=== PATIENT | male | born 1975 | race Caucasian/White ===

== ENCOUNTER 2019-12-28 14:53 | Outpatient (CLI) | payer OTHER, SELFPAY ==
--- NOTE | 2019-12-28 14:59 | MR_ITS ---
WS: [id number] MRI HEAD WITH CONTRAST WITH ATTENTION TO THE INTERNAL AUDITORY CANALS TECHNIQUE: Sagittal T1, T2 axial, T2 axial flair, axial susceptibility weighted imaging, axial diffus ion weighted images, and coronal T2 images were obtained. Pre and post T1 axial and post T1 coronal i mages. ADC and FSPGR images. Post gadolinium images with attention to the internal auditory canals. A xial fiesta imaging. CLINICAL INFORMATION: SARAH SENSORINEURAL HEARING LOSS;TINNITUS RT EAR COMPARISON: None. FINDINGS: No evidence of restricted diffusion to suggest acute ischemia. Ventricular system and basal cisterns are patent. Incidental cavum septum callosum and vergae. No suspicious intracranial signal abnormalities. Mild parenchymal volume loss. Normal posterior fossa. Normal vascular flow voids at the skull base. No extra-axial fluid collection s. No evidence of mass or mass effect. Paranasal sinuses are well aerated. Mild mucosal thickening in the mastoid air cells. Proximal 7th an d 8th cranial nerves appear normal. Normal trigeminal nerve root entry zones. No evidence of enhancin g IAC or CP angle mass. No abnormal gadolinium enhancement. Normal dural venous sinuses. Prominent cervical lymph nodes in the upper cervical chains likely reactive. Normal optic chiasm and pituitary infundibulum. Normal cavernous sinuses and Meckel's cave. No hemosiderin on the susceptibly weighted images. MR/MR iac's wo/w con* [id number] IMPRESSION: 1. No evidence of restricted diffusion to suggest acute ischemia. 2. No evidence of enhancing IAC or CP angle mass. Normal trigeminal nerve root entry zones. 3. Mild mucosal thickening in the mastoid air cells. 4. Paranasal sinuses are well aerated. 5. Mild parenchymal volume loss. 6. No abnormal intracranial enhancement. 7. Prominent cervical lymph nodes in the upper cervical chains partially visua lized nonspecific but likely reactive.
== END 2019-12-28 14:54 | disposition home or self-care (01) ==
LOC: RADSHAW 14:57
PROVIDERS: Family Provider Nurse Practitioner; PCP Nurse Practitioner; Visit Provider Specialist
DX: H90.3 Sensorineural hearing loss, bilateral (principal); H93.11 Tinnitus, right ear
CPT/HCPCS: 70553; A9579

== ENCOUNTER → 2021-04-16 08:07 | Outpatient (BNVA) | payer OTHER, SELFPAY | PROVIDERS: Family Provider Nurse Practitioner; PCP Nurse Practitioner; Referring Provider Family Medicine; Visit Provider Specialist | DX: G56.02 Carpal tunnel syndrome, left upper limb (principal); M79.641 Pain in right hand | CPT/HCPCS: 73130 ==

== ENCOUNTER → 2021-04-25 09:06 | Outpatient (BNVA) | payer OTHER, SELFPAY | PROVIDERS: Family Provider Nurse Practitioner; PCP Nurse Practitioner; Visit Provider Specialist | DX: Z20.822 Contact with and (suspected) exposure to COVID-19 (principal); G56.02 Carpal tunnel syndrome, left upper limb | CPT/HCPCS: 87635 ==

== ENCOUNTER 2021-05-01 05:52 | Day surgery (SDC) | payer OTHER, SELFPAY ==
[2021-04-30 12:30] VITALS: BMI 30.1
[2021-05-01 06:06] VITALS: BP 160/102; PULSE 76; RESP 18; TEMP 36.1; O2SAT 98
[2021-05-01] MEDS: sodium chloride 0.9% 1,000 ML 30 ML IV (06:40)
[2021-05-01] MEDS: acetaminophen 1,000 MG/100 ML PIGGYBACK 400 MG IV (06:41)
[2021-05-01] MEDS: CELEcoxib 200 mg Capsule 400 MG PO (06:41)
--- NOTE | 2021-05-01 06:56 | W.PM.OPSUD ---
Surgery/Procedure H&P Update DATE OF PROCEDURE: May 01, 2021 DATE H&P PERFORMED: 04/16/21 H&P UPDATE INFORMATION: I have reviewed H&P completed within last 30 days, I have examined patient prior to procedure and No changes to prior documentation PREOP DIAGNOSIS: Left carpal tunnel syndrome PLANNED PROCEDURE: Operation Date: 05/01/21 07:00 Proposed Procedures p Carpal Tunnel Release [id number] G56.00(Left) - Christie Kelly MD Related Problem List Diagnoses (1) Left carpal tunnel syndrome:
--- NOTE | 2021-05-01 06:57 | ANES.PREANE2 ---
Pre-Anesthetic Assessment Pre-Anesthetic Assessment: Height/Weight: Height 1.78 m Weight 95.254 kg Temp Pulse Resp BP Pulse Ox 97.0 F L 76 18 160/102 98 05/01/21 06:06 05/01/21 06:06 05/01/21 06:06 05/01/21 06:06 05/01/21 06:06 Preop Diagnosis: Left carpal tunnel syndrome Proposed Procedure: Operation Date: 05/01/21 07:00 Proposed Procedures p Carpal Tunnel Release [id number] G56.00(Left) - Christie Kelly MD Was Beta Aicha taken within 24 hours: N/A Was Clonidine taken within 24 hours: N/A Last intake: Intake Last Liquid Date 04/30/21 Last Liquid Time 20:00 Last Solid Date 04/30/21 Last Solid Time 20:00 Social: Social History: No alcohol and No tobacco Exam: Pre-Anes Outpt Exam: alert, oriented x 3, clear to auscultation bilaterally and regular rate & rhythm Airway: Submandibular: WNL Cervical ROM: WNL MP: 1 History/ROS: No significant history except as noted Pulmonary: Pulmonary: None reported CV/HEM: CV/HEM: Arrythmia Comments: s/p successful ablation for WPW : : None reported Hepatic: Hepatic: None reported GI: GI: None reported Metabolic: Metabolic: None reported Musc/skel: Musc/skel: None reported Neuropsych: Neuropsych: None reported Anesthetic Plan: ASA status: 2 Anesthesia: General Risk of > 500 ml blood loss (7ml/kg in children): No Meds/Allergies Current Medications: Current Medications Generic Name Dose Route Start Last Admin Trade Name Trumanq PRN Reason Stop Dose Admin Sodium Chloride 1,000 mls @ 30 ml s/hr 05/01/21 06:00 05/01/21 06:40 Sodium Chloride 0.9% IV 05/02/21 05:59 30 mls/hr .Q24H ALEJANDRO Administration PFSH Anesthesia PFSH: Social History Smoking and tobacco status: never smoked Data Anesthesia Cardiac Studies: No Data to Display
[2021-05-01 08:13] VITALS: BP 176/103; PULSE 75; RESP 17; TEMP 36.2; O2SAT 98
[2021-05-01 08:15] VITALS: BP 174/104; PULSE 74; RESP 15; O2SAT 99
[2021-05-01 08:20] VITALS: BP 134/100; PULSE 77; RESP 20; TEMP 36.2; O2SAT 99
[2021-05-01 08:30] VITALS: BP 132/97; PULSE 73; RESP 18; TEMP 36.6; O2SAT 98
[2021-05-01 08:49] VITALS: BP 144/104; PULSE 72; RESP 18; TEMP 36.6; O2SAT 98
--- NOTE | 2021-05-01 09:06 | PM.OP ---
Operative Report Date of procedure: May 01, 2021 Pre-op Diagnosis: Left carpal tunnel syndrome Post-op diagnosis: same Post-op Findings: Significant compression across the carpal canal with small thenar cyst Procedure Done: Left carpal tunnel release Implants: None Pathology: none sent Surgeon: Christie Kelly Anesthesia: MAC (With Agatha block, ASA 2) Estimated blood loss (mL): 2 Tourniquet time (min): 40 Tourniquet time: At 275 mmHg IV fluids (mL): 500 Urine output (mL): 0 Urine output: No Garcia Complications: None Findings: Significant compression across the carpal canal with hourglass changes in the median nerve and discoloration. Additionally, cystic fluid along the thenar aspect of the median nerve Condition: stable Disposition: PACU (Then to same-day surgery for discharge to home) Brief History: This 46-year-old gentleman previously underwent right carpal tunnel release. He recovered nicely from this. Most recently, he presented with similar symptoms in his left hand. He wished to proceed with left carpal tunnel surgery. Risks and complications were discussed with him. The patient understood and wished to proceed with operative intervention. Questions were answered and consents were signed preoperatively. Procedure: The patient was brought to the operating theater. The patient had a Ostrander block with MAC, ASA 2. The tourniquet was elevated to 275 mmHg for a total tourniquet time of 40 minutes. The patient was also given Ancef 2 g as well as 1 g of IV Tylenol preoperatively. The arm was then prepped and draped with DuraPrep in usual fashion with the arm draped free. A surgical pause was performed. At the time, the surgical pause, we confirmed the site and side of surgery. We also confirmed the patient's identity, appropriate and timely administration of preoperative antibiotics and preoperative surgical markings. An incision was then made along the thenar crease. The incision crossed the wrist joint in a curvilinear fashion. Dissection continued through skin and soft tissues using a scalpel. The palmaris longus was identified along with the transverse carpal ligament. Each of these was released carefully to avoid injury to the median nerve. We were able to dissect gently into the carpal canal which was noted to be quite tight with significant compression across the median nerve. The nerve was visualized and was an hourglass shape. The canal was subsequently palpated to assure there was no bony encroachment upon the canal. There was a quite thickened fibrous tissue within the canal, and this was opened longitudinally as well. At the time this was opened, there was thickened fluid consistent with cystic changes. The canal was then palpated distally and proximally to assure that my small finger was passed easily without impingement. Finding this to be so, attention was directed to closure. The wound was irrigated with ropivacaine plain. It was then closed with 3-0 nylon in an interrupted mattress fashion. Sterile dressing was then placed consisting of Dermabond, OpSite, fluffed fluffs, sterile soft roll, a volar splint, and an Triston wrap. The tourniquet was released after 40 minutes. There were no complications. There were no specimens. The procedure was well tolerated. Plan is the patient will be discharged home. Associated Problem List Diagnoses (1) Left carpal tunnel syndrome:
--- NOTE | 2021-05-01 10:04 | ANE.PACU2 ---
Inpatient post-anesthesia follow up: Airway intact: Yes Vital signs: Temperature 97.8 F Pulse Rate 72 Respiratory Rate 18 Blood Pressure 144/104 Pulse Oximetry 98 Oxygen Delivery Me thod Room Air Oxygen Flow Rate Fraction of Inspir ed Oxygen Hydration adequate: Yes Nausea and vomiting: Yes Pain level: 2 Mental status: Baseline
== END 2021-05-01 08:55 | disposition home or self-care (01) ==
PROVIDERS: PCP Nurse Practitioner; Visit Provider Specialist
PROC: (CPT 64721; principal; 2021-05-01 07:00)
DX: G56.02 Carpal tunnel syndrome, left upper limb (principal)
CPT/HCPCS: 64721; 96365; J0690; J2704; J3010; J3490; J7030

== ENCOUNTER 2022-06-03 06:08 | Outpatient (CLI) | payer OTHER, SELFPAY ==
--- NOTE | 2022-06-03 06:15 | US_ITS ---
WS: [id number] RIGHT UPPER QUADRANT ULTRASOUND HISTORY: INCREASED LIVER ENZYMES COMPARISON: None available. Liver: 15.4 cm in length. Normal size liver. Moderate coarse echotexture throughout the liver and att enuation. No mass or bile duct dilatation. Portal Vein: Normal hepatopetal flow with monophasic waveform. Gallbladder: Normally distended gallbladder with no stones or wall thickening. CBD: 0.4 cm Pancreas: Normal size and echogenicity. Right kidney: 11.0 cm in length. Normal size and echogenicity. No hydronephrosis or mass. Aorta and IVC: Unremarkable abdominal aorta and IVC. No ascites. US/US abdomen limited [id number] IMPRESSION: 1. Moderate hepatic steatosis. 2. Normal gallbladder.
== END 2022-06-03 06:09 | disposition home or self-care (01) ==
LOC: RAD 06:09
PROVIDERS: PCP Nurse Practitioner; Visit Provider Nurse Practitioner
DX: R74.8 Abnormal levels of other serum enzymes (principal); K76.0 Fatty (change of) liver, not elsewhere classified
CPT/HCPCS: 76705

== ENCOUNTER 2022-07-01 12:05 | Emergency (ER) | payer OTHER, SELFPAY ==
[2022-07-01 12:15] VITALS: BP 134/90; PULSE 98; RESP 16; TEMP 36.7; O2SAT 97
--- NOTE | 2022-07-01 12:48 | W.ED.EYEPROB ---
HPI - Eye Problem General: Chief complaint: Eye Problems Stated complaint: possible spider bite to right eye Time Seen by Provider: 07/01/22 12:20 Source: patient Mode of arrival: ambulatory Limitations: no limitations History of Present Illness: Patient is a 47-year-old male who presents to ED today with a complaint of swelling above his right eye/eyebrow that he has had over the past 2 to 3 days. Patient feels like he may have gotten bit by something. Patient is not having any eye pain. No painful eye movements or discharge. No fevers. He has no other injuries or complaints at this time. chief complaint: other (swelling to R eye brow) Onset (ago): day(s) Duration: constant Location: right eye Eye Symptoms: redness and pain Place: home Severity: mild Associated symptoms: Reports no associated symptoms; Denies fever(s) Treatments Prior to Arrival: none Related Data: Patient tetanus UTD: Yes Review of Systems Const: Denies: fever(s), chills, body aches, fatigue or malaise Eyes: Denies: change in vision, blurry vision, blind spots, photophobia, eye discomfort, eye discharge, eye redness, yellow eyes, floaters or seeing flashes PFSH ED PFSH: Social History Smoking and tobacco status: former smoker Physical Exam Const: COMMON NORMALS: no acute distress, average body habitus, patient oriented x3, no limitations, healthy appearing, alert and well nourished HENMT: COMMON NORMALS: normocephalic, atraumatic and Normal external nose present HEAD & SCALP: normal to inspection, normocephalic and atraumatic FACE & SINUS: normal facial exam FACE & SINUS IMAGES: 1. mild swelling/edema to R eyebrow; no fluctuance; no obvious bite lamar; no periorbital/orbital cellulitis NOSE: Normal external nose present Eye: COMMON NORMALS: Equal, round and reactive pupils present, EOMs intact bilaterally and conjunctivae normal GENERAL EYE: appearance normal, both eyes and all related structures and normal light reflex VISUAL ACUITY: Yes acuity normal ALIGNMENT: Yes alignment normal EYELID: eyelids normal CONJUNCTIVA: Yes conjunctivae normal SCLERA: sclerae normal CORNEA: Yes corneas normal PUPIL: Yes Equal, round and reactive pupils present DIRECT OPHTHALMOSCOPY: Yes normal light reflex Neck/C-Spine: COMMON NORMALS: no lymphadenopathy Neuro: COMMON NORMALS: patient oriented x3 SENSORIUM/ORIENTATION: Yes alert Course Vital Signs: Vital signs: Vital Signs Temperature 98.0 F 07/01/22 12:15 Pulse Rate 98 07/01/22 12:15 Respiratory Rate 16 07/01/22 12:15 Blood Pressure 134/90 07/01/22 12:15 Pulse Oximetry 97 07/01/22 12:15 MDM - Eye Problem Medical Decision Making Will go ahead and place on antibiotics for localized cellulitis near his right eyebrow. Return ED precautions given Discharge Plan Discharge Patient Disposition: Home Clinical Impression: Cellulitis of eyebrow Condition: Stable Prescriptions: New amoxicillin-pot clavulanate 875-125 mg tablet 1 tab PO BID Qty: 14 0RF No Action acetaminophen [Tylenol] 325 mg Capsule 1,300 mg PO BID hydrocodone-acetaminophen 5-325 mg tablet 1 tab PO Q4H PRN (Reason: pain) Qty: 20 0RF Rx Instructions: Please modify your schedule Tylenol intake to account for 325 mg of Tylenol per tablet Discharge Orders: Discharge ED (Routine); Ordered 07/01/22 Ordered By: Nika Ross Referrals: Sarita Caldwell FNP [Primary Care Provider] - Activity Restrictions/Additional Instructions: As we discussed start your antibiotics immediately. Please follow-up with primary care later this week if symptoms do not seem to be improving. You need to return to the emergency department for worsening swelling, pain, severe headache, painful eye movements, drainage, fevers, or any other concerns you may have. Coding Level of Care Code ED Mechanical Project Manager for Tessie Chin
== END 2022-07-01 13:28 | disposition home or self-care (01) ==
PROVIDERS: Emergency Provider Physician Assistant; PCP Nurse Practitioner
DX: L03.211 Cellulitis of face (principal); Z87.891 Personal history of nicotine dependence
CPT/HCPCS: 99283

== ENCOUNTER 2022-10-10 18:07 | Emergency (ER) | payer OTHER, SELFPAY ==
[2022-10-10 18:19] VITALS: BP 140/95; PULSE 95; RESP 16; TEMP 36.7; O2SAT 98
--- NOTE | 2022-10-10 18:24 | ED_ITS ---
HPI - Extremity Problem General: Chief complaint: Extremity Problem,Nontraumatic Stated complaint: Left Leg Knot Time Seen by Provider: 10/10/22 18:24 History of Present Illness: 47-year-old gentleman presenting with concern over knot on the back of his left thigh. Atraumatic onset a few weeks ago. Intermittent mild to moderate pain especially when palpated some distal radiation. No other specific changes in health, exacerbating, or alleviating factors identified. Onset (ago): week(s) Pain Consistency: constant Location: left and lower extremity Quality: aching Relieving factors: nothing Exacerbating factors: nothing Associated symptoms: Reports no associated symptoms Review of Systems General: Reports: 10 or more systems reviewed and unremarkable except in HPI and below PFSH ED PFSH: Social History Smoking and tobacco status: former smoker Physical Exam Const: COMMON NORMALS: alert GENERAL APPEARANCE: cooperative and well developed HENMT: COMMON NORMALS: normocephalic and atraumatic HEAD & SCALP: normocephalic and atraumatic Eye: COMMON NORMALS: conjunctivae normal CONJUNCTIVA: Yes conjunctivae normal SCLERA: sclerae normal Neck/C-Spine: COMMON NORMALS: supple GENERAL: Yes trachea midline Resp: COMMON NORMALS: normal respiratory effort EFFORT & INSPECTION: Yes able to speak in complete sentences Cardio: COMMON NORMALS: regular rate and regular rhythm RATE: regular rate RHYTHM: regular rhythm Extremity: NARRATIVE EXTREMITY EXAM: Left lower extremity posterior thigh tenderness and mild swelling compared to contralateral side. No evidence of cellulitic changes or defined palpable mass. GENERAL: Yes normal exam except as noted and No edema Neuro: COMMON NORMALS: moves all extremities SENSORIUM/ORIENTATION: Yes alert and No Orientation impaired Course Vital Signs: Vital signs: Vital Signs Temperature 98.0 F 10/10/22 18:19 Pulse Rate 95 10/10/22 18:19 Respiratory Rate 16 10/10/22 18:19 Blood Pressure 140/95 10/10/22 18:19 Pulse Oximetry 98 10/10/22 18:19 Oxygen Delivery Me thod Room Air 10/10/22 18:19 MDM - Extremity (Nontraumatic) Medical Decision Making 47-year-old gentleman presenting for evaluation of atraumatic left leg pain and swelling. Exam as above. Patient is nontoxic. No chest pain or shortness of breath. Ultrasound for evaluation of possible DVT. Ultrasound is negative. The results of ED evaluation were discussed with the patient including prescriptions and/or symptomatic cares (if applicable) including appropriate and responsible use, followup plan, and return precautions. The patient verbalized understanding and felt safe for discharge. Medical Records I reviewed the patient's medical records. Lab Data I reviewed the patient's lab results. Radiology Impressions Venous Duplex 10/10/22 18:28 IMPRESSION: No evidence of deep vein thrombosis. Discharge Plan Discharge Patient Disposition: Home Clinical Impression: Left thigh pain Condition: Stable Prescriptions: No Action acetaminophen [Tylenol] 325 mg Capsule 1,300 mg PO BID hydrocodone-acetaminophen 5-325 mg tablet 1 tab PO Q4H PRN (Reason: pain) Qty: 20 0RF Rx Instructions: Please modify your schedule Tylenol intake to account for 325 mg of Tylenol per tablet amoxicillin-pot clavulanate 875-125 mg tablet 1 tab PO BID Qty: 14 0RF Discharge Orders: Discharge ED (Routine); Ordered 10/10/22 Ordered By: Dmitri Prater Referrals: Sarita Caldwell FNP [Primary Care Provider] - Discharge Diet: Usual diet Discharge Activity: Increase activity as tolerated Patient Instructions: Lumbar Radiculopathy (ED), Arthralgia (ED), Opioid Safety Activity Restrictions/Additional Instructions: Thank you for visiting the emergency department. You were seen evaluated for leg pain and swelling. The exact cause of your symptoms is unclear. No evidence of blood clot was identified. No soft tissue fluid collection was seen. Please follow-up with your primary care provider. You may use [id number] medications such as acetaminophen and ibuprofen for pain however please do not exceed the daily recommended dosage as listed on the packaging and please keep in mind that many namebrand medications contain the same active ingredients. Please avoid these medications if previously instructed to do so by another physician due to other underlying medical condition. Return to the emergency department for fevers, uncontrolled pain, new redness or swelling, weakness, loss of control of bowel or bladder, numbness in the groin region, or anything else that you are concerned about and feel needs emergency department evaluation. Coding Level of Care Code ED Branch Associate Teller for Tessie Chin
--- NOTE | 2022-10-10 18:28 | USR_ITS ---
PROCEDURE INFORMATION: Exam: US Duplex Left Lower Extremity Veins, Limited Exam date and time: 10/10/2022 7:34 PM Age: 47 years old Clinical indication: Pain; Leg, upper; Patient HX: Left posterior thigh knotting x 3 days. No history of dvt per patient. ; Additional info: Posterior thigh swelling/pain, eval dvt TECHNIQUE: Imaging protocol: Real-time duplex ultrasound of the left extremity with 2-D mon scale, color Doppler flow and spectral waveform analysis including responses to compression and other maneuvers (when performed) with image documentation. Limited exam focused on the left lower extremity veins. COMPARISON: No relevant prior studies available. FINDINGS: Left deep veins: Unremarkable. The common femoral, femoral, proximal profunda femoral and popliteal veins are patent without thrombus. Normal Doppler waveforms. Normal compressibility and/or augmentation response. Left superficial veins: Unremarkable. Saphenofemoral junction is patent without thrombus. Soft tissues: Unremarkable. US/CV venous duplex [facility] [id number] IMPRESSION: No evidence of deep vein thrombosis.
== END 2022-10-10 20:21 | disposition home or self-care (01) ==
PROVIDERS: Emergency Provider Emergency Medicine; PCP Nurse Practitioner
DX: M79.652 Pain in left thigh (principal); Z87.891 Personal history of nicotine dependence
CPT/HCPCS: 93971; 99284

== ENCOUNTER 2024-05-08 10:51 | Emergency (ER) | payer OTHER, SELFPAY ==
--- NOTE | 2024-05-08 10:52 | XRR_ITS ---
PROCEDURE INFORMATION: Exam: XR Chest Exam date and time: 05/08/2024 11:23 AM Age: 49 years old Clinical indication: Cough; Prior surgery; Surgery date: 6+ months; Surgery type: Heart ablasion TECHNIQUE: Imaging protocol: Radiologic exam of the chest. Views: 1 view. COMPARISON: No relevant prior studies available. FINDINGS: Tubes, catheters and devices: None. Lungs: Left-sided perihilar and basilar pulmonary linear interstitial and alveolar opacities identified within lungs. Left perihilar alveolar opacity with questionable nodularity measuring up to 15 mm. The lungs appear otherwise clear. Lung volumes are decreased. Decreased lung volume appears more pronounced on the left side. Pleural spaces: No pleural effusion. No pneumothorax. Heart/Mediastinum: Mediastinum and carlos appear unremarkable. Diaphragm: Elevation of the left hemidiaphragm is demonstrated. Bones/joints: Mild generalized bony degenerative changes. XR/XR chest 1V portable [id number] IMPRESSION: 1. Pulmonary atelectasis or acute infiltrates within left-sided perihilar and basilar chest. 2. Questionable lung nodularity in the left mid lung measuring [address] chest imaging. 3. Left lung volume loss.
[2024-05-08 10:57] VITALS: BP 144/87; PULSE 105; RESP 16; TEMP 36.9; O2SAT 98; BMI 30.8
[2024-05-08 11:52] LABS: Covid PCR NEGATIVE (Negative); Influenza A NEGATIVE (Negative); Influenza B NEGATIVE (Negative); Respiratory Syncytial Virus Ce NEGATIVE (Negative)
--- NOTE | 2024-05-08 11:55 | PC.PHAR ---
patient is [facility]
--- NOTE | 2024-05-08 12:00 | ED_ITS ---
HPI - URI/Sore Throat 2 General: Chief Complaint: Upper Respiratory Infection Stated Complaint: cough Time Seen by Provider: 05/08/24 11:46 History of Present Illness: 49-year-old male presents emergency room complaining of shortness of breath nonproductive cough for the last couple of weeks. Denies any hemoptysis no swelling in his feet no orthopnea. Low-grade fever. He is tachycardic on arrival he is not requiring any oxygen supplementation Associated symptoms: Deny abdominal pain, chills, chest pain or fever(s) Related Data Home Medications Medication Instructions Recorded Confirmed citalopram 20 mg tablet 20 mg PO DAILY 05/08/24 05/08/24 lisinopril 10 1 tab PO DAILY 05/08/24 05/08/24 mg-hydrochlorothiazide 12.5 mg tablet Previous Rx's Medication Instructions Recorded albuterol sulfate 90 mcg/actuation 2 inh inhalation Q4H PRN shortness 05/08/24 aerosol inhaler of breath or wheezing #18 grams levofloxacin 750 mg tablet 750 mg PO DAILY 7 days #7 tabs 05/08/24 Allergies Allergy/AdvReac Type Severity Reaction Status Date / Time wool Allergy ALGY-Difficulty Verified 05/08/24 10:59 Breathing Review of Systems 2 Const: Denies: fever(s) or chills Card: Denies: chest pain Resp: Reports: dyspnea, non-productive cough and chest congestion GI: Denies: abdominal pain : Denies: dysuria, urinary frequency or urinary urgency Musc: Denies: neck pain or back pain Skin/Breast: Denies: rash PFSH ED 2 PFSH: Social History Smoking and tobacco/nicotine status: former use of tobacco/nicotine Physical Exam 2 Const: COMMON NORMALS: no acute distress GENERAL APPEARANCE: cooperative and comfortable ORIENTATION/CONSCIOUSNESS: Yes awake, Yes oriented to person, Yes oriented to place and Yes oriented to time HENMT: COMMON NORMALS: normocephalic, atraumatic and hearing grossly normal bilaterally HEAD & SCALP: normocephalic and atraumatic Resp: COMMON NORMALS: normal respiratory effort, No retractions and No use of accessory muscles AUSCULTATION: rales and wheezes Cardio: COMMON NORMALS: regular rate, regular rhythm and No murmurs present (Cardio) RATE: regular rate RHYTHM: regular rhythm GI: COMMON NORMALS: Soft to palpation and No hepatosplenomegaly present A USCULTATION: Yes normoactive bowel sounds PALPATION: Yes Soft to palpation, No Tenderness to palpation present (GI), No Guarding due to palpation present (GI) and Yes No hepatosplenomegaly present Extremity: COMMON NORMALS: normal to inspection, capillary refill normal, no clubbing, cyanosis or edema, no calf tenderness and no pedal edema Neuro: SENSORIUM/ORIENTATION: Yes oriented to person, Yes oriented to place and Yes oriented to time Skin: COMMON NORMALS: no rashes or lesions noted GENERAL SKIN EXAM: no rashes or lesions noted Course 2 Vital Signs: Vital signs: Vital Signs Temperature 98.4 F 05/08/24 10:57 Pulse Rate 76 05/08/24 14:20 Respiratory Rate 18 05/08/24 12:39 Blood Pressure 141/73 05/08/24 14:20 Pulse Oximetry 98 05/08/24 14:20 Oxygen Delivery Me thod Room Air 05/08/24 12:39 MDM - URI/Sore Throat Medical Decision Making Chest x-ray shows abnormality in left lower lobe CT shows reactive lymph nodes. Will start on Levaquin for pneumonia encourage patient to follow-up about medical okay okay. Use albuterol as needed. Patient encouraged to follow-up with a chest x-ray with primary care in 2 weeks Lab Data 05/08/24 13:13 05/08/24 13:13 Radiology Impressions Chest X-Ray 05/08/24 10:52 IMPRESSION: 1. Pulmonary atelectasis or acute infiltrates within left-sided perihilar and basilar chest. 2. Questionable lung nodularity in the left mid lung measuring [address] chest imaging. 3. Left lung volume loss. Chest CTA 05/08/24 12:01 IMPRESSION: 1. Significantly limited evaluation of the pulmonary arteries, as described above. No gross evidence for large central pulmonary embolus. 2. Left perihilar upper lobe and lingular nodular interstitial and alveolar consolidation pneumonia. Differential diagnostic considerations include atypical/fungal, viral (COVID) and bacterial pneumonia. Recommend close imaging followup until complete resolution. 3. Enlarged mediastinal and hilar lymphadenopathy. Likely reactive lymphadenopathy. Malignancy not excluded. Recommend CT follow-up within 6 months. 4. Severe hepatic steatosis. Nonspecific heterogeneous and irregular appearance of the liver. Recommend correlation with liver function tests. 5. Splenomegaly. Laboratory Results WBC 8.68 10^3/uL (3.29-11.43) 05/08/24 13:13 RBC 4.83 10^6/uL (3.85-5.65) 05/08/24 13:13 Hgb 14.40 g/dL (11.27-16.99) 05/08/24 13:13 Hct 41.8 % (37-53) 05/08/24 13:13 MCV 86.5 fl (82-101) 05/08/24 13:13 MCH 29.8 pg (27-33) 05/08/24 13:13 MCHC 34.4 g/dL (30-55) 05/08/24 13:13 RDW 12.2 % (12.1-15.1) 05/08/24 13:13 Plt Count 262 10^3/cmm (157-399) 05/08/24 13:13 MPV 8.5 fL (7.4-10.4) 05/08/24 13:13 Neut % (Auto) 70.0 % 05/08/24 13:13 Lymph % (Auto) 16.0 % 05/08/24 13:13 [place] % (Auto) 9.9 % 05/08/24 13:13 Eos % (Auto) 2.8 % 05/08/24 13:13 Baso % (Auto) 0.8 % 05/08/24 13:13 Neut # (Auto) 6.08 10^3/uL (1.8-7.7) 05/08/24 13:13 Lymph # (Auto) 1.4 10^3/uL (0.8-4.8) 05/08/24 13:13 [place] # (Auto) 0.9 10^3/uL (0.2-0.9) 05/08/24 13:13 Eos # (Auto) 0.2 10^3/uL (0.0-0.8) 05/08/24 13:13 Baso # (Auto) 0.1 10^3/uL (0.0-0.1) 05/08/24 13:13 Nucleated RBC % (auto) 0 % 05/08/24 13:13 Nucleated RBCs # 0.0 /100WBC 05/08/24 13:13 Sodium 133 mmol/L (136-145) L 05/08/24 13:13 Potassium 3.5 mmol/L (3.5-5.1) 05/08/24 13:13 Chloride 94 mmol/L (98-107) L 05/08/24 13:13 Carbon Dioxide 26 mmol/L (22-29) 05/08/24 13:13 Anion Gap 16.5 (5-19) 05/08/24 13:13 BUN 10 mg/dL (6-20) 05/08/24 13:13 Creatinine 0.9 mg/dL (0.7-1.2) 05/08/24 13:13 GFR Calculation 90.4 mL/min (90-130) 05/08/24 13:13 Glucose 99 mg/dL (65-115) 05/08/24 13:13 Calculated Osmolality 275 mOsm/kg (285-295) L 05/08/24 13:13 Calcium 9.1 mg/dL (8.5-10.5) 05/08/24 13:13 Total Bilirubin 0.6 mg/dL (0.15-1.2) 05/08/24 13:13 AST 31 U/L (0-40) 05/08/24 13:13 ALT 63 U/L (0-41) H 05/08/24 13:13 Alkaline Phosphatase 91 U/L (40-130) 05/08/24 13:13 Total Protein 7.2 g/dL (6.6-8.7) 05/08/24 13:13 Albumin 4.1 g/dL (3.5-5.2) 05/08/24 13:13 Globulin 3.1 g/dL (1.3-4.6) 05/08/24 13:13 Coronavirus (PCR) Negative (Negative) 05/08/24 11:02 Influenza A (PCR) Negative (Negative) 05/08/24 11:02 Influenza Type B (PCR) Negative (Negative) 05/08/24 11:02 RSV (PCR) Negative (Negative) 05/08/24 11:02 All radiology interpretation(s) finalized by discharge Discharge Plan Discharge Patient Disposition: Home Clinical Impression: Pneumonia Condition: Stable Prescriptions: New albuterol sulfate 90 mcg/actuation HFA aerosol inhaler 2 inh INHALATION Q4H PRN (Reason: shortness of breath or wheezing) Qty: 18 0RF levofloxacin 750 mg tablet 750 mg PO DAILY 7 Days Qty: 7 0RF No Action citalopram 20 mg Tablet 20 mg PO DAILY lisinopril-hydrochlorothiazide 10-12.5 mg tablet 1 tab PO DAILY Discharge Orders: Discharge ED (Routine); Ordered 05/08/24 Ordered By: Francisco Wells Referrals: Sarita Caldwell FNP [Primary Care Provider] - Discharge Diet: Usual diet Discharge Activity: Increase activity as tolerated Patient Instructions: Opioid Safety, Pain Management Activity Restrictions/Additional Instructions: Thank you for choosing [facility] for your healthcare needs today. It is very important that you follow up as instructed or that you return to the Emergency Department should you have concerns or if your condition changes or worsens in any way. You are seen today with complaint of cough and shortness of breath. On chest x- ray. You had a pneumonia there is some increased lymph nodes. You should have a follow-up chest x-ray in 10 to 14 days. You are prescribed antibiotics 1 pill daily for 7 days. Coding Level of Care Code ED Family Day Carer for Tessie Chin
--- NOTE | 2024-05-08 12:01 | CTR_ITS ---
PROCEDURE INFORMATION: Exam: CTA Chest With Contrast Exam date and time: 05/08/2024 12:17 PM Age: 49 years old Clinical indication: Pain; Shortness of breath; Chest pressure; Additional info: Chest discomfort tachycardia shortness of breath abn cxr TECHNIQUE: Imaging protocol: Computed tomographic angiography of the chest with contrast. Exam focused on the arteries. 3D rendering (Not supervised by radiologist): MIP and/or 3D reconstructed images were created by the technologist. Radiation optimization: All CT scans at this facility use at least one of these dose optimization techniques: automated exposure control; mA and/or kV adjustment per patient size (includes targeted exams where dose is matched to clinical indication); or iterative reconstruction. Contrast material: OMNIPAQUE 350; Contrast volume: 65 ml; Contrast route: INTRAVENOUS (IV); COMPARISON: CR (CHEST, ) 05/08/2024 11:23 AM RADIATION DOSE METRICS: Total DLP (mGy-cm): 399.8 FINDINGS: Pulmonary arteries: Limited evaluation of the pulmonary arteries. Suboptimal opacification of the pulmonary arteries at the time of imaging. No gross evidence for large central pulmonary embolus. Great vessels off aortic arch: Unremarkable. Aorta: Mild atherosclerotic calcification demonstrated within the aorta. Veins: No pulmonary venous congestion is demonstrated within the lungs. Lungs: Clustered nodular interstitial and alveolar opacities in the left parahilar upper lobe and lingula. Alveolar consolidation densities are most severe within the lingula. Left perihilar and lingular bronchial wall thickening. Mild posterior dependent atelectasis within the lower lungs. The lungs appear otherwise clear. Pleural spaces: Unremarkable. No pneumothorax. No pleural effusion. Heart: The heart does not appear enlarged. No significant pericardial effusion. Lymph nodes: Enlarged central left mediastinum and left hilar lymphadenopathy. Lymph nodes measure up to 2.6 cm. Liver: Liver demonstrates diffuse severe hypodensity. Liver appears heterogeneous with irregular border. Possible hepatic parenchymal disease. Incomplete visualization of the liver on this study. Spleen: The spleen is enlarged. Spleen measurement: 15.5 cm length. Incomplete visualization of the spleen on this study. Bones/joints: No acute bony abnormality identified. Soft tissues: Unremarkable. CT/CT angio chest PE protcl [id number] IMPRESSION: 1. Significantly limited evaluation of the pulmonary arteries, as described above. No gross evidence for large central pulmonary embolus. 2. Left perihilar upper lobe and lingular nodular interstitial and alveolar consolidation pneumonia. Differential diagnostic considerations include atypical/fungal, viral (COVID) and bacterial pneumonia. Recommend close imaging followup until complete resolution. 3. Enlarged mediastinal and hilar lymphadenopathy. Likely reactive lymphadenopathy. Malignancy not excluded. Recommend CT follow-up within 6 months. 4. Severe hepatic steatosis. Nonspecific heterogeneous and irregular appearance of the liver. Recommend correlation with liver function tests. 5. Splenomegaly.
[2024-05-08] MEDS: iohexol 350 mg/mL 500 mL Btl (per mL) IV (12:18)
[2024-05-08 12:39] VITALS: RESP 18; O2SAT 96
[2024-05-08 13:22] LABS: Basophils # 0.1 10^3/uL (0.0-0.1); Basophils % 0.8 %; Eosinophils # 0.2 10^3/uL (0.0-0.8); Eosinophils % 2.8 %; Hematocrit 41.8 % (37-53); Lymphocytes # 1.4 10^3/uL (0.8-4.8); Mean Corpuscular HGB Conc 34.4 g/dL (30-55); Mean Corpuscular Hemoglobin 29.8 pg (27-33); Mean Corpuscular Volume 86.5 fl (82-101); Mean Platelet Volume 8.5 fL (7.4-10.4); Monocytes # 0.9 10^3/uL (0.2-0.9); Monocytes % 9.9 %; Neutrophils # 6.08 10^3/uL (1.8-7.7); Nucleated Red Blood Cells % 0 %; Platelet Count 262 10^3/cmm (157-399); Red Blood Count 4.83 10^6/uL (3.85-5.65); Red Cell Distribution Width 12.2 % (12.1-15.1); White Blood Count 8.68 10^3/uL (3.29-11.43)
[2024-05-08 13:49] LABS: Alanine Aminotransferase 63 U/L (0-41); Albumin Level 4.1 g/dL (3.5-5.2); Alkaline Phosphatase 91 U/L (40-130); Anion Gap 16.5 (5-19); Aspartate Amino Transferase 31 U/L (0-40); Blood Urea Nitrogen 10 mg/dL (6-20); Calcium 9.1 mg/dL (8.5-10.5); Carbon Dioxide 26 mmol/L (22-29); Chloride 94 mmol/L (98-107); Globulin 3.1 g/dL (1.3-4.6); Glomerular Filtration Rate 90.4 mL/min (90-130); Glucose 99 mg/dL (65-115); Osmolality Calculated 275 mOsm/kg (285-295); Potassium 3.5 mmol/L (3.5-5.1); Sodium 133 mmol/L (136-145); Total Bilirubin 0.6 mg/dL (0.15-1.2); Total Protein 7.2 g/dL (6.6-8.7)
[2024-05-08 14:20] VITALS: BP 141/73; PULSE 76; O2SAT 98
== END 2024-05-08 14:21 | disposition home or self-care (01) ==
PROVIDERS: Emergency Medicine; Emergency Provider Family Medicine; PCP Nurse Practitioner
DX: J18.9 Pneumonia, unspecified organism (principal); Z11.52 Encounter for screening for COVID-19; Z87.891 Personal history of nicotine dependence
CPT/HCPCS: 36415; 71045; 71275; 80053; 85025; 87637; 99285

== ENCOUNTER 2024-11-08 15:53 | Emergency (ER) | payer OTHER, SELFPAY ==
--- OUTSIDE RECORDS SUMMARY | 2023-12-15 09:01 | XMS_ITS | Encounter Summary ---
Author Name [facility] [place] Address [address] [place] [id number] Care Team Providers Care Garnisher Name Role Phone MAXIMINO SCOTT Primary Care Provider Unavail able Insurance Providers: All historical and current Section Date Range: From patient's date of to the date document was created. This section includes the names of all active insurance providers for the patient. Insurance Provider Type of Coverage Plan Name Start of Policy Coverage End of Policy Coverage Group Number Member ID Insurance Provider's Telephone Number Policy Sanford's Name Patient's Relationship to Policy Sanford [facility] VISION VISION SPECT ERA VISIO N PLAN Jun 12, 2010 [id number] 65 ANN MARIEMARTIYUNIEL CERVANTES PATIENT Selected Encounter This section includes the information on record at [place] for the Encounter. Date/Time Encounter Type Encounter Description Reason Provider Source Dec 15, 2023 02:01 PM MARYLU TEST PURE TONE AUDIOLOGY ICD-10-CM H93.13 Tinnitus, bilateral GRAVES,ALEXAND RA A E Encounter Template Text not used by [place] Assessments - Encounter Diagnoses This section includes the primary and secondary diagnoses documented for the Encounter. Date/Time Primary/Secondary Diagnosis Diagnosis Name Provider Source Dec 15, 2023 02:04 PM PRIMARY Tinnitus, bilateral GRAVES,ALEXAND RA A [place] [facility] Dec 15, 2023 02:04 PM SECONDARY Sensorineural hearing loss, bilateral GRAVES,ALEXAND RA A [place] [facility] Plan of Treatment: Future Appointments (+ 6 months) and Future Tests (+/- 45 days) The Plan of Treatment section includes future care activities for the patient from all [place] treatmentfacilities. This section includes future appointments and future orders which are active, pending or scheduled. Future Appointments This section includes appointments that were scheduled to occur 6 months from the date of the Encounter, up to a maximum of 20 appointments. The data comes from all [place] treatment facilities. Appointment Date/Time Appointment Type Appointme nt Facility Name Dec 23, 2023 03:00 PM [facility]ORY [facility] Jan 16, 2024 02:00 PM [facility] [facility] Jan 16, 2024 02:01 PM AMBULATORY - [place] [facility] Jan 21, 2024 02:30 PM [facility] [place] [facility] Feb 03, 2024 03:00 PM [facility] [place] [facility] [place] [facility] Feb 24, 2024 03:20 PM [facility] [place] [facility] [place] [facility] Mar 23, 2024 03:20 PM [facility] [place] [facility] Apr 20, 2024 03:20 PM [facility] [place] [facility] May 18, 2024 03:20 PM [facility] [place] [facility] [place] [facility] Jun 15, 2024 03:20 PM [facility] [place] [facility] Encounter Notes: All associated encounter notes This section contains the clinical notes associated to the Encounter. Date/Time Encounter Note(s) Provider Source Dec 15, 2023 08:07 AM AUDIOLOGY NOTE: LOCAL TITLE: HEARING CLINIC STANDARD TITLE: AUDIOLOGY NOTE DATE OF NOTE: DEC 15, 2023@08:07 ENTRY DATE: DEC 15, 2023@08:07:33 AUTHOR: RUFUS NEGRETE COSIGNER: URGENCY: STATUS: COMPLETED Diagnosis: Sensorineural Hearing Loss, Bilateral and Tinnitus, Bilateral Treatment: Hearing Evaluation Time spent with : 60 minutes [place] seen for an audiogram via Audio Telehealth and verbally consented to the Telehealth modality. Multi-factor personally identifiable information of the was obtained verbally (full name and date of ). [place] accompanied by: none Patient site: [facility] AUDIOLOGY HEARING EVALUATION: Patient seen today for an updated hearing evaluation. Patient adriana with damaged left hearing aid. - Ear surgery: right PE tube a few years ago - Aural Pain/Pressure/Drainage: no - Tinnitus: bilateral/constant - Noise Exposure: yes Patient requested service connection letter for tinnitus. Patient instructed to discuss concerns with manager creative services. HEARING DEVICES: 07/17/20 PHONAK AUDEO P90-R HILDA R [id number] 07/17/20 PHONAK AUDEO P90-R HILDA L [id number] - M SOLAR SALES SPECIALIST 4.0 - SIZE 1 - SMALL VENTED DOME 4.0 - CERUSHIELD DISK - NO RETENTION TAILS Phone Connectivity: yes AUDIOMETRIC EXAM: Otoscopy was performed by collaboration of telehealth clinical microbiological lab technician and provider via telehealth technology/video otoscope which revealed: Right: unremarkable Left: unremarkable Tympanograms: Right: normal ear canal volume and excess middle ear pressure Left: consistent with normal middle ear function Acoustic Reflex Thresholds: not performed due to time constraints Pure-Tone Air and Bone-Conduction Audiometric Testing revealed: Right: mild to moderately-severe sensorineural hearing loss Left: within normal limits through 2000 Hz, moderately-severe rising to mild sensorineural hearing loss Speech Pan [place] Threshold testing yielded: Right: 40 dBHL Left: 25 dBHL Word Recognition testing yielded: Right: 92% @ 75 dBHL Left: 96% @ 65 dBHL Word scoring may be impacted by quality of audio through telehealth medium. Test Reliability: Good. Negative pure-tone Marylu at 1000 Hz. Visual inspection of left hearing aid confirmed damaged left manufacturing supervisor. Cleaned hearing aids including replacement of right dome/filter and left manufacturing supervisor. A listening check revealed proper function. Assisted patient with pairing hearing aids to [employer] jose. PROVIDER COMMENTS/RECOMMENDATIONS: Hearing test results were reviewed with patient. Patient is a hearing aid candidate. Patient was counseled regarding realistic expectations for hearing aids, more specifically that hearing aids can make sounds louder but may not make speech more clear or understandable. Hearing conservation techniques were discussed and recommended. Hearing aid options were discussed, and the following devices ordered: [employer] L90-R HILDA - M SOLAR SALES SPECIALIST 5.0 - SIZE 1 - VENTED DOME 4.0 - SMALL - CERUSTOP - NO RETENTION TAILS Phone Connectivity: streaming and jose use PLAN: 1) Return to clinic in four weeks for 60 minute hearing aid fitting. 2) Recommend hearing evaluation annually or prn. expressed understanding and is in agreement with the plan. * Patient would like to mail 2020 hearing aid for battery replacement at fitting. /adair/ Shelli Kincaid [facility] Signed: 12/15/2023 14:24 RUFUS NEGRETE [facility]
--- OUTSIDE RECORDS SUMMARY | 2023-12-18 08:14 | XMS_ITS | Encounter Summary ---
Author Name [facility] [place] Address [address] [place] [address] Care Team Providers Care Respiratory Care Program Director Name Role Phone MAXIMINO SCOTT Primary Care [...] Member ID Insurance Provider's Telephone Number Policy Sanfodr's Name Patient's Relationship to Policy Sanford [facility] VISION VISION SPECT ERA VISIO N PLAN Jun 12, 2010 [id number] YUNIEL SUNSHINE PATIENT Selected Encounter This section includes the information on record at [place] for the Encounter. Date/Time Encounter Type Encounter Description Reason Pro vider Source Dec 18, 2023 01:14 PM Outpatient Encounter ADMIN PAT ACTIVTIES (MASNONCT) IHE Encounter Template Text not used by [place] Plan of Treatment: Future Appointments (+ 6 months) and Future Tests (+/- 45 days) The Plan of Treatment section includes future care activities for the patient from all [place] treatmentfacilities. This section includes future appointments and future orders which are active, pending or scheduled. Future Appointments This section includes appointments that were scheduled to occur 6 months from the date of the Encounter, up to a maximum of 20 appointments. The data comes from all [place] treatment facilities. Appointment Date/Time Appointment Type Appointme nt Facility Name Dec 23, 2023 03:00 PM AMBULATORY [facility] [place] [facility] [place] [facility] Jan 16, 2024 02:00 PM [facility]BULATORY - [facility] Jan 16, 2024 02:01 PM AM[place]UL[place]ORY [place] [facility] Jan 21, 2024 02:30 PM [facility] [place]IC[place] [facility] Feb 03, 2024 03:00 PM [facility]UL[facility]ORY [facility] Feb 24, 2024 03:20 PM [facility]UL[facility]ORY [facility] Mar 23, 2024 03:20 PM [facility] Apr 20, 2024 03:20 PM [facility] May 18, 2024 03:20 PM [facility]ORY [facility] Jun 15, 2024 03:20 PM [facility] [place] [facility] Social History: Smoking Status (Most current) and Tobacco Use (All prior to encounter date) This section includes the most current, and the historical, smoking and tobacco- related health factors from the [place] facility where the Encounter took place. Current Smoking Status This section includes the most current smoking, or tobacco-related health factor, from the [place] facility where the Encounter took place. Date/Time Current Smoking Status Comment Facil ity Mar 25, 2022 03:30 PM VA-TOBACCO NEVER USED [place] [facility] Tobacco Use History This section includes a history of the smoking, or tobacco-related health factors, that were collected on or before the date of the Encounter. The data comes from the [place] facility where the Encounter took place. Date/Time Smoking Status/Tobacco Use Comment F acility Apr 11, 2021 09:30 AM VA-TOBACCO NEVER USED [place] [facility] May 09, 2020 10:30 AM VA-TOBACCO FORMER USER [facility] May 09, 2020 10:30 AM VA-TOBACCO NEVER USED [place] [facility] May 09, 2020 10:30 AM VA-TOBACCO QUIT 1 TO < 5 YRS [facility] [place] May 17, 2019 09:23 AM VA-TOBACCO NEVER USED [place] [facility] May 09, 2008 01:55 PM LIFETIME NON-USER OF TOBACCO [facility] Jul 30, 2007 10:17 AM LIFETIME NON-USER OF TOBACCO [facility] Oct 21, 2005 03:05 PM LIFETIME NON-TOBACCO USER [place] [facility] Aug 23, 2004 03:41 PM LIFETIME NON-TOBACCO USER [place] [facility] Jun 11, 2004 10:38 AM CURRENT NON-TOBACCO USER-HX OF [facility] [place] [facility] Jul 07, 2002 02:29 PM LIFETIME NON-TOBACCO USER [place] [facility] Feb 04, 2001 11:43 AM LIFETIME NON-TOBACCO USER [facility] Encounter Notes: All associated encounter notes This section contains the clinical notes associated to the Encounter. Date/Time Encounter Note(s) Provider Source Dec 18, 2023 01:14 PM GENERAL MEDICINE N OTE: LOCAL TITLE: General Note PB STANDARD TITLE: GENERAL MEDICINE NOTE DATE OF NOTE: DEC 18, 2023@13:14 ENTRY DATE: DEC 18, 2023@13:14:44 AUTHOR: GERMÁN DICKSON EXP COSIGNER: URGENCY: STATUS: COMPLETED Received hearing aid devices, certified in [place]. [place] has pending appt for fitting /es/ GERMÁN DICKSON Telehealth Clinical Customer Response Representative Signed: 12/18/2023 13:15 GERMÁN DICKSON [facility]
--- OUTSIDE RECORDS SUMMARY | 2023-12-23 10:00 | XMS_ITS | Encounter Summary ---
Author Name [facility] [place] Address [address] [place] [id number] Care Team Providers Care Cash Room Clerk Name Role Phone MAXIMINO SCOTT Primary Care [...] Sanford's Name Patient's Relationship to Policy Sanford [facility] VISION VISION SPECT ERA VISIO N PLAN Jun 12, 2010 [id number] 65 YUNIEL SUNSHINE PATIENT Selected Encounter This section includes the information on record at [place] for the Encounter. Date/Time Encounter Type Encounter Description Reason Provider Source Dec 23, 2023 03:00 PM CHIROPRACT MANJ 3-4 [facility] ICD-10-CM M99.02 Segmental and somatic dysfunction of thoracic region [facility] Encounter Template Text not used by [place] Assessments - Encounter Diagnoses This section includes the primary and secondary diagnoses documented for the Encounter. Date/Time Primary/Secondary Diagnosis Diagnosis Name Provider Source Dec 23, 2023 03:03 PM PRIMARY Segmental and somatic dysfunction of thoracic region [facility] Dec 23, 2023 03:03 PM SECONDARY Other intervertebral disc degeneration, lumbosacral region [facility] Dec 23, 2023 03:03 PM SECONDARY Pain in thoracic spine [facility] [place] [facility] Dec 23, 2023 03:03 PM SECONDARY Segmental and somatic dysfunction of lumbar region [facility] [place] [facility] Dec 23, 2023 03:03 PM SECONDARY Segmental and somatic dysfunction of pelvic region [facility] Dec 23, 2023 03:03 PM SECONDARY Spondylolisthesis, lumbar region [facility] Plan of Treatment: Future Appointments (+ 6 months) and Future Tests (+/- 45 days) The Plan of Treatment section includes future care activities for the patient from all [place] [facility]. This section includes future appointments and future orders which are active, pending or scheduled. Future Appointments This section includes appointments that were scheduled to occur 6 months from the date of the Encounter, up to a maximum of 20 appointments. The data comes from all [place] treatment facilities. Appointment Date/Time Appointment Type Appointme nt Facility Name Jan 16, 2024 02:00 PM AMBULATORY - MEDICINE [facility] Jan 16, 2024 02:01 PM AMBULATORY - MEDICINE [place] [facility] Jan 21, 2024 02:30 PM AMBULATORY - MEDICINE [facility] Feb 03, 2024 03:00 PM AMBULATORY - MEDICINE [facility] Feb 24, 2024 03:20 PM AMBULATORY - MEDICINE [facility] Mar 23, 2024 03:20 PM AMBULATORY - MEDICINE [facility] Apr 20, 2024 03:20 PM AMBULATORY - MEDICINE [facility] May 18, 2024 03:20 PM AMBULATORY - MEDICINE [facility] Jun 15, 2024 03:20 PM AMBULATORY - MEDICINE [facility] Vital Signs: All taken on the encounter date This section contains inpatient and outpatient Vital Signs collected on the date of the Encounter. Date/Time Temperature Pulse Blood Pressure Respiratory Rate SP02 Pain Height Weight Body Mass Index Source Dec 23, 2023 03:00 PM 98.2 81 113/73 [facility] Social History: Smoking Status (Most current) and Tobacco Use (All prior to encounter date) This section includes the most current, and the historical, smoking and tobacco- related health factors from the [place] facility where the Encounter took place. Current Smoking Status This section includes the most current smoking, or tobacco-related health factor, from the [place] facility where the Encounter took place. Date/Time Current Smoking Status Comment Facil ity Mar 25, 2022 03:30 PM VA-TOBACCO NEVER USED [place] [facility] Tobacco Use History This section includes a history of the smoking, or tobacco-related health factors, that were collected on or before the date of the Encounter. The data comes from the [place] facility where the Encounter took place. Date/Time Smoking Status/Tobacco Use Comment F acility Apr 11, 2021 09:30 AM VA-TOBACCO NEVER USED [place] [facility] May 09, 2020 10:30 AM VA-TOBACCO FORMER USER [place] [facility] May 09, 2020 10:30 AM VA-TOBACCO NEVER USED [place] [facility] May 09, 2020 10:30 AM VA-TOBACCO QUIT 1 TO < 5 YRS [place] May 17, 2019 09:23 AM VA-TOBACCO NEVER USED [place] [facility] May 09, 2008 01:55 PM LIFETIME NON-USER OF TOBACCO [place] [facility] Jul 30, 2007 10:17 AM LIFETIME NON-USER OF TOBACCO [facility] [place] Oct 21, 2005 03:05 PM LIFETIME NON-TOBACCO USER [place] [facility] Aug 23, 2004 03:41 PM LIFETIME NON-TOBACCO USER [place] [facility] Jun 11, 2004 10:38 AM CURRENT NON-TOBACCO USER-HX OF [facility] [place] [facility] Jul 07, 2002 02:29 PM LIFETIME NON-TOBACCO USER [place] [facility] Feb 04, 2001 11:43 AM LIFETIME NON-TOBACCO USER [facility] [place] [facility] Radiology Reports: +/- 30 days of the encounter Radiology Reports For cases when an order for radiology services may have been completed prior to the date of the Encounter, the report list includes the Radiology Reports that were completed up to 30 days before dateof the Encounter. For cases when an order for radiology services may have been completed after the date of the Encounter, the report list also includes the Radiology Reports that were completed up to30 days after date of the Encounter. The data comes from all [place] treatment facilities. Date/Time Radiology Report Provider Source Jan 21, 2024 03:59 PM NASAL BONES MIN 3 VIEWS: CHRISTINE SUNSHINE [phone] -[phone] M Exm Date: JAN 21, 2024@15:59 Req Phys: MAXIMINO SCOTT Loc: PB-MACRINA PACT VINNIE CALDERON (Req'g Img Loc: PB-XRAY [place] Service: [place] [address] (Case [id number] COMPLETE) NASAL BONES MIN 3 VIEWS (RAD Detailed) CPT:94551 Reason for Study: Nose pain Clinical History: Trauma to nose Report Status: Verified Date Reported: JAN 21, 2024 Date Verified: JAN 21, 2024 Scrap Iron Cutter E-Sig: Report: Nasal bones 3 views. Nasal bone and maxillary spine appears intact. There is no evidence of a fracture. Impression: No evidence of a fracture Primary Interpreting Staff: CLAIR GARIBAY, RADIOLOGIST (Scrap Iron Cutter, no e-sig) /CLAIR Grimm [facility] Encounter Notes: All associated encounter notes This section contains the clinical notes associated to the Encounter. Date/Time Encounter Note(s) Provider Source Dec 23, 2023 02:48 PM CHIROPRACTIC CONSU LT: [facility] TITLE: CHIROPRACTIC INITIAL ASSESSMENT CONSULT STANDARD TITLE: CHIROPRACTIC CONSULT DATE OF NOTE: DEC 23, 2023@14:48 ENTRY DATE: DEC 23, 2023@14:49:25 AUTHOR: [facility] COSIGNER: URGENCY: STATUS: COMPLETED INITIAL CHIROPRACTOR ASSESSMENT The is a 48 year old MALE being seen in the Chiropractic clinic for the first time. The Dorr reports today with a chief complaint of back pain. Patient's language preference for health information is [place]. SUBJECTIVE: Onset of Event: The is returning to the chiropractic clinic due to the redevelopment of lower back pain. He states the lower back pain is similar to the episode for which he sought treatment last year. He reports doing well after being released from active treatment for 6-8 months. For the past 2-3 months the has noticed gradual worsening achy tightness at the L/S junction, which varies in intensity. Today, the rates his pain level as a 2-3/10, while yesterday his pain level as 4-5/10 due to the changing weather patterns. PAST MEDICAL HISTORY: see problem list SOCIO-ECONOMIC HISTORY: Tobacco: No Prior Tobacco Use Status Available Alcohol: ____ ALLERGIES/ADVERSE REACTIONS: Patient has answered NKA VITAL SIGNS Pulse: 81 (12/23/2023 15:00) Blood Pressure: 113/73 (12/23/2023 15:00) Respiratory Rate: 16 (10/21/2023 15:23) Temperature: 98.2 F [36.8 C] (12/23/2023 15:00) Weight: 227.5 lb [103.19 kg] (10/21/2023 15:23) Height: 70 in [177.8 cm] (10/21/2023 15:23) Pain: 3 (04/17/2023 10:03) OBJECTIVE: MOVEMENT/POSTURE: The Dorr ambulates without issue. SEGMENTAL DYSFUNCTION: Joint dysfunction was noted at T12, L5, and Left SI joint. PALPATION: Bone landmarks tender to palpation: T12, L5, and the Left PSIS. LUMBAR ACTIVE RANGE OF MOTION: Mild restriction in all planes of motion. REVIEW OF DIAGNOSTIC IMAGING: SPINE LUMBOSACRAL 2 OR 3 VIEWS Reason for Study: Low back pain. Needed for upcoming chiro appt Date Reported: OCT 14, 2022 Report: Lumbar spine 3 views. There appears to be 6 functional lumbar vertebra with transitional S1. There is spina bifida occulta L6 and S1. There is a grade 1 spondylolisthesis L6 on S1 with possible spondylolysis of the L6 articulating facets. There are degenerative changes. No evidence acute fracture or dislocation. Slight scoliosis. Impression: 1. 6 functional lumbar vertebra 2. Grade 1 spondylolisthesis L6 on S1 with possible spondylolysis of the L6 articulating facets 2. Degenerative arthritis 3. 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 Intersegment joint dysfunction of the lumbar spine and pelvis. PLAN: We will treat The Dorr once every four weeks for six treatments. Prognosis: Fair Today's treatment of the consisted of chiropractic spinal adjustment of the thoracic spine (prone) using diversified and adjustment of the lumbar spine (prone) and the pelvis (prone) using Peng technique. The treatment was well tolerated by the . GOALS: The goals of treatment include: 1) The reduction of symptomatology. 2) Instructing the in home exercises to improve core strength and flexibility. /adair/ [facility] Signed: 12/23/2023 15:48 [facility]
--- OUTSIDE RECORDS SUMMARY | 2024-01-16 09:01 | XMS_ITS | Encounter Summary ---
Author Name [facility] [place] Organization [place] Address [address] [place] [address] Care Team Providers Care Acetylene Gas Compressor Name Role Phone MAXIMINO SCOTT Primary Care [...] Sanford's Name Patient's Relationship to Policy Sanford [facility] VISION SPECT ERA VISIO N PLAN Jun 12, 2010 [id number] JONGYUNIEL CERVANTES PATIENT Selected Encounter This section includes the information on record at [place] for the Encounter. Date/Time Encounter Type Encounter Description Reason Provider Source Jan 16, 2024 02:01 PM CONFORMITY EVALUATION AUDIOLOGY ICD-10-CM Z46.1 Encounter for fitting and adjustment of hearing aid SONY NEGRETE RA [facility] Encounter Template Text not used by [place] Assessments - Encounter Diagnoses This section includes the primary and secondary diagnoses documented for the Encounter. Date/Time Primary/Secondary Diagnosis Diagnosis Name Provider Source Jan 16, 2024 02:15 PM PRIMARY Encounter for fitting and adjustment of hearing aid DARLENE NEGRETE A A POPLAR BLUFF [facility] Jan 16, 2024 02:15 PM SECONDARY Tinnitus, unspecified ear SONY NEGRETER A A POPLAR BLUFF [facility] Jan 16, 2024 02:15 PM SECONDARY Unspecified hearing loss, unspecified ear GRAVES,DARLENE A A POPLAR [place]UFF [place] [facility] Plan of Treatment: Future Appointments (+ 6 months) and Future Tests (+/- 45 days) The Plan of Treatment section includes future care activities for the patient [facility] [place] [facility] This section includes future appointments and future orders which are active, pending or scheduled. Future Appointments This section includes appointments that were scheduled to occur 6 months from the date of the Encounter, up to a maximum of 20 appointments. The data comes from all [facility]. Appointment Date/Time Appointment Type Appointme nt Facility Name Jan 21, 2024 02:30 PM AMBULATORY - MEDICINE [facility] Feb 03, 2024 03:00 PM AMBULATORY - MEDICINE [facility] Feb 24, 2024 03:20 PM AMBULATORY - MEDICINE [facility] Mar 23, 2024 03:20 PM AMBULATORY - MEDICINE [facility] Apr 20, 2024 03:20 PM AMBULATORY - MEDICINE [facility] May 18, 2024 03:20 PM AMBULATORY - MEDICINE [facility] Jun 15, 2024 03:20 PM AMBULATORY - MEDICINE [facility] Radiology Reports: +/- 30 days of [...] the Encounter. The data comes from all [facility]. Date/Time Radiology Report Provider Source Jan 21, 2024 03:59 PM NASAL BONES MIN 3 VIEWS: CHRISTINE SUNSHINE [id number] -[id number] M Exm Date: JAN 21, 2024@15:59 Req Phys: MAXIMINO SCOTT Loc: PB-MACRINA PACT VINNIE CALDERON (Req'g Img Loc: PB-XRAY [place] Service: [place] [address] (Case [id number] COMPLETE) NASAL BONES MIN 3 VIEWS (RAD Detailed) CPT:85619 Reason for Study: Nose pain Clinical History: Trauma to nose Report Status: Verified Date Reported: JAN 21, 2024 Date Verified: JAN 21, 2024 Card Cutter E-Sig: Report: Nasal bones 3 views. Nasal bone and maxillary spine appears intact. There is no evidence of a fracture. Impression: No evidence of a fracture Primary Interpreting Staff: CLAIR GARIBAY, RADIOLOGIST (Card Cutter, no e-sig) /CLAIR Grimm [facility] Encounter Notes: All associated encounter notes This section contains the clinical notes associated to the Encounter. Date/Time Encounter Note(s) Provider Source Jan 16, 2024 07:46 AM AUDIOLOGY NOTE: LOCAL TITLE: HEARING CLINIC PB STANDARD TITLE: AUDIOLOGY NOTE DATE OF NOTE: JAN 16, 2024@07:46 ENTRY DATE: JAN 16, 2024@07:46:52 AUTHOR: RUFUS NEGRETE COSIGNER: URGENCY: STATUS: COMPLETED Diagnosis: Sensorineural Hearing Loss, Bilateral and Tinnitus, Bilateral Treatment: Hearing Aid Fitting Time spent with Zearing: 60 minutes Zearing seen for a hearing aid fitting via Audio Telehealth and verbally consented to the Telehealth modality. Multi-factor personally identifiable information of the was obtained verbally (full name and date of ). accompanied by: none Patient site: [facility] SUBJECTIVE: Patient is here for the issue of new hearing aids. Zearing is experienced with amplification. Patient would like to mail 2020 hearing aid for battery replacement. He is requesting new materials assistant for 2020 devices. HEARING DEVICES: Zearing was fit with the following hearing devices and accessories today: 01/16/24 PHONAK AUDEO L90-R HILDA L [id number] 01/14/27 06/13/24 01/16/24 PHONAK AUDEO L90-R HILDA R [id number] 01/14/27 06/13/24 - M MICROMATIC HONE OPERATOR 5.0 - SIZE 1 - VENTED DOME 4.0 - SMALL - CERUSTOP - NO RETENTION TAILS Phone Connectivity: streaming and jose use BACK UP HEARING DEVICES 07/17/20 PHONAK AUDEO P90-R HILDA R [id number] 07/17/20 PHONAK AUDEO P90-R HILDA L [id number] - M MICROMATIC HONE OPERATOR 4.0 - SIZE 1 - SMALL VENTED DOME 4.0 - CERUSHIELD DISK - NO RETENTION TAILS OBJECTIVE/ASSESSMENT: Otoscopy was performed by collaboration of telehealth clinical build technician and provider via telehealth technology/video otoscope which revealed: Right: clear canal, retracted ear drum/surgical ear Left: unremarkable Probe-Microphone Measures: Conformity evaluation was performed using real ear measures with NAL-NL2 ([employer]) targets. Maximum output was within the predicted upper limit of comfort. Hearing aids set to 90% target gain per patient subjective listening preference. Feedback manager private completed. Familiarized patient with sound indicators (low battery signal, volume control, etc.). Device(s) issued in Remote Deployment Technician System. Physical Fit/Comfort: Good per patient. Sound Quality: Good per patient. Settings: - Programs: Automatic - Push button: enabled - Volume control: short press - Program change: medium press - On/Off device: long press Phone Connectivity: - streaming and jose use DIRECT PATIENT EDUCATION-30 minutes Zearing educated on: - Use of batteries/materials assistant - Hearing aid care and maintenance - Adjustment period/ importance of daily consistent use (8- 12hrs/day) - Realistic expectations - Effective communication strategies - Pet/child warning - Patient instructed not to wear devices in excessive noise - Installation and use of additional accessories - Ordering supplies through [facility] - Repair process - Trial period demonstrated how to: - Insert/remove hearing aid(s) - Adjust volume control/program switch - Change batteries/charge hearing aid(s) Zearing was provided: - Hearing aid manual - [place] form 2477b was counseled/educated on services provided today and is in agreement with the plan. Patient was given clinic phone number and encouraged to contact the clinic as needs arise. PLAN: 1. Mail 2020 right/left hearing aids for repair. Devices will be returned to patient direct through [facility]. Replacement COMBI materials assistant ordered to patient home address. 2. Patient is an experienced hearing aid user and did not wish to schedule a follow-up appointment at this time. IOI-WHALEY provided to patient for completion in one month. /adair/ Shelli Kincaid [facility] Signed: 01/16/2024 14:29 RUFUS NEGRETE [facility]
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
--- OUTSIDE RECORDS SUMMARY | 2024-02-03 10:00 | XMS_ITS | Encounter Summary ---
Author Name [facility] [place] Organization [place] Address [address] [place] [id number] Care Team Providers Care Polygraph Examiner Name Role Phone MAXIMINO SCOTT Primary Care [...] Sanford's Name Patient's Relationship to Policy Sanford [facility] VISION VISION SPECT ERA VISIO N PLAN Jun 12, 2010 [id number] 65 YUNIEL SUNSHINE PATIENT Selected Encounter This section includes the information on record at PA for the Encounter. Date/Time Encounter Type Encounter Description Reason Provider Source Feb 03, 2024 03:00 PM CHIROPRACT MANJ 3-4 [employer] STITCH[employer] ODD ICD-10-CM M99.02 Segmental and somatic dysfunction of thoracic region [facility] Encounter Template Text not used by [place] Assessments - Encounter Diagnoses This section includes the primary and secondary diagnoses documented for the Encounter. Date/Time Primary/Secondary Diagnosis Diagnosis Name Provider Source Feb 03, 2024 03:10 PM PRIMARY Segmental and somatic dysfunction of thoracic region [facility] Feb 03, 2024 03:10 PM SECONDARY Other intervertebral disc degeneration, lumbosacral region [facility] Feb 03, 2024 03:10 PM SECONDARY Pain in thoracic spine [facility] Feb 03, 2024 03:10 PM SECONDARY Segmental and somatic dysfunction of lumbar region [facility] Feb 03, 2024 03:10 PM SECONDARY Segmental and somatic dysfunction of pelvic region [facility] [place] [facility] Plan of Treatment: Future Appointments (+ 6 months) and Future Tests (+/- 45 days) The Plan of Treatment section includes future care activities for the patient from all [facility]. This section includes future appointments and future orders which are active, pending or scheduled. Future Appointments This section includes appointments that were scheduled to occur 6 months from the date of the Encounter, up to a maximum of 20 appointments. The data comes from all [place] treatment facilities. Appointment Date/Time Appointment Type Appointme nt Facility Name Feb 24, 2024 03:20 PM AMBULATORY - MEDICINE [facility] Mar 23, 2024 03:20 PM AMBULATORY - MEDICINE [facility] Apr 20, 2024 03:20 PM AMBULATORY - MEDICINE [facility] May 18, 2024 03:20 PM AMBULATORY - MEDICINE [facility] Jun 15, 2024 03:20 PM AMBULATORY - MEDICINE [facility] Jul 20, 2024 03:20 PM AMBULATORY - MEDICINE [facility] Vital Signs: All taken on the encounter date This section contains inpatient and outpatient Vital Signs collected on the date of the Encounter. Date/Time Temperature Pulse Blood Pressure Respiratory Rate SP02 Pain Height Weight Body Mass Index Source Feb 03, 2024 03:00 PM 98.3 87 132/92 [facility] Social History: Smoking Status (Most current) and Tobacco Use (All prior to encounter date) This section includes the most current, and the historical, smoking and tobacco- related health factors from the [place] facility where the Encounter took place. Current Smoking Status This section includes the most current smoking, or tobacco-related health factor, from the [place] facility where the Encounter took place. Date/Time Current Smoking Status Yulissa rose Mar 25, 2022 03:30 PM VA-TOBACCO NEVER USED [facility] Tobacco Use History This section includes a history of the smoking, or tobacco-related health factors, that were collected on or before the date of the Encounter. The data comes from the [place] facility where the Encounter took place. Date/Time Smoking Status/Tobacco Use Comment F acility Apr 11, 2021 09:30 AM VA-TOBACCO NEVER USED [place] [facility] May 09, 2020 10:30 AM VA-TOBACCO FORMER USER [facility] [facility] May 09, 2020 10:30 AM VA-TOBACCO NEVER USED [place] [facility] May 09, 2020 10:30 AM VA-TOBACCO QUIT 1 TO < [address] [facility] May 17, 2019 09:23 AM VA-TOBACCO NEVER USED [place] [facility] May 09, 2008 01:55 PM LIFETIME NON-USER OF TOBACCO [facility] [facility] Jul 30, 2007 10:17 AM LIFETIME NON-USER OF TOBACCO [facility] Oct 21, 2005 03:05 PM LIFETIME NON-TOBACCO USER [facility] [facility] Aug 23, 2004 03:41 PM LIFETIME NON-TOBACCO USER [facility] [facility] Jun 11, 2004 10:38 AM CURRENT NON-TOBACCO USER-HX OF U SE [facility] [facility] Jul 07, 2002 02:29 PM LIFETIME NON-TOBACCO USER [place] [facility] Feb 04, 2001 11:43 AM LIFETIME NON-TOBACCO USER [facility] [facility] Radiology Reports: +/- 30 days [...] the Encounter. The data comes from all [place] treatment facilities. Date/Time Radiology Report Provider Source Jan 21, 2024 03:59 PM NASAL BONES MIN 3 VIEWS: CHRISTINE SUNSHINE [id number] -1975 M Exm Date: JAN 21, 2024@15:59 Req Phys: MAXIMINO SCOTT Loc: PB-MACRINA PACT VINNIE CALDERON (Req'g Img Loc: PB-XRAY [place] Service: [place] [address] (Case [id number] COMPLETE) NASAL BONES MIN 3 VIEWS (RAD Detailed) CPT:03276 Reason for Study: Nose pain Clinical History: Trauma to nose Report Status: Verified Date Reported: JAN 21, 2024 Date Verified: JAN 21, 2024 Bunker Worker E-Sig: Report: Nasal bones 3 views. Nasal bone and maxillary spine appears intact. There is no evidence of a fracture. Impression: No evidence of a fracture Primary Interpreting Staff: CLAIR GARIBAY, RADIOLOGIST (Bunker Worker, no e-sig) /CLAIR Grimm [facility] Encounter Notes: All associated encounter notes This section contains the clinical notes associated to the Encounter. Date/Time Encounter Note(s) Provider Source Feb 03, 2024 03:00 PM CHIROPRACTIC NOTE: LOCAL TITLE: CHIROPRACTIC FOLLOW UP NOTE PB STANDARD TITLE: CHIROPRACTIC NOTE DATE OF NOTE: FEB 03, 2024@15:00 ENTRY DATE: FEB 03, 2024@15:00:29 AUTHOR: [facility] COSIGNER: URGENCY: STATUS: COMPLETED CHIROPRACTIC FOLLOW-UP VISIT Patient's language preference for health information: Armenian Other Communication Methods Needed: SUBJECTIVE: The is a 48 year old MALE being seen in the Chiropractic clinic for follow-up visit. The states his initial adjustment helped somewhat, but the lower back pain gradually redeveloped and continues today. He describes his lower back stiff with sitting and sharp stabbing pain with movement such as rolling over in bed. Today, the rates his pain level as a 2-3/10, while turning over in bed the pain becomes a 6-7/10. PAST MEDICAL HISTORY: see problem list SOCIO-ECONOMIC HISTORY: Tobacco: No Prior Tobacco Use Status Available Alcohol: ____ ALLERGIES/ADVERSE REACTIONS: Patient has answered NKA OBJECTIVE: MOVEMENT/POSTURE: The [place] ambulates without issue. 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 Intersegment joint dysfunction of the lumbar spine and pelvis. PLAN: This is the first follow up treatment for the of a planned six treatments. We will treat The once every four weeks for six treatments. [...] and flexibility. /adair/ [facility] Signed: 02/03/2024 15:10 [facility]
--- OUTSIDE RECORDS SUMMARY | 2024-02-06 11:01 | XMS_ITS | Encounter Summary ---
Author Name Department of [place]a [place] Organization [place] Address [address] [place] [address] Care Team Providers Care Rn Clinician Name Role Phone MAXIMINO SCOTT Primary Care [...] Sanford's Name Patient's Relationship to Policy Sanford [facility] VISION VISION SPECT ERA VISIO N PLAN Jun 12, 2010 [id number] 63 YUNIEL SUNSHINE PATIENT Selected Encounter This section includes the information on record at [place] for the Encounter. Date/Time Encounter Type Encounter Description Reason Pro vider Source Feb 06, 2024 04:01 PM Outpatient Encounter ADMIN PAT ACTIVTIES (MASNONCT) IHE Encounter Template Text not used by [place] Plan of Treatment: Future Appointments (+ 6 months) and Future Tests (+/- 45 days) The Plan of Treatment section includes future care activities for the patient from all [place] treatmentfacilities. This section includes future appointments and future orders which are active, pending or scheduled. Future Appointments This section includes appointments that were scheduled to occur 6 months from the date of the Encounter, up to a maximum of 20 appointments. The data comes from all [place] treatment facilities. Appointment Date/Time Appointment Type Appointme nt Facility Name Feb 24, 2024 03:20 PM AMBULATORY - MEDICINE [facility] Mar 23, 2024 03:20 PM AMBULATORY - MEDICINE [facility] Apr 20, 2024 03:20 PM AMBULATORY - MEDICINE [facility] May 18, 2024 03:20 PM AMBULATORY - MEDICINE [facility] Jun 15, 2024 03:20 PM AMBULATORY - MEDICINE [facility] Jul 20, 2024 03:20 PM AMBULATORY - MEDICINE [facility] Aug 05, 2024 02:30 PM AMBULATORY - MEDICINE [facility] Social History: Smoking Status (Most current) and Tobacco Use (All prior to encounter date) This section includes the most current, and the historical, smoking and tobacco- related health factors from the [place] facility where the Encounter took place. Current Smoking Status This section includes the most current smoking, or tobacco-related health factor, from the [place] facility where the Encounter took place. Date/Time Current Smoking Status Comment Facil ity Mar 25, 2022 03:30 PM VA-TOBACCO NEVER USED [place] [facility] Tobacco Use History This section includes a history of the smoking, or tobacco-related health factors, that were collected on or before the date of the Encounter. The data comes from the [place] facility where the Encounter took place. Date/Time Smoking Status/Tobacco Use Comment F acility Apr 11, 2021 09:30 AM VA-TOBACCO NEVER USED [facility] May 09, 2020 10:30 AM VA-TOBACCO FORMER USER [facility] May 09, 2020 10:30 AM VA-TOBACCO NEVER USED [facility] May 09, 2020 10:30 AM VA-TOBACCO QUIT 1 TO < 5 YRS [facility] May 17, 2019 09:23 AM VA-TOBACCO NEVER USED [facility] May 09, 2008 01:55 PM LIFETIME NON-USER OF TOBACCO [facility] Jul 30, 2007 10:17 AM LIFETIME NON-USER OF TOBACCO [facility] Oct 21, 2005 03:05 PM LIFETIME NON-TOBACCO USER [facility] Aug 23, 2004 03:41 PM LIFETIME NON-TOBACCO USER [facility] Jun 11, 2004 10:38 AM CURRENT NON-TOBACCO USER-HX OF U SE [facility] Jul 07, 2002 02:29 PM LIFETIME NON-TOBACCO USER [facility] Feb 04, 2001 11:43 AM LIFETIME NON-TOBACCO USER [facility] Radiology Reports: +/- 30 days of the [...] the Encounter. The data comes from all [place] treatment facilities. Date/Time Radiology Report Provider Source Jan 21, 2024 03:59 PM NASAL BONES MIN 3 VIEWS: CHRISTINE SUNSHINE [id number] -1975 M Exm Date: JAN 21, 2024@15:59 Req Phys: MAXIMINO SCOTT Loc: PB-MACRINA PACT [facility] (Req'g Img Loc: PB-XRAY [place] Service: [place] [address] (Case [id number] COMPLETE) NASAL BONES MIN 3 VIEWS (RAD Detailed) CPT:93264 Reason for Study: Nose pain Clinical History: Trauma to nose Report Status: Verified Date Reported: JAN 21, 2024 Date Verified: JAN 21, 2024 Returned Case Inspector E-Sig: Report: Nasal bones 3 views. Nasal bone and maxillary spine appears intact. There is no evidence of a fracture. Impression: No evidence of a fracture Primary Interpreting Staff: CLAIR GARIBAY, RADIOLOGIST (Returned Case Inspector, no e-sig) /[facility] CLAIR GARIBAY [facility] Encounter Notes: All associated encounter notes This section contains the clinical notes associated to the Encounter. Date/Time Encounter Note(s) Provider Source Feb 06, 2024 04:01 PM GENERAL MEDICINE N OTE: LOCAL TITLE: General Note PB STANDARD TITLE: GENERAL MEDICINE NOTE DATE OF NOTE: FEB 06, 2024@16:01 ENTRY DATE: FEB 06, 2024@16:01:06 AUTHOR: GERMÁN DICKSON EXP COSIGNER: URGENCY: STATUS: COMPLETED Brock[place] left message with PACT team RN regarding hearing aid manager hvac. Tech called and Brocket was inquiring about manager hvac that had been ordered. States he didn't receive it, when I pulled up the tracking information and told him it was delivered to his mailbox he then spoke with spouse and they found the manager hvac and accessories /es/ GERMÁN DICKSON Telehealth Clinical Manager Rental Signed: 02/06/2024 16:02 GERMÁN DICKSON [facility]
--- OUTSIDE RECORDS SUMMARY | 2024-02-24 10:20 | XMS_ITS | Encounter Summary ---
Author Name Department of [place] Organization [place] Address [address] [place] [address] Care Team Providers Care Stove Bottom Worker Name Role Phone MAXIMINO SCOTT Primary Care [...] Sanford's Name Patient's Relationship to Policy Sanford [facility] VISION VISION SPECT ERA VISIO N PLAN Jun 12, 2010 [id number] 63 YUNIEL SUNSHINE PATIENT Selected Encounter This section includes the information on record at [place] for the Encounter. Date/Time Encounter Type Encounter Description Reason Provider Source Feb 24, 2024 03:20 PM CHIROPRACT MANJ 3-4 [employer] ICD-10-CM M99.02 Segmental and somatic dysfunction of thoracic region [facility] Encounter Template Text not used by [place] Assessments - Encounter Diagnoses This section includes the primary and secondary diagnoses documented for the Encounter. Date/Time Primary/Secondary Diagnosis Diagnosis Name Provider Source Feb 24, 2024 03:46 PM PRIMARY Segmental and somatic dysfunction of thoracic region [facility] Feb 24, 2024 03:46 PM SECONDARY Pain in thoracic spine [facility] Feb 24, 2024 03:46 PM SECONDARY Segmental and somatic dysfunction of lumbar region [facility] [place] [facility] Feb 24, 2024 03:46 PM SECONDARY Segmental and somatic dysfunction of pelvic region [facility] [place] [facility] Feb 24, 2024 03:46 PM SECONDARY Spondyls w/o myelopathy or radiculopathy, lumbosacr region [facility] Plan of Treatment: Future Appointments (+ 6 months) and Future Tests (+/- 45 days) The Plan of Treatment section includes future care activities for the patient from all [place] treatmentfacilities. This section includes future appointments and future orders which are active, pending or scheduled. Future Appointments This section includes appointments that were scheduled to occur 6 months from the date of the Encounter, up to a maximum of 20 appointments. The data comes from all [place] treatment facilities. Appointment Date/Time Appointment Type Appointme nt Facility Name Mar 23, 2024 03:20 PM AMBULATORY - MEDICINE [facility] Apr 20, 2024 03:20 PM AMBULATORY - MEDICINE [facility] May 18, 2024 03:20 PM AMBULATORY - MEDICINE [facility] Jun 15, 2024 03:20 PM AMBULATORY - MEDICINE [facility] Jul 20, 2024 03:20 PM AMBULATORY - MEDICINE [facility] Aug 05, 2024 02:30 PM AMBULATORY - MEDICINE [facility] Aug 17, 2024 03:20 PM AMBULATORY - MEDICINE [facility] Aug 19, 2024 03:30 PM [facility] Vital Signs: All taken on the encounter date This section contains inpatient and outpatient Vital Signs collected on the date of the Encounter. Date/Time Temperature Pulse Blood Pressure Respiratory Rate SP02 Pain Height Weight Body Mass Index Source Feb 24, 2024 03:20 PM 97.9 90 124/88 [facility] Social History: Smoking Status (Most current) and [...] LIFETIME NON-TOBACCO USER [place] [facility] Encounter Notes: All associated encounter notes This section contains the clinical notes associated to the Encounter. Date/Time Encounter Note(s) Provider Source Feb 24, 2024 03:32 PM CHIROPRACTIC NOTE: LOCAL TITLE: CHIROPRACTIC FOLLOW UP NOTE PB STANDARD TITLE: CHIROPRACTIC NOTE DATE OF NOTE: FEB 24, 2024@15:32 ENTRY DATE: FEB 24, 2024@15:32:43 AUTHOR: [facility] SEALS COSIGNER: URGENCY: STATUS: COMPLETED CHIROPRACTIC FOLLOW-UP VISIT Patient's language preference for health information: Yi Other Communication Methods Needed: SUBJECTIVE: The [place] is a 49 year old MALE being seen in the Chiropractic clinic for follow-up visit. The [place] describes his back as feeling okay, with occasional twinges of pain since his initial treatment. He states he struggles to sleep due to the lower back pain. Today, the rates his pain level as a 2/10, while turning over in bed the pain becomes a 8/10. PAST MEDICAL HISTORY: see problem list SOCIO-ECONOMIC HISTORY: Tobacco: No Prior Tobacco Use Status Available Alcohol: ____ ALLERGIES/ADVERSE REACTIONS: Patient has answered NKA OBJECTIVE: MOVEMENT/POSTURE: The [place] ambulates without issue. 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 Intersegment joint dysfunction of the lumbar spine and pelvis. PLAN: This is the second follow up treatment for the of a [...] and flexibility. /adair/ [facility] Signed: 02/24/2024 15:44 [facility]
--- OUTSIDE RECORDS SUMMARY | 2024-03-23 10:20 | XMS_ITS ---
Author Name [place] Organization [place] Address [address] [place] [id number] Care Team Providers Care Home Connect Lpn Name Role Phone MAXIMINO SCOTT Primary Care [...] Sanford's Name Patient's Relationship to Policy Sanford [facility] VISION VISION SPECT ERA VISIO N PLAN Jun 12, 2010 [id number] YUNIEL SUNSHINE PATIENT Selected Encounter This section includes the information on record at [place] for the Encounter. 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 Date/Time Primary/Secondary Diagnosis Diagnosis Name Provider Source Mar 23, 2024 03:50 PM PRIMARY Segmental and somatic dysfunction of thoracic region [facility] Mar 23, 2024 03:50 PM SECONDARY Pain in thoracic spine [facility] Mar 23, 2024 03:50 PM SECONDARY Segmental and somatic dysfunction of lumbar region [facility] Mar 23, 2024 03:50 PM SECONDARY Segmental and somatic dysfunction of pelvic region [facility] Mar 23, 2024 03:50 PM SECONDARY Spondylolisthesis, lumbar region [facility] Mar 23, 2024 03:50 PM SECONDARY Spondyls w/o myelopathy or radiculopathy, lumbosacr region [facility] Plan of Treatment: Future Appointments (+ 6 months) and Future Tests (+/- 45 days) The Plan of Treatment section includes future care activities for the patient from all [place] [facility]. This section includes future appointments and future orders which are active, pending or scheduled. Future Appointments This section includes appointments that were scheduled to occur 6 months from the date of the Encounter, up to a maximum of 20 appointments. The data comes from all [place] treatment facilities. Appointment Date/Time Appointment Type Appointme nt Facility Name Apr 20, 2024 03:20 PM AMBULATORY - MEDICINE [facility] May 18, 2024 03:20 PM AMBULATORY - MEDICINE [facility] Jun 15, 2024 03:20 PM AMBULATORY - MEDICINE [facility] Jul 20, 2024 03:20 PM AMBULATORY - MEDICINE [facility] Aug 05, 2024 02:30 PM AMBULATORY - MEDICINE [facility] Aug 17, 2024 03:20 PM AMBULATORY - MEDICINE [facility] Aug 19, 2024 03:30 PM AMBULATORY - MEDICINE [facility] September 14, 2024 03:20 PM AMBULATORY - MEDICINE [facility] Vital Signs: All taken on the encounter date This section contains inpatient and outpatient Vital Signs collected on the date of the Encounter. Date/Time Temperature Pulse Blood Pressure Respiratory Rate SP02 Pain Height Weight Body Mass Index Source Mar 23, 2024 03:20 PM 98 74 124/85 [facility] Social History: Smoking Status (Most current) and Tobacco Use (All prior to encounter date) This section includes the most current, and the historical, smoking and tobacco- related health factors from the [place] facility where the Encounter took place. Current Smoking Status This section includes the most current smoking, or tobacco-related health factor, from the [place] facility where the Encounter took place. Date/Time Current Smoking Status Comment Sandra rose Mar 25, 2022 03:30 PM VA-TOBACCO NEVER USED [place] [facility] Tobacco Use History This section includes a history of the smoking, or tobacco-related health factors, that were collected on or before the date of the Encounter. The data comes from the [place] facility where the Encounter took place. Date/Time [...] the Encounter. Date/Time Encounter Note(s) Provider Source Mar 23, 2024 03:35 PM CHIROPRACTIC NOTE: LOCAL TITLE: CHIROPRACTIC FOLLOW UP NOTE PB STANDARD TITLE: CHIROPRACTIC NOTE DATE OF NOTE: MAR 23, 2024@15:35 ENTRY DATE: MAR 23, 2024@15:35:45 AUTHOR: TADEO SEALS COSIGNER: URGENCY: STATUS: COMPLETED CHIROPRACTIC FOLLOW-UP VISIT Patient's language preference for health information: German Other Communication Methods Needed: SUBJECTIVE: The is a 49 year old MALE being seen in the Chiropractic clinic for follow-up visit. The [place] states his back pain has flared over the past month since his last treatment. Due to the back pain, the struggles to sleep. He states if he take muscle relaxers to help him sleep, he will oversleep and be late for work. Encouraged the to discuss with his PCP alternatives for muscles relaxers. Today, the rates his pain level as a 2-3/10, while turning over in bed the pain becomes a 5/10. PAST MEDICAL HISTORY: see problem list SOCIO-ECONOMIC HISTORY: Tobacco: No Prior Tobacco Use Status Available Alcohol: ____ ALLERGIES/ADVERSE REACTIONS: Patient has answered NKA OBJECTIVE: MOVEMENT/POSTURE: The ambulates without issue. 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 Intersegment joint dysfunction of the lumbar spine and pelvis. PLAN: This is the third follow up treatment for the of a planned six treatments. We will treat The [place] once every four weeks for six treatments. Discuss with the 's PCP his muscle relaxer concerns. Prognosis: Fair Today's treatment of the consisted of chiropractic spinal adjustment of the thoracic spine (prone) using diversified and adjustment of the lumbar spine (prone) and the pelvis (prone) using Peng technique. The treatment was well tolerated by the . GOALS: The goals of treatment include: 1) The reduction of symptomatology. 2) Instructing the in home exercises to improve core strength and flexibility. /daair/ [facility]ST[facility] Signed: 03/23/2024 15:49 Receipt Acknowledged By: 03/23/2024 18:38 /adair/ CHANDNI Almonte-SEBASTIEN Sibley D[facility]AS [facility] [place] [facility]
--- OUTSIDE RECORDS SUMMARY | 2024-04-20 10:20 | XMS_ITS | Encounter Summary ---
Author Name [facility] [place] [facility] [place] [facility] [place] Address [address] [place] [address] Care Team Providers Care White Metal Caster Name Role Phone MAXIMINO SCOTT Primary Care [...] Sanford's Name Patient's Relationship to Policy Sanford [facility] VISION VISION SPECT ERA VISIO N PLAN Jun 12, 2010 [id number] YUNIEL SUNSHINE PATIENT Selected Encounter This section includes the information on record at [place] for the Encounter. 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 Date/Time Primary/Secondary Diagnosis Diagnosis Name Provider Source Apr 20, 2024 03:24 PM PRIMARY Segmental and somatic dysfunction of thoracic region [facility] Apr 20, 2024 03:24 PM SECONDARY Pain in thoracic spine [facility] Apr 20, 2024 03:24 PM SECONDARY Segmental and somatic dysfunction of lumbar region [facility] Apr 20, 2024 03:24 PM SECONDARY Segmental and somatic dysfunction of pelvic region [facility] Apr 20, 2024 03:24 PM SECONDARY Spondyls w/o myelopathy or radiculopathy, lumbosacr region [facility] Plan of Treatment: Future Appointments (+ 6 months) and Future Tests (+/- 45 days) The Plan of Treatment section includes future care activities for the patient from all [place] treatmentfacilities. This section includes future appointments and future orders which are active, pending or scheduled. Future Appointments This section includes appointments that were scheduled to occur 6 months from the date of the Encounter, up to a maximum of 20 appointments. The data comes from all [place] treatment facilities. Appointment Date/Time Appointment Type Appointme nt Facility Name May 18, 2024 03:20 PM [facility] Jun 15, 2024 03:20 PM [facility] - [facility] Jul 20, 2024 03:20 PM [facility] Aug 05, 2024 02:30 PM [facility] Aug 17, 2024 03:20 PM [facility] Aug 19, 2024 03:30 PM [facility] September 14, 2024 03:20 PM [facility] - [facility] Oct 12, 2024 03:20 PM [facility] - [facility] Vital Signs: All taken on the encounter date This section contains inpatient and outpatient Vital Signs collected on the date of the Encounter. Date/Time Temperature Pulse Blood Pressure Respiratory Rate SP02 Pain Height Weight Body Mass Index Source Apr 20, 2024 03:20 PM 98.2 82 145/97 [facility] Social History: Smoking Status (Most current) and Tobacco Use (All prior to encounter date) This section includes the most current, and the historical, smoking and tobacco- related health factors from the [place] facility where the Encounter took place. Current Smoking Status This section includes the most current smoking, or tobacco-related health factor, from the [place] facility where the Encounter took place. Date/Time Current Smoking Status Comment Sandra ity Mar 25, 2022 03:30 PM VA-TOBACCO NEVER USED [place] [place] [place] [facility] Tobacco Use History This section includes a history of the smoking, or tobacco-related health factors, that were collected on or before the date of the Encounter. The data comes from the [place] facility where the Encounter took place. Date/Time [...] the Encounter. Date/Time Encounter Note(s) Provider Source Apr 20, 2024 03:14 PM CHIROPRACTIC NOTE: LOCAL TITLE: CHIROPRACTIC FOLLOW UP NOTE PB STANDARD TITLE: CHIROPRACTIC NOTE DATE OF NOTE: APR 20, 2024@15:14 ENTRY DATE: APR 20, 2024@15:14:54 AUTHOR: [facility] COSIGNER: URGENCY: STATUS: COMPLETED CHIROPRACTIC FOLLOW-UP VISIT Patient's language preference for health information: Slovak Other Communication Methods Needed: SUBJECTIVE: The Canton is a 49 year old MALE being seen in the Chiropractic clinic for follow-up visit. The [place]on describes his back as doing well, but felt mild pain following his last adjustment for a few days. Today, the rates his pain level as a 1-2/10. PAST MEDICAL HISTORY: see problem list SOCIO-ECONOMIC HISTORY: Tobacco: No Prior Tobacco Use Status Available Alcohol: ____ ALLERGIES/ADVERSE REACTIONS: Patient has answered NKA OBJECTIVE: MOVEMENT/POSTURE: The Canton ambulates without issue. 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 Intersegment joint dysfunction of the lumbar spine and pelvis. PLAN: This is the fourth follow up treatment for the of a planned six treatments. We will treat The Canton once every four weeks for six treatments. [...] and flexibility. /adair/ [facility] Signed: 04/20/2024 15:23 [facility]
--- OUTSIDE RECORDS SUMMARY | 2024-05-18 10:20 | XMS_ITS | Encounter Summary ---
Author Name [facility] [place] Address [address] [place] [id number] Care Team Providers Care Disability Liaison Officer Name Role Phone MAXIMINO SCOTT Primary Care [...] Relationship to Policy Sanford [facility] VISION VISION SPECT ERA VISIO N PLAN Jun 12, 2010 [id number] YUNIEL SUNSHINE PATIENT Selected Encounter This section includes the information on record at [place] for the Encounter. 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 Date/Time Primary/Secondary Diagnosis Diagnosis Name Provider Source May 18, 2024 03:13 PM PRIMARY Segmental and somatic dysfunction of thoracic region [facility] May 18, 2024 03:13 PM SECONDARY Oth intvrt disc degen, lumbosacr rgn w discog bck pain only [facility] May 18, 2024 03:13 PM SECONDARY Pain in thoracic spine [facility] May 18, 2024 03:13 PM SECONDARY Segmental and somatic dysfunction of lumbar region [facility] May 18, 2024 03:13 PM SECONDARY Segmental and somatic dysfunction of pelvic region [facility] Plan of Treatment: Future Appointments (+ 6 months) and Future Tests (+/- 45 days) The Plan of Treatment section includes future care activities for the patient from all [place] treatmentfacilities. This section includes future appointments and future orders which are active, pending or scheduled. Future Appointments This section includes appointments that were scheduled to occur 6 months from the date of the Encounter, up to a maximum of 20 appointments. The data comes from all [place] treatment facilities. Appointment Date/Time Appointment Type Appointme nt Facility Name Jun 15, 2024 03:20 PM [facility] [facility] Jul 20, 2024 03:20 PM [facility] MED[facility]INE [facility] Aug 05, 2024 02:30 PM [facility] Aug 17, 2024 03:20 PM [facility] Aug 19, 2024 03:30 PM [facility] September 14, 2024 03:20 PM [facility] Oct 12, 2024 03:20 PM [facility] Oct 20, 2024 03:30 PM [facility] Nov 03, 2024 03:30 PM [facility]ICINE [facility] Social History: Smoking Status (Most current) and Tobacco Use (All prior to encounter date) This section includes the most current, and the historical, smoking and tobacco- related health factors from the [place] facility where the Encounter took place. Current Smoking Status This section includes the most current smoking, or tobacco-related health factor, from the [place] facility where the Encounter took place. Date/Time Current Smoking Status Comment Sandra rose Mar 25, 2022 03:30 PM VA-TOBACCO NEVER USED [facility] Tobacco Use History This section includes a history of the smoking, or tobacco-related health factors, that were collected on or before the date of the Encounter. The data comes from the [place] facility where the Encounter took place. Date/Time [...] the Encounter. Date/Time Encounter Note(s) Provider Source May 18, 2024 03:04 PM CHIROPRACTIC NOTE: LOCAL TITLE: CHIROPRACTIC FOLLOW UP NOTE PB STANDARD TITLE: CHIROPRACTIC NOTE DATE OF NOTE: MAY 18, 2024@15:04 ENTRY DATE: MAY 18, 2024@15:04:14 AUTHOR: T[facility] SEALS COSIGNER: URGENCY: STATUS: COMPLETED CHIROPRACTIC FOLLOW-UP VISIT Patient's language preference for health information: Ivorian Other Communication Methods Needed: SUBJECTIVE: The Bellona is a 49 year old MALE being seen in the Chiropractic clinic for follow-up visit. The Bellona states he is struggling with the recent of his mother due to pneumonia. He describes his back as not too bad, which he attributes to his decreased level of activity. 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 Intersegment joint dysfunction of the lumbar spine and pelvis. PLAN: This is the fifth follow up treatment for the of a [...] and flexibility. /adair/ [facility] Signed: 05/18/2024 15:12 [facility]
--- OUTSIDE RECORDS SUMMARY | 2024-05-18 10:27 | XMS_ITS | Encounter Summary ---
Author Name [facility] [place] Address [address] [place] [address] Care Team Providers Care Electrical Assembler Name Role Phone MAXIMINO SCOTT Primary Care [...] Sanford's Name Patient's Relationship to Policy Sanford [facility] VISION VISION SPECT ERA VISIO N PLAN Jun 12, 2010 [id number] YUNIEL SUNSHINE PATIENT Selected Encounter This section includes the information on record at [place] for the Encounter. Date/Time Encounter Type Encounter Description Reason Pro vider Source May 18, 2024 03:27 PM Outpatient Encounter ADMIN PAT ACTIVTIES (MASNONCT) IHE Encounter Template Text not used by [place] Plan of Treatment: Future Appointments (+ 6 [...] AM[facility]UL[facility] [place] [facility] Aug 05, 2024 02:30 PM [facility] [place] [facility] [facility] Aug 17, 2024 03:20 PM [facility] [place] [facility] Aug 19, 2024 03:30 PM [facility] [place] [facility] September 14, 2024 03:20 PM [facility] [place] [facility] Oct 12, 2024 03:20 PM [facility] [place] [facility] Oct 20, 2024 03:30 PM [facility] [place] [facility] Nov 03, 2024 03:30 PM [facility] [place] [facility] Social History: Smoking [...] 2022 03:30 PM VA-TOBACCO NEVER USED [facility] Tobacco Use History This section [...] AM CURRENT NON-TOBACCO USER-HX OF U [facility] Jul 07, 2002 02:29 PM LIFETIME NON-TOBACCO USER [facility] Feb 04, 2001 11:43 AM LIFETIME NON-TOBACCO USER [facility] Encounter Notes: All associated encounter notes This section contains the clinical notes associated to the Encounter. Date/Time Encounter Note(s) Provider Source May 18, 2024 03:27 PM GENERAL MEDICINE N OTE: LOCAL TITLE: General Note PB STANDARD TITLE: GENERAL MEDICINE NOTE DATE OF NOTE: MAY 18, 2024@15:27 ENTRY DATE: MAY 18, 2024@15:27:48 AUTHOR: GERMÁN DICKSON EXP COSIGNER: URGENCY: STATUS: COMPLETED [place] in clinic today having issues with bluetooth connectivity-did troubleshooting and routine maintence on right hearing aid. /adair/ GERMÁN DICKSON Telehealth Clinical Television Analyzer Signed: 05/18/2024 15:28 GERMÁN DICKSON [facility]
--- OUTSIDE RECORDS SUMMARY | 2024-06-15 10:20 | XMS_ITS ---
Author Name [facility] [place] Organization [place] Address [address] [place] [id number] Care Team Providers Care Clinic Coordinator Name Role Phone MAXIMINO SCOTT Primary Care [...] Patient's Relationship to Policy Sanford [facility] VISION VISION SPECT ERA VISIO N PLAN Jun 12, 2010 [id number] YUNIEL SUNSHINE PATIENT Selected Encounter This section includes the information on record at [place] for the Encounter. 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 Date/Time Primary/Secondary Diagnosis Diagnosis Name Provider Source Jun 15, 2024 03:25 PM PRIMARY Segmental and somatic dysfunction of thoracic region [facility] Jun 15, 2024 03:25 PM SECONDARY Pain in thoracic spine [facility] Jun 15, 2024 03:25 PM SECONDARY Segmental and somatic dysfunction of lumbar region [facility] [place] [facility] Jun 15, 2024 03:25 PM SECONDARY Segmental and somatic dysfunction of pelvic region [facility] Jun 15, 2024 03:25 PM SECONDARY Spondylolisthesis, lumbar region [facility] Jun 15, 2024 03:25 PM SECONDARY Spondyls w/o myelopathy or radiculopathy, lumbosacr region [facility] [place] [facility] Plan of Treatment: Future Appointments (+ 6 months) and Future Tests (+/- 45 days) The Plan of Treatment section includes future care activities for the patient from all [place] [facility] This section includes future appointments and future orders which are active, pending or scheduled. Future Appointments This section includes appointments that were scheduled to occur 6 months from the date of the Encounter, up to a maximum of 20 appointments. The data comes from all [place] treatment facilities. Appointment Date/Time Appointment Type Appointme nt Facility Name Jul 20, 2024 03:20 PM AMBULATORY - MEDICINE [facility] Aug 05, 2024 02:30 PM AMBULATORY - MEDICINE [facility] Aug 17, 2024 03:20 PM [facility]BULATORY - MEDICINE [facility] Aug 19, 2024 03:30 PM AMBULATORY - MEDICINE [facility] September 14, 2024 03:20 PM AMBULATORY - MEDICINE [facility] Oct 12, 2024 03:20 PM [facility] [place] [facility] Oct 20, 2024 03:30 PM [facility]ORY - MEDICINE [facility] Nov 03, 2024 03:30 PM AMBULATORY - MEDICINE [facility] Nov 24, 2024 03:20 PM [facility] [place] [facility] [place] [facility] Dec 08, 2024 03:20 PM [facility] - MEDICINE [facility] Dec 09, 2024 03:00 PM [facility] Vital Signs: All taken on the encounter date This section contains inpatient and outpatient Vital Signs collected on the date of the Encounter. Date/Time Temperature Pulse Blood Pressure Respiratory Rate SP02 Pain Height Weight Body Mass Index Source Jun 15, 2024 03:20 PM 98.2 76 131/91 [facility] Social History: Smoking Status (Most current) and Tobacco Use (All prior to encounter date) This section includes the most current, and the historical, smoking and tobacco- related health factors from the [place] facility where the Encounter took place. Current Smoking Status This section includes the most current smoking, or tobacco-related health factor, from the [place] facility where the Encounter took place. Date/Time Current Smoking Status Comment Facil ity Mar 25, 2022 03:30 PM VA-TOBACCO NEVER USED [facility] Tobacco Use History This section includes a history of the smoking, or tobacco-related health factors, that were collected on or before the date of the Encounter. The data comes from the [place] facility where the Encounter took place. Date/Time [...] the Encounter. The data comes from all [place] treatment facilities. Date/Time Radiology Report Provider Source Jul 01, 2024 04:07 PM CHEST X-RAY, 2 VIE WS: CHRISTINE SUNSHINE [id number] -1975 M Exm Date: JUL 01, 2024@16:07 Req Phys: SCOTTABELINOApple Crooks Loc: [facility] PACT VINNIE CALDERON (Req'g Img Loc: [facility] [place] Service: [place] [address] (Case [id number] COMPLETE) CHEST X-RAY, 2 VIEWS (RAD Detailed) CPT:42834 Reason for Study: continued cough post pneumonia Clinical History: Report Status: Verified Date Reported: JUL 07, 2024 Date Verified: JUL 07, 2024 Industrial Truck Mechanic E-Sig: Report: PA and lateral views of the chest reveal no infiltrate, effusion or other acute intrathoracic process. Heart size is normal. Impression: No acute process Primary Interpreting Staff: VELMA KENNEDY, RADIOLOGIST (Industrial Truck Mechanic, no e-sig) /[facility]MA [facility] [place] [facility] Encounter Notes: All associated encounter notes This section contains the clinical notes associated to the Encounter. Date/Time Encounter Note(s) Provider Source Jun 15, 2024 03:17 PM CHIROPRACTIC NOTE: LOCAL TITLE: CHIROPRACTIC FOLLOW UP NOTE STANDARD TITLE: CHIROPRACTIC NOTE DATE OF NOTE: JUN 15, 2024@15:17 ENTRY DATE: JUN 15, 2024@15:17:27 AUTHOR: [facility] COSIGNER: URGENCY: STATUS: COMPLETED CHIROPRACTIC FOLLOW-UP VISIT Patient's language preference for health information: [place] Islander Other Communication Methods Needed: SUBJECTIVE: The [place] is a 49 year old MALE being seen in the Chiropractic clinic for follow-up visit. The [place] describes his upper back as painful, making it difficult to sleep, while his lower back is doing better since his last adjustment. He states his lower back becomes painful with physical activity. Today, the rates his pain level as a 1-2/10. PAST MEDICAL HISTORY: see problem list SOCIO-ECONOMIC HISTORY: Tobacco: No Prior Tobacco Use Status Available Alcohol: ____ ALLERGIES/ADVERSE REACTIONS: Patient has answered NKA OBJECTIVE: MOVEMENT/POSTURE: The [place] ambulates without issue. 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 Intersegment joint dysfunction of the lumbar spine and pelvis. PLAN: This is the final follow up treatment for the of a planned six treatments. We will treat The once every four weeks for six additional treatments. Prognosis: Fair Today's treatment of the [...] and flexibility. /adair/ [facility] Signed: 06/15/2024 15:25 [facility]
--- OUTSIDE RECORDS SUMMARY | 2024-07-20 10:20 | XMS_ITS | Encounter Summary ---
Author Name [facility] [place] Address [address] [place] [id number] Care Team Providers Care Massage Therapist Name Role Phone MAXIMINO SCOTT Primary Care [...] ERA VISIO N PLAN Jun 12, 2010 [id number] 65 YUNIEL SUNSHINE PATIENT Selected Encounter This section includes the information on record at [place] for the Encounter. 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 Date/Time Primary/Secondary Diagnosis Diagnosis Name Provider Source Jul 20, 2024 03:06 PM PRIMARY Segmental and somatic dysfunction of thoracic region [facility] Jul 20, 2024 03:06 PM SECONDARY Oth intvrt disc degen, lumbosacr w discog bck & lw extrm pn [facility] Jul 20, 2024 03:06 PM SECONDARY Pain in thoracic spine [facility] Jul 20, 2024 03:06 PM SECONDARY Segmental and somatic dysfunction of lumbar region [facility] Jul 20, 2024 03:06 PM SECONDARY Segmental and somatic dysfunction of pelvic region [facility] Plan of Treatment: Future Appointments (+ 6 months) and Future Tests (+/- 45 days) The Plan of Treatment section includes future care activities for the patient from all [place] treatmentfacilities. This section includes future appointments and future orders which are active, pending or scheduled. Future Appointments This section includes appointments that were scheduled to occur 6 months from the date of the Encounter, up to a maximum of 20 appointments. The data comes from all [place] treatment facilities. Appointment Date/Time Appointment Type Appointme nt Facility Name Aug 05, 2024 02:30 PM AMBULATORY - MEDICINE [facility] Aug 17, 2024 03:20 PM AMBULATORY - MEDICINE [facility] Aug 19, 2024 03:30 PM [facility] September 14, 2024 03:20 PM AMBULATORY - MEDICINE [facility] Oct 12, 2024 03:20 PM AMBULATORY - MEDICINE [facility] Oct 20, 2024 03:30 PM AMBULATORY - MEDICINE [facility] Nov 03, 2024 03:30 PM AMBULATORY - MEDICINE [facility] Nov 24, 2024 03:20 PM [facility] Dec 08, 2024 03:20 PM [facility] MEDICINE [facility] Dec 09, 2024 03:00 PM [facility] - [facility]ICINE [facility] Social History: Smoking Status (Most current) and Tobacco Use (All prior to encounter date) This section includes the most current, and the historical, smoking and tobacco- related health factors from the [place] facility where the Encounter took place. Current Smoking Status This section includes the most current smoking, or tobacco-related health factor, from the [place] facility where the Encounter took place. Date/Time Current Smoking Status Yulissa rose Mar 25, 2022 03:30 PM VA-TOBACCO NEVER USED [facility] Tobacco Use History This section includes a history of the smoking, or tobacco-related health factors, that were collected on or before the date of the Encounter. The data comes from the [place] facility where the Encounter took place. Date/Time Smoking Status/Tobacco Use Comment F acility Apr 11, 2021 09:30 AM [place]-TOBAC[place] NEVER USED [facility] [place] [facility] May 09, 2020 10:30 AM VA-TOBACCO FORMER USER [facility] [place] [facility] May 09, 2020 10:30 AM VA-TOBACCO NEVER USED [facility] May 09, 2020 10:30 AM VA-TOBACCO QUIT 1 TO < 5 YRS [facility] May 17, 2019 09:23 AM VA-TOBACCO NEVER USED [facility] May 09, 2008 01:55 PM LIFETIME NON-USER OF [place]BACCO [facility] Jul 30, 2007 10:17 AM LIFETIME NON-USER OF [place]BACCO [facility] Oct 21, 2005 03:05 PM LIFETIME NON-[place]BAC[place] USER [facility] Aug 23, 2004 03:41 PM LIFETIME NON-TOBACCO USER [facility] Jun 11, 2004 10:38 AM CURRENT NON-TOBACCO USER-HX OF [facility] [place] [facility] Jul 07, 2002 02:29 PM LIFETIME NON-TOBACCO USER [facility] Feb 04, 2001 11:43 AM LIFETIME NON-TOBACCO USER [facility] Radiology Reports: +/- 30 days [...] the Encounter. The data comes from all [place] treatment facilities. Date/Time Radiology Report Provider Source Jul 20, 2024 02:32 PM CHEST X-RAY, 2 VIE WS: CHRISTINE SUNSHINE [id number] -1975 M Exm Date: JUL 20, 2024@14:32 Req Phys: MAXIMINO SCOTT Loc: [facility] PACT [facility] (Req Img Loc: [facility] Service: [place] [address] (Case [id number] COMPLETE) CHEST X-RAY, 2 VIEWS (RAD Detailed) CPT:83039 Reason for Study: follow up post pneumonia Clinical History: Report Status: Verified Date Reported: JUL 20, 2024 Date Verified: JUL 20, 2024 Ski Top Trimmer E-Sig: Report: PA and lateral views of the chest reveal no infiltrate, effusion or other acute intrathoracic process. Heart size is at the upper limits of normal. Impression: No acute process Primary Interpreting Staff: VELMA KENNEDY RADIOLOGIST (Ski Top Trimmer, no e-sig) /VELMA [facility] Jul 01, 2024 04:07 PM CHEST X-RAY, 2 VIE WS: CHRISTINE SUNSHINE [id number] -1975 M Exm Date: JUL 01, 2024@16:07 Req Phys: MAXIMINO SCOTT Loc: [facility] PACT JAVONABHAY CALDERON (Req'g Img Loc: [facility] Service: [place] [address] (Case [id number] COMPLETE) CHEST X-RAY, 2 VIEWS (RAD Detailed) CPT:37158 Reason for Study: continued cough post pneumonia Clinical History: Report Status: Verified Date Reported: JUL 07, 2024 Date Verified: JUL 07, 2024 Ski Top Trimmer E-Sig: Report: PA and lateral views of the chest reveal no infiltrate, effusion or other acute intrathoracic process. Heart size is normal. Impression: No acute process Primary Interpreting Staff: CAROLEE HDEZ (Ski Top Trimmer, no e-sig) /VELMA [facility] Encounter Notes: All associated encounter notes This section contains the clinical notes associated to the Encounter. Date/Time Encounter Note(s) Provider Source Jul 20, 2024 02:57 PM CHIROPRACTIC NOTE: LOCAL TITLE: CHIROPRACTIC FOLLOW UP NOTE STANDARD TITLE: CHIROPRACTIC NOTE DATE OF NOTE: JUL 20, 2024@14:57 ENTRY DATE: JUL 20, 2024@14:57:23 AUTHOR: [facility] COSIGNER: URGENCY: STATUS: COMPLETED CHIROPRACTIC FOLLOW-UP VISIT Patient's language preference for health information: Romansh Other Communication Methods Needed: SUBJECTIVE: The is a 49 year old MALE being seen in the Chiropractic clinic for follow-up visit. The states his back has been okay overall, similar to past appointment, with most of his pain today due to the right shoulder region. He states the right shoulder has been painful for the past few days with no specific onset. Today, the rates his pain level as a 3/10. 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 Intersegment joint dysfunction of the lumbar spine and pelvis. PLAN: This is the first follow up treatment for the of a planned six treatments. We will treat The [place] once every four weeks for six treatments. [...] and flexibility. /adair/ [facility] Signed: 07/20/2024 15:06 [facility]
--- OUTSIDE RECORDS SUMMARY | 2024-08-19 10:30 | XMS_ITS | Encounter Summary ---
Author Name [facility] [place] Organization [place] Address [address] [place] [address] Care Team Providers Care Solution Architect Name Role Phone MAXIMINO SCOTT Primary Care [...] Sanford's Name Patient's Relationship to Policy Sanford [facility] VISION VISION SPECT ERA VISIO N PLAN Jun 12, 2010 [id number] YUNIEL SUNSHINE PATIENT Selected Encounter This section includes the information on record at [place] for the Encounter. Date/Time Encounter Type Encounter Description Reason Provider Source Aug 19, 2024 03:30 PM OFFICE O/P EST MOD 30 MIN PRIMARY CARE/MEDICINE ICD-10-CM F32.A Depression, unspecified SHYLA SCOTT R IHE Encounter Template Text not used by [place] Assessments - Encounter Diagnoses This section includes the primary and secondary diagnoses documented for the Encounter. Date/Time Primary/Secondary Diagnosis Diagnosis Name Provider Source Aug 19, 2024 04:31 PM PRIMARY Depression, unspecified [facility] Aug 19, 2024 04:31 PM SECONDARY Anxiety disorder, unspecified ALMA SCOTT [facility] Plan of Treatment: Future Appointments (+ 6 [...] Date/Time Appointment Type Appointme nt Facility Name September 14, 2024 03:20 PM [facility]ATORY [facility] Oct 12, 2024 03:20 PM [facility] Oct 20, 2024 03:30 PM [facility] Nov 03, 2024 03:30 PM [facility] Nov 24, 2024 03:20 PM [facility] Dec 08, 2024 03:20 PM [facility] Dec 09, 2024 03:00 PM [facility]ORY - [facility]IC[facility] Vital Signs: All taken on the encounter date This section contains inpatient and outpatient Vital Signs collected on the date of the Encounter. Date/Time Temperature Pulse Blood Pressure Respiratory Rate SP02 Pain Height Weight Body Mass Index Source Aug 19, 2024 03:32 PM 83 125/86 14 98 0 70.0 222.5 [address] [facility] Social History: Smoking Status (Most current) and Tobacco Use (All prior to encounter date) This section includes the most current, and the historical, smoking and tobacco- related health factors from the [place] facility where the Encounter took place. Current Smoking Status This section includes the most current smoking, or tobacco-related health factor, from the [place] facility where the Encounter took place. Date/Time Current Smoking Status Comment Sandra ity Mar 25, 2022 03:30 PM VA-TOBACCO NEVER USED [facility] Tobacco Use History This section includes a history of the smoking, or tobacco-related health factors, that were collected on or before the date of the Encounter. The data comes from the [place] facility where the Encounter took place. Date/Time Smoking Status/Tobacco Use Comment F acility Apr 11, 2021 09:30 AM VA-TOBACCO NEVER USED [facility] May 09, 2020 10:30 AM VA-TOBACCO FORMER USER [facility] May 09, 2020 10:30 AM VA-TOBACCO NEVER USED [facility] May 09, 2020 10:30 AM VA-TOBACCO QUIT 1 TO < 5 YRS [facility] May 17, 2019 09:23 AM VA-TOBACCO NEVER USED [facility] May 09, 2008 01:55 PM LIFETIME NON-USER OF TOBACCO [facility] Jul 30, 2007 10:17 AM LIFETIME NON-USER OF TOBACCO [facility] Oct 21, 2005 03:05 PM LIFETIME NON-TOBACCO USER [facility] Aug 23, 2004 03:41 PM LIFETIME NON-TOBACCO USER [facility] Jun 11, 2004 10:38 AM CURRENT NON-TOBACCO USER-HX OF U SE [facility] Jul 07, 2002 02:29 PM LIFETIME NON-TOBACCO USER [facility] Feb 04, 2001 11:43 AM LIFETIME NON-TOBACCO USER [facility] Radiology Reports: +/- 30 days [...] the Encounter. The data comes from all [place] treatment facilities. 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 Heart size is at the upper limits of normal. Impression: No acute process Primary Interpreting Staff: VELMA KENNEDY, RADIOLOGIST (Customer Leader, no e-sig) /VELMA Borden [place] CB Encounter Notes: All associated encounter notes This section contains the clinical notes associated to the Encounter. Date/Time Encounter Note(s) Provider Source Aug 19, 2024 04:07 PM PRIMARY CARE PROGR ESS NOTE: LOCAL TITLE: PRIMARY CARE CLINIC PROGRESS NOTE PB STANDARD TITLE: PRIMARY CARE PROGRESS NOTE DATE OF NOTE: AUG 19, 2024@16:07 ENTRY DATE: AUG 19, 2024@16:07:07 AUTHOR: MAXIMINO SCOTT COSIGNER: URGENCY: STATUS: COMPLETED PROVIDER ASSESSMENT DATE & TIME:Aug@16:07 CHIEF COMPLAINT: Depression medication HISTORY OF PRESENT ILLNESS: [place] is being seen for complaints of depression. states that he has felt depressed and irritable. states that he noticed a change when his Mom in May. states that he is not suicidal. He has noticed that he is more irritable. He states that he is sleeping his normal 4-6 hours and that his appetite is fine. Active problems/med list trap puller: 1) HLD - Hyperlipidemia (SNOMED CT 02258386) 2) Low back pain (SNOMED CT 614750925) 3) Elbow pain 4) Numbness of hand 5) Swelling of hand 6) HTN - Hypertension 7) Hearing Loss (SCT 30988765) 8) Carpal tunnel 9) Fatty liver 10) Tinnitus 11) Sciatica 12) Lumbar spondylosis 13) Scoliosis of lumbar spine 14) Exposure to potentially hazardous substance Active Outpatient Medications (including Supplies): Active Outpatient Medications Status 1) CELECOXIB 100MG CAP TAKE ONE CAPSULE BY MOUTH ONCE A DAY ACTIVE TAKE WITH FOOD. Indication: FOR PAIN AND INFLAMMATION 2) HCTZ 12.5/LISINOPRIL 10MG TAB TAKE 1 TABLET BY MOUTH EVERY ACTIVE MORNING FOR HEART OR BLOOD PRESSURE Pending Outpatient Medications Status 1) SERTRALINE HCL 50MG TAB TAKE ONE-HALF TABLET BY MOUTH EVERY PENDING MORNING Indication: FOR DEPRESSION 3 Total Medications REVIEW OF SYSTEMS: HEENT: No Headache. No blurry vision, vision loss, eye pain, red eyes, or foreign body. No runnynose, congestion, or nose bleed. No hearing loss, ringing in the ears, or vertigo. No sore throat or dental pain. RESPIRATORY: No cough, SOA, wheezing, or sputum production. CARDIOVASCULAR: No chest pain, palpitations, tachycardia, PND, or orthopnea. GI: No abdominal pain, nausea, vomiting, diarrhea, constipation, melena, or hematochezia. : No dysuria, hematuria, urinary frequency, weak stream, or post-void dribbling. MUSCULOSKELETAL:No muscle or joint pain. SKIN: No rash, lesions, or infection PSYCH: Depression, anxiety and not suicidal. PHYSICAL ASSESSMENT: VITAL SIGNS Pulse: 83 (08/19/2024 15:32) Blood Pressure: 125/86 (08/19/2024 15:32) Respiratory Rate: 14 (08/19/2024 15:32) Temperature: 98.6 F [37.0 C] (08/17/2024 15:20) Weight: 222.5 lb [100.92 kg] (08/19/2024 15:32) Height: 70.0 in [177.8 cm] (08/19/2024 15:32) Pain: 0 (08/19/2024 15:32) CARDIAC: Regular rate and rhythm without murmur. No edema. RESPIRATORY: CTA, BEBS SKIN: [place] without rash or lesions. NEUROLOGICAL: The is alert and oriented without distress. Affect appropriate. IMPRESSION: Depression-current Axiety-current PLAN: Increase water intake. Start Zoloft 25mg one daily. Follow up in 6 weeks or sooner if needed. Patient is advised this primary care clinic has open access and he can make a same day appointment anytime a problem/concern arises. Patient further advised he can be seen on a walk-in basis as needed. Patient is provided clinic contact information. Medications reviewed and reconciled. Discussed diet and exercise as relevant to patient conditions. Treatment plan as noted above and the After Visit Summary was reviewed with ; opportunity provided to report concerns and ask question regarding aspects of care or treatment or services; concurrence reached and verbalized understanding. Please refer to addendum or follow up lab letter for plan of care/changes related to lab/test results not available at conclusion of appointment, if any. Discussed with patient that in the event of community imaging / testing being ordered in the future, once the imaging / testing has been completed, please notify PACT of within 1 week by a VA PACT member; this is due to intermittent lapses in notification of imaging completion within CPRS. All questions answered; agrees to plan of care. Follow up as listed above, annually, and as needed. Keep all completion at outside facility if not called with results appointments. Medications Reconciled. Time spent 30 minutes. /adair/ CHANDNI [facility] Signed: 08/19/2024 16:29 MAXIMINO SCOTT [facility] Aug 19, 2024 03:53 PM PRIMARY CARE NURSI DMITRY NOTE: LOCAL TITLE: PRIMARY CARE NURSING PROGRESS NOTE (TEXT) NURSING P STANDARD TITLE: PRIMARY CARE NURSING NOTE DATE OF NOTE: AUG 19, 2024@15:53 ENTRY DATE: AUG 19, 2024@15:56:52 AUTHOR: CHRISSIE HENDRICKS EXP COSIGNER: URGENCY: STATUS: COMPLETED Established Patient CHRISTINE SUNSHINE IS A 49 YEAR OLD MALE BEING SEEN IN CLINIC AUG 19, 2024. == == REASON FOR VISIT: [place] reports he is having trouble with his mother passing May. He states he notices that he been having anger issues and is having a hard time dealing with this. Feels down but denies depression or thoughts of suicide. Are you receiving care any where other than the [facility]? No HEALTH AND SURGICAL HISTORY: Does patient report using home oxygen? No CURRENT ACTIVE MEDICATIONS FOR REVIEW: Allergies/ADRs (Tool #5) FACILITY ALLERGY/ADR -------- No Remote Allergy/ADR Data available for this patient [facility] No Known Allergies Med. Reconciliation (Tool #1) INCLUDED IN THIS LIST: Alphabetical list of active outpatient prescriptions dispensed from this NE (local) and dispensed from another NE or [facility] facility (remote) as well as inpatient orders (local pending and active), local clinic medications, locally documented non-VA medications, and local prescriptions that have or been discontinued in the past 90 days. Non-VA Meds Last Documented On: Data not found NOTE The display of VA prescriptions dispensed from another NE or [facility] facility (remote) is limited to active outpatient prescription entries matched to National Drug File at the originating site and may not include some items such as investigational drugs, compounds, etc. NOT INCLUDED IN THIS LIST: Medications self-entered by the patient into personal health records (i.e. [employer]) are NOT included in this list. Non-VA medications documented outside this NE, remote inpatient orders (regardless of status) and remote clinic medications are NOT included in this list. The patient and provider must always discuss medications the patient is taking, regardless of where the medication was dispensed or obtained. OUTPT CELECOXIB 100MG CAP (Status = Active) TAKE ONE CAPSULE BY MOUTH ONCE A DAY TAKE WITH FOOD. Rx# [id number] Last Released: 07/22/24 Qty/Days Supply: Rx Expiration Date: 10/02/24 Refills Remainin Indication: FOR PAIN AND INFLAMMATION OUTPT HCTZ 12.5/LISINOPRIL 10MG TAB (Status = Active) TAKE 1 TABLET BY MOUTH EVERY MORNING FOR HEART OR BLOOD PRESSURE Rx# [id number] Last Released: 07/23/24 Qty/Days Supply: Rx Expiration Date: 10/02/24 Refills Remainin SUPPLIES OUTPT TABLET CUTTER (Status = ) USE TABLET CUTTER ONCE A DAY NEEDED FOR TABLET CUTTING Rx# [id number] Last Released: 04/22/24 Qty/Days Supply: Rx Expiration Date: 07/19/24 Refills Remainin Indication: FOR TABLET CUTTING PHARMACY TERMS AND POSSIBLE PATIENT ACTIONS INPT = NE inpatient order IV = NE intravenous medication OUTPT = NE outpatient prescription PHARMACY POSSIBLE PATIENT TERMS EXPLANATION ACTIONS -------- ----- ACTIVE A prescription that can be If you have refills, filled at the local NE pharmacy. you may request a refill of this prescription from your NE pharmacy. CLINIC A medication you received during If you have questions a visit to a NE clinic or about this medication emergency department. contact your NE healthcare team. DISCONTINUED A prescription your provider has Contact your VA stopped. It is no longer healthcare team if you available to be sent to you or need more of this picked up at the VA pharmacy medication. window. A prescription which is too old Contact your VA to fill. This does not refer to healthcare team if you the expiration date of the need more of this medication in the container. medication. NON-VA A medication that came from If this medication someplace other than a VA information is pharmacy. This may be a incorrect or out of prescription from either the VA date, please tell your or non VA providers that was VA healthcare team. filled outside the VA. Or, it may be an kmpe-rds-xqcaerj (OTC), herbal, dietary supplements or sample medication. ON HOLD An active prescription that will Contact your VA not be filled until pharmacy pharmacy when you need resolves the issue. more of this medication. PARKED An active prescription that will Contact your VA not be filled until the patient pharmacy when you need requests it. this medication. PENDING This prescription order has been If you have been sent to the pharmacy for review instructed to start and is not ready yet. this medication now, contact your VA pharmacy. SUSPENDED An active prescription that is Contact your VA not scheduled to be filled yet. pharmacy if you need You should receive it before this medication now. you run out. Medication list reviewed with Patient Patient/Caregiver reports taking medications as ordered. IS PATIENT TAKING ANY OVER THE COUNTER MEDICATIONS, SUCH VITAMINS OR HERBAL SUPPLEMENTS, INCLUDING ANY MEDICATIONS PRESCRIBED BY ANOTHER PHYSICIAN? No Does patient have any new allergies to report since last visit? NO VITALS: TEMPERATURE: 98.6 F [37.0 C] (08/17/2024 15:20) BP: 125/86 (08/19/2024 15:32) RESP: 14 (08/19/2024:) PULSE: 83 (08/19/2024 15:) HT: 70.0 in [177.8 cm] (08/19/2024 15:32) WT: 222.5 lb [100.92 kg] (08/19/2024 15:) BMI: 32.0 PAIN ASSESSMENT: (Most Recent Pain Score in Vitals Package: 0 (08/19/2024 15:32) ) The patient indicated that they and their close contacts have not traveled outside of the [place] in the past 21 days. The patient reports the following symptoms: No symptoms present The patient is not immunocompromised. The patient does not report having a history of Multi Drug Resistant Organism (MDRO) within the last five years. The patient does not report having been exposed to measles, chickenpox, or zoster in last 30 days. Patient reports no pain at this visit. Pain Score = 0. STRESS: Thank you for your service. Now let us serve you. At the [facility], we strive to provide you with exceptional health care that improves your health and well-being. Are you feeling sad, empty, or depressed? Yes Do you need to talk about things in your life that worry you or cause you stress? No Do you need to talk about personal problems, family problems, alcohol use, drug use, or mental or emotional illness? No SUICIDE SCREENING: The patient was asked, Over the past two weeks, how often have you been bothered by thoughts that you would be better off or of hurting yourself in some way? Not At All SPIRITUAL ASSESSMENT: Are there mandaeism practices or spiritual concerns you want the loss prevention operations manager, your physician, and other health care team members to immediately know about? No Patient advised to call the clinic for any concerns, questions, or symptoms. Patient and/or caregiver verbalized understanding of plan of care. /daair/ CHRISSIE HENDRICKS LPN Signed: 08/19/2024 15:59 CHRISSIE HENDRICKS [facility]
--- OUTSIDE RECORDS SUMMARY | 2024-09-14 10:20 | XMS_ITS | Encounter Summary ---
Author Name [facility] [place] Organization [place] Address [address] [place] [id number] Care Team Providers Care Kiss Setter Hand Name Role Phone MAXIMINO SCOTT Primary Care [...] Sanford's Name Patient's Relationship to Policy Sanford [facility] VISION VISION SPECT ERA VISIO N PLAN Jun 12, 2010 [id number] YUNIEL SUNSHINE PATIENT Selected Encounter This section includes the information on record at [place] for the Encounter. 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 Date/Time Primary/Secondary Diagnosis Diagnosis Name Provider Source September 14, 2024 03:25 PM PRIMARY Segmental and somatic dysfunction of thoracic region [facility] September 14, 2024 03:25 PM SECONDARY Oth intvrt disc degen, lumbosacr rgn w discog bck pain only [facility] September 14, 2024 03:25 PM SECONDARY Pain in thoracic spine [facility] September 14, 2024 03:25 PM SECONDARY Segmental and somatic dysfunction of lumbar region [facility] September 14, 2024 03:25 PM SECONDARY Segmental and somatic dysfunction of pelvic region [facility] September 14, 2024 03:25 PM SECONDARY Spondylolisthesis, lumbar region [facility] Plan of Treatment: Future Appointments (+ 6 months) and Future Tests (+/- 45 days) The Plan of Treatment section includes future care activities for the patient from all [place] treatmentfacilities. This section includes future appointments and future orders which are active, pending or scheduled. Future Appointments This section includes appointments that were scheduled to occur 6 months from the date of the Encounter, up to a maximum of 20 appointments. The data comes from all [place] treatment facilities. Appointment Date/Time Appointment Type Appointme nt Facility Name Oct 12, 2024 03:20 PM AMBULATORY - MEDICINE [facility] Oct 20, 2024 03:30 PM AMBULATORY - MEDICINE [facility] Nov 03, 2024 03:30 PM AMBULATORY - MEDICINE [facility] Nov 24, 2024 03:20 PM AMBULATORY - MEDICINE [facility] Dec 08, 2024 03:20 PM AMBULATORY - MEDICINE [facility] Dec 09, 2024 03:00 PM AMBULATORY - MEDICINE [facility] Active, Pending, and Scheduled Orders This section includes a listing of several types of active, pending, and scheduled orders, including clinic medications orders, diagnostic test orders, procedure orders and consult orders; where the start date of the order is 45 days before the date of the Encounter or 45 days after the date of theEncounter. The data comes from all [place] treatment facilities. Test Date/Time Test Type Test Details Facility Name Oct 20, 2024 03:47 PM Consult Order [facility]MATOLOG[facility] [id number] Cons Software Support Engineer's Choice [facility] Vital Signs: All taken on the encounter date This section contains inpatient and outpatient Vital Signs collected on the date of the Encounter. Date/Time Temperature Pulse Blood Pressure Respiratory Rate SP02 Pain Height Weight Body Mass Index Source September 14, 2024 03:20 PM 98.2 92 120/76 [facility] Social History: Smoking Status (Most current) and Tobacco Use (All prior to encounter date) This section includes the most current, and the historical, smoking and tobacco- related health factors from the [place] facility where the Encounter took place. Current Smoking Status This section includes the most current smoking, or tobacco-related health factor, from the [place] facility where the Encounter took place. Date/Time Current Smoking Status Comment Sandra ity Mar 25, 2022 03:30 PM VA-TOBACCO NEVER USED [facility] Tobacco Use History This section includes a history of the smoking, or tobacco-related health factors, that were collected on or before the date of the Encounter. The data comes from the [place] facility where the Encounter took place. Date/Time [...] the Encounter. Date/Time Encounter Note(s) Provider Source September 14, 2024 03:17 PM CHIROPRACTIC NOTE: LOCAL TITLE: CHIROPRACTIC FOLLOW UP NOTE PB STANDARD TITLE: CHIROPRACTIC NOTE DATE OF NOTE: SEPTEMBER 14, 2024@15:17 ENTRY DATE: SEPTEMBER 14, 2024@15:17:44 AUTHOR: [facility] COSIGNER: URGENCY: STATUS: COMPLETED CHIROPRACTIC FOLLOW-UP VISIT Patient's language preference for health information: Samoan Other Communication Methods Needed: SUBJECTIVE: The is a 49 year old MALE being seen in the Chiropractic clinic for follow-up visit. [place] states his lower back is painful, which he attributes his daily activities. Today, the rates his pain level as a 4-5/10. PAST MEDICAL HISTORY: see problem list SOCIO-ECONOMIC HISTORY: Tobacco: No Prior Tobacco Use Status Available Alcohol: ____ ALLERGIES/ADVERSE REACTIONS: Patient has answered NKA OBJECTIVE: MOVEMENT/POSTURE: [place] ambulates without issue. 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 Intersegment joint dysfunction of the lumbar spine and pelvis. PLAN: This is the third follow up treatment for the of a planned six treatments. We will treat [place] once every four weeks for six treatments. [...] and flexibility. /adair/ [facility] Signed: 09/14/2024 15:23 [facility]
--- OUTSIDE RECORDS SUMMARY | 2024-10-12 10:20 | XMS_ITS | Encounter Summary ---
Author Name [facility] Organization [facility] Address [address] [place] [id number] Care Team Providers Care Mid Level Provider Name Role Phone MAXIMINO SCOTT Primary Care [...] Sanford's Name Patient's Relationship to Policy Sanford [facility] VISION VISION SPECT ERA VISIO N PLAN Jun 12, 2010 [id number] YUNIEL SUNSHINE PATIENT Selected Encounter This section includes the information on record at ME for the Encounter. 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 Date/Time Primary/Secondary Diagnosis Diagnosis Name Provider Source Oct 12, 2024 03:29 PM PRIMARY Segmental and somatic dysfunction of thoracic region [facility] Oct 12, 2024 03:29 PM SECONDARY Oth intvrt disc degen, lumbosacr rgn w discog bck pain only [facility] Oct 12, 2024 03:29 PM SECONDARY Pain in thoracic spine [facility] Oct 12, 2024 03:29 PM SECONDARY Segmental and somatic dysfunction of lumbar region [facility] Oct 12, 2024 03:29 PM SECONDARY Segmental and somatic dysfunction of pelvic region [facility] Oct 12, 2024 03:29 PM SECONDARY Spondylolisthesis, lumbar region [facility] Plan of Treatment: Future Appointments (+ 6 months) and Future Tests (+/- 45 days) The Plan of Treatment section includes future care activities for the [facility] This section includes future appointments and future orders which are active, pending or scheduled. Future Appointments This section includes appointments that were scheduled to occur 6 months from the date of the Encounter, up to a maximum of 20 appointments. The data comes from all [place] treatment facilities. Appointment Date/Time Appointment Type Appointme nt Facility Name Oct 20, 2024 03:30 PM AMBULATORY - MEDICINE [facility] Nov 03, 2024 03:30 PM AMBULATORY - MEDICINE [facility] Nov 24, 2024 03:20 PM AMBULATORY - MEDICINE [facility] Dec 08, 2024 03:20 PM AMBULATORY - MEDICINE [facility] Dec 09, 2024 03:00 PM AMBULATORY - MEDICINE [facility] Active, Pending, and Scheduled Orders This section includes a listing of several types of active, pending, and scheduled orders, including clinic medications orders, diagnostic test orders, procedure orders and consult orders; where the start date of the order is 45 days before the date of the Encounter or 45 days after the date of theEncounter. The data comes from all ME treatment [facility]. Test Date/Time Test Type Test Details Facility Name Oct 20, 2024 03:47 PM Consult Order [facility] [id number] Cons Deputy Brand Inspector's Choice [facility] Lab Results: +/- 30 days of the encounter This section includes the Chemistry and Hematology Lab Results on record with ME for the patient. Radiology Reports and Pathology Reports are provided separately, in subsequent sections. Lab Results This section contains the Chemistry/Hematology Results that were resulted 30 days before or 30 daysafter the date of the Encounter. Date/Time Source Result Type Result - Unit Interpretation Reference Range Specimen Type Comment Oct 20, 2024 03:24 PM [facility] TSH (MA-PB) SERUM Specimen Type: SERUM No comment entered. Ordering Provider: MAXIMINO SCOTT Report Released Date/Time: Oct 20, 2024 03:23 PM Reporting Lab: [place] [facility] [address] [place] [address] Performing Lab: [place] [facility] [address] [place] [address] TSH 1.275 u[IU]/mL 0.47-5 Oct 20, 2024 03:24 PM [facility] VITAMIN D, 25-HYDROXY SERUM Specimen Type: SE RUM No comment entered. Ordering Provider: MAXIMINO SCOTT Report Released Date/Time: Oct 20, 2024 03:23 PM Reporting Lab: [place] [facility] [address] [place] [address] Performing Lab: [place] [facility] [address] [place] [address] VITAMIN D, 25-HYDROXY 38.7 ng/mL 30-96 Oct 20, 2024 03:24 PM [facility] PROST. SPECIFIC AG.(PB-STL) SERUM Specimen Ty pe: SERUM No comment entered. Ordering Provider: MAXIMINO SCOTT Report Released Date/Time: Oct 20, 2024 03:23 PM Reporting Lab: [place] [facility] [address] [place] [address] Performing Lab: [place] [facility] [address] [place] [address] PROST. SPECIFIC AG.(PB-STL) 0.77 ng/mL 0 -4 Oct 20, 2024 03:24 PM [facility] CHOLESTEROL PANEL (PB) PLASMA Specimen Type: P LASMA Comment: LDL calculation invalid when Triglyceride exceeds 250 mg/dl Ordering Provider: MAXIMINO SCOTT Report Released Date/Time: Oct 20, 2024 03:23 PM Reporting Lab: [place] [facility] [address] [place] [address] Performing Lab: [place] [facility] [address] [place] [address] CHOLESTEROL 244 mg/dL H 0-200 TRIGLYCERIDE 288 mg/dL H 0-150 CALCULATED LDL comment mg/dL HDL(New) 35.0 mg/dL L >40 HDL % OF TOTAL CHOLESTEROL (PB) 14.3 >25 DIRECT LDL(MA) 176.6 mg/dL H 0-99.9 Oct 20, 2024 03:24 PM [facility] HGA1C BLOOD Specimen Type: BLOOD No comment entered. Ordering Provider: MAXIMINO SCOTT Report Released Date/Time: Oct 20, 2024 03:23 PM Reporting Lab: [place] [facility] [address] [place] [address] Performing Lab: [place] [facility] [address] [place] [address] HGA1C 5.8 4.0-6.0 Oct 20, 2024 03:24 PM [facility] COMPREHENSIVE METABOLIC PANEL PLASMA Specimen Type: PLASMA Comment: LDL calculation invalid when Triglyceride exceeds 250 mg/dl Ordering Provider: MAXIMINO SCOTT Report Released Date/Time: Oct 20, 2024 03:23 PM Reporting Lab: [place] [facility] [address] [place] [address] Performing Lab: [place] [facility] [address] [place] [address] CREATININE 1.03 mg/dL 0.7-1.3 UREA NITROGEN 13 mg/dL 9-25 GLUCOSE 94 mg/dL 72-99 SODIUM 139 meq/L 136-145 POTASSIUM 4.0 meq/L 3.5-5 CHLORIDE 103 meq/L 98-107 CARBON DIOXIDE 26 meq/L 22-31 CALCIUM 9.4 mg/dL 8.4-10.4 PROTEIN 7.5 g/dL 6-8.6 ALBUMIN 4.8 g/dL 3.4-5 TOTAL BILIRUBIN 0.6 mg/dL 0.2-1.2 ALKALINE PHOSPHATASE 74 U/L 40-150 AST/SGOT 48 U/L H 5-34 ALT/SGPT 82 U/L H 8-40 EGFR (CKD-EPI 2020) 90 Oct 20, 2024 03:24 PM [facility] URINALYSIS (STL-PB) URINE Specimen Type: URIN E No comment entered. Ordering Provider: MAXIMINO SCOTT Report Released Date/Time: Oct 20, 2024 03:23 PM Reporting Lab: [place] [facility] [address] [place] [address] Performing Lab: [place] [facility] [address] [facility] [place] [address] URINE COLOR Yellow Yellow U.BILIRUBIN NEGATIVE mg/dL Negative U.PH 6.0 5.0-8.0 APPEARANCE CLEAR Clear U.NITRITE NEGATIVE mg/dL Negative URN.GLUCOSE NORMAL mg/dL Negative URN.PROTEIN NEGATIVE mg/dL URN.UROBILINOGEN NORMAL mg/dL Normal URN.BLOOD NEGATIVE mg/dL Negative-Trace URN.KETONES NEGATIVE mg/dL Negative-Trac e URN.LEUK.EST. NEGATIVE Negative-Trace URN.SPECIFIC GRAVITY 1.026 1.005-1.029 Oct 20, 2024 03:24 PM [facility] CBC BLOOD Specimen Type: BLOOD No comment entered. Ordering Provider: MAXIMINO SCOTT Report Released Date/Time: Oct 20, 2024 03:23 PM Reporting Lab: [place] [facility] [address] [facility] [place] [address] Performing Lab: [place] [facility] [address] [facility] [place] [address] WBC 7.1 10*3/uL 3.6-11.2 RBC 5.16 10*6/uL 4.10-5.70 HGB 15.2 g/dL 13.1-16.8 HCT 44.8 38.2-48.4 MCV 86.8 fL 80.0-100.0 MCH 29.5 pg 27.0-34.0 MCHC 33.9 g/dL 33.0-36.0 PLT 257 10*3/uL 150-400 MPV 8.6 fL 7.5-11.2 RDW 12.8 11.8-15.1 LYMPHOCYTES, AUTO % 30.3 MONOCYTES, AUTO % 10.0 NEUTROPHILS, AUTO % 55.4 EOSINOPHILS, AUTO % 2.3 BASOPHILS, AUTO % 1.0 LYMPHOCYTES, ABSOLUTE 2.15 10*3/uL 0.77- 4.50 MONOCYTES, ABSOLUTE 0.71 10*3/uL 0.19-0. 8 NEUTROPHILS, ABSOLUTE 3.93 10*3/uL 2.10- 8.00 EOSINOPHILS, ABSOLUTE 0.16 10*3/uL 0.00- 0.60 BASOPHILS, ABSOLUTE 0.07 10*3/uL 0.00-0. 20 IMMATURE GRANS, AUTO % 1.0 IMMATURE GRANS, AUTO ABS 0.07 10*3/uL H 0. 00-0.05 Vital Signs: All taken on the encounter date This section contains inpatient and outpatient Vital Signs collected on the date of the Encounter. Date/Time Temperature Pulse Blood Pressure Respiratory Rate SP02 Pain Height Weight Body Mass Index Source Oct 12, 2024 03:20 PM 99 87 131/82 [facility] Social History: Smoking Status (Most current) and Tobacco Use (All prior to encounter date) This section includes the most current, and the historical, smoking and tobacco- related health factors from the ME facility where the Encounter took place. Current Smoking Status This section includes the most current smoking, or tobacco-related health factor, from the ME facility where the Encounter took place. Date/Time Current Smoking Status Comment Facil ity Mar 25, 2022 03:30 PM VA-TOBACCO NEVER USED [facility] Tobacco Use History This section includes a history of the smoking, or tobacco-related health factors, that were collected on or before the date of the Encounter. The data comes from the ME facility where the Encounter took place. Date/Time [...] 07, 2002 02:29 PM LIFETIME NON-TOBACCO US[facility] Feb 04, 2001 11:43 AM LIFETIME NON-TOBACCO USER [facility] Radiology Reports: +/- 30 days [...] the Encounter. The data comes from all [place] treatment facilities. Date/Time Radiology Report Provider Source Nov 03, 2024 03:23 PM FOOT,LEFT 3 VIEWS OR MORE: CHRISTINE SUNSHINE [id number] -[id number] M Exm Date: NOV 03, 2024@15:23 Req Phys: MAXIMINO SCOTT Loc: [facility] (Req Img Loc: PB-XRAY [facility] Service: [place] [address] (Case [id number] COMPLETE) FOOT,LEFT 3 VIEWS OR MORE (RAD Detailed) CPT:36002 Proc Modifiers : LEFT Reason for Study: left foot pain Clinical History: reinjured yesterday. pain on dorsum of foot with flexion. mild swelling on lateral malleolus Report Status: Verified Date Reported: NOV 03, 2024 Date Verified: NOV 03, 2024 Commercial Diver E-Sig: Report: Left foot 3 views. HISTORY: Left foot pain reinjured yesterday DATE: 11/03/2024 FINDINGS: No evidence of a fracture or dislocation. No bony destruction. Early degenerative changes interphalangeal joints. Spur posterior and plantar aspect calcaneus. Impression: 1. No acute bony change 2. Early degenerative changes interphalangeal joints 3. Spur posterior and plantar aspect calcaneus Primary Interpreting Staff: CLAIR GARIBAY, RADIOLOGIST (Commercial Diver, no e-sig) /[facility] Oct 20, 2024 03:43 PM ANKLE,LEFT,3 VIEWS : CHRISTINE SUNSHINE [id number] -[id number] M Exm Date: OCT 20, 2024@15:43 Req Phys: MAXIMINO SCOTT Pat Loc: [facility] (Req Img Loc: [facility] Service: [place] [address] (Case [id number] COMPLETE) ANKLE,LEFT,3 VIEWS (RAD Detailed) CPT:13244 Proc Modifiers : LEFT Reason for Study: left ankle pain Clinical History: bruising and tender on medial malleolus-injured two weeks ago Report Status: Verified Date Reported: OCT 21, 2024 Date Verified: OCT 21, 2024 Commercial Diver E-Sig: Report: 3 views of the left ankle reveal no acute osseous or adjacent soft tissue abnormality. Impression: No acute process Primary Interpreting Staff: VELMA KENNEDY, RADIOLOGIST (Commercial Diver, no e-sig) /VELMA Borden [facility] Encounter Notes: All associated encounter notes This section contains the clinical notes associated to the Encounter. Date/Time Encounter Note(s) Provider Source Oct 12, 2024 03:22 PM CHIROPRACTIC NOTE: LOCAL TITLE: CHIROPRACTIC FOLLOW UP NOTE STANDARD TITLE: CHIROPRACTIC NOTE DATE OF NOTE: OCT 12, 2024@15:22 ENTRY DATE: OCT 12, 2024@15:22:21 AUTHOR: [facility] COSIGNER: URGENCY: STATUS: COMPLETED CHIROPRACTIC FOLLOW-UP VISIT Patient's language preference for health information: Kosovan Other Communication Methods Needed: SUBJECTIVE: The is a 49 year old MALE being seen in the Chiropractic clinic for follow-up visit. The describes his lower back as constantly stiff with infrequent pain when he is sleeping. Today, the rates his pain level as a 2-3/10. PAST MEDICAL HISTORY: see problem list SOCIO-ECONOMIC HISTORY: Tobacco: No Prior Tobacco Use Status Available Alcohol: ____ ALLERGIES/ADVERSE REACTIONS: Patient has answered NKA OBJECTIVE: MOVEMENT/POSTURE: The [place] ambulates without issue. SEGMENTAL DYSFUNCTION: Joint dysfunction [...] Case # 10/17/2022 [facility] [employer] [id number] BENDING VIEWS MIN 6 VIEWS ASSESSMENT: [...] and flexibility. /adair/ [facility] Signed: 10/12/2024 15:28 [facility] [place] [facility]
--- OUTSIDE RECORDS SUMMARY | 2024-10-20 10:30 | XMS_ITS | Encounter Summary ---
Author Name [facility] [place] Organization [facility] [place] Address [address] [place] [address] Care Team Providers Care Manager Desktop Name Role Phone MAXIMINO SCOTT Primary Care [...] Sanford's Name Patient's Relationship to Policy [facility]ford [facility] VISION SPECT ERA VISIO N PLAN Jun 12, 2010 [id number] ANN MARIEMARTIYUNIEL HELEN PATIENT Selected Encounter This section includes the information on record at CT for the Encounter. Date/Time Encounter Type Encounter Description Reason Provider Source Oct 20, 2024 03:30 PM Outpatient Encounter PRIMARY CARE/MEDICINE ICD-10-CM Z00.00 Encntr for general adult medical exam w/o abnormal findings SHYLA SCOTT Apple Encounter Template Text not used by CT Assessments - Encounter Diagnoses This section includes the primary and secondary diagnoses documented for the Encounter. Date/Time Primary/Secondary Diagnosis Diagnosis Name Provider Source Oct 20, 2024 05:39 PM PRIMARY Encntr for general adult medical exam w/o abnormal findings SHYLA SCOTT [facility] Oct 20, 2024 05:39 PM SECONDARY Essential (primary) hypertension SHYLA SCOTT [facility] Oct 20, 2024 05:39 PM SECONDARY Hyperlipidemia, unspecified SHYLA SCOTT R [facility] Oct 20, 2024 05:39 PM SECONDARY Low back pain, unspecified SHYLA SCOTT R [facility] Oct 20, 2024 05:39 PM SECONDARY Pain in left ankle and joints of left foot SHYLA SCOTT R [facility] Plan of Treatment: Future Appointments (+ 6 months) and Future Tests (+/- 45 days) The Plan of Treatment section includes future care activities for the patient [facility] This section includes future appointments and future orders which are active, pending or scheduled. Future Appointments This section includes appointments that were scheduled to occur 6 months from the date of the Encounter, up to a maximum of 20 appointments. The data comes from all CT treatment facilities. Appointment Date/Time Appointment Type Appointme nt Facility Name Nov 03, 2024 03:30 PM AMBULATORY - MEDICINE [facility] Nov 24, 2024 03:20 PM AMBULATORY - MEDICINE [facility] Dec 08, 2024 03:20 PM AMBULATORY - MEDICINE [facility] Dec 09, 2024 03:00 PM AMBULATORY - MEDICINE [facility] Active, Pending, and Scheduled Orders This section includes a listing of several types of active, pending, and scheduled orders, including clinic medications orders, diagnostic test orders, procedure orders and consult orders; where the start date of the order is 45 days before the date of the Encounter or 45 days after the date of theEncounter. The data comes from all CT treatment [facility]. Test Date/Time Test Type Test Details Facility Name Oct 20, 2024 03:47 PM Consult Order COMMUNITY CARE-DERMATOLOGY 657A4 Cons Dj Instructor's Choice [facility] Lab Results: +/- 30 days of the encounter This section includes the Chemistry and Hematology Lab Results on record with CT for the patient. Radiology Reports and Pathology Reports are provided separately, in subsequent sections. Lab Results This section contains the Chemistry/Hematology Results that were resulted 30 days before or 30 daysafter the date of the Encounter. Date/Time Source Result Type Result - Unit Interpretation Reference Range Specimen Type Comment Oct 20, 2024 03:24 PM [facility] PROST. SPECIFIC AG.(PB-STL) SERUM Specimen Ty pe: SERUM No comment entered. Ordering Provider: ABELINO SCOTT R Report Released Date/Time: Oct 20, 2024 03:23 PM Reporting Lab: [place] [facility] [address] [place] [id number] Performing Lab: [place] [facility] [address] [place] [id number] PROST. SPECIFIC AG.(PB-STL) 0.77 ng/mL 0 -4 Oct 20, 2024 03:24 PM [facility] TSH (MA-PB) SERUM Specimen Typ e: SERUM No comment entered. Ordering Provider: MAXIMINO SCOTT Report Released Date/Time: Oct 20, 2024 03:23 PM Reporting Lab: [place] [facility] [address] [place] [id number] Performing Lab: [place] [facility] [address] [place] [id number] TSH 1.275 u[IU]/mL 0.47-5 Oct 20, 2024 03:24 PM [facility] VITAMIN D, 25-HYDROXY SERUM Specimen Type: SE RUM No comment entered. Ordering Provider: MAXIMINO SCOTT Report Released Date/Time: Oct 20, 2024 03:23 PM Reporting Lab: [place] [facility] [address] [place] [id number] Performing Lab: [place] [facility] [address] [place] [id number] VITAMIN D, 25-HYDROXY 38.7 ng/mL 30-96 Oct 20, 2024 03:24 PM [facility] CHOLESTEROL PANEL (PB) PLASMA Specimen Type: P LASJENNIFER Comment: LDL calculation invalid when Triglyceride exceeds 250 mg/dl Ordering Provider: MAXIMINO SCOTT Report Released Date/Time: Oct 20, 2024 03:23 PM Reporting Lab: [place] [facility] [address] [place] [phone] Performing Lab: [place] [facility] [address] [place] [phone] CHOLESTEROL 244 mg/dL H 0-200 TRIGLYCERIDE 288 mg/dL H 0-150 CALCULATED LDL comment mg/dL HDL(New) 35.0 mg/dL L >40 HDL % OF TOTAL CHOLESTEROL (PB) 14.3 >25 DIRECT LDL(MA) 176.6 mg/dL H 0-99.9 Oct 20, 2024 03:24 PM [facility] HGA1C BLOOD Specimen Type: BLOOD No comment entered. Ordering Provider: MAXIMINO SCOTT Report Released Date/Time: Oct 20, 2024 03:23 PM Reporting Lab: [place] [facility] [address] [place] [phone] Performing Lab: [place] [facility] [address] [place] [id number] HGA1C 5.8 4.0-6.0 Oct 20, 2024 03:24 PM [facility] URINALYSIS (STL-PB) URINE Specimen Type: URIN E No comment entered. Ordering Provider: MAXIMINO SCOTT Report Released Date/Time: Oct 20, 2024 03:23 PM Reporting Lab: [place] [facility] [address] [place] [phone] Performing Lab: [place] [facility] [address] [place] [id number] URINE COLOR Yellow Yellow U.BILIRUBIN NEGATIVE mg/dL Negative U.PH 6.0 5.0-8.0 APPEARANCE CLEAR Clear U.NITRITE NEGATIVE mg/dL Negative URN.GLUCOSE NORMAL mg/dL Negative URN.PROTEIN NEGATIVE mg/dL URN.UROBILINOGEN NORMAL mg/dL Normal URN.BLOOD NEGATIVE mg/dL Negative-Trace URN.KETONES NEGATIVE mg/dL Negative-Trac e URN.LEUK.EST. NEGATIVE Negative-Trace URN.SPECIFIC GRAVITY 1.026 1.005-1.029 Oct 20, 2024 03:24 PM [facility] COMPREHENSIVE METABOLIC PANEL PLASMA Specimen Type: PLASMA Comment: LDL calculation invalid when Triglyceride exceeds 250 mg/dl Ordering Provider: MAXIMINO SCOTT Report Released Date/Time: Oct 20, 2024 03:23 PM Reporting Lab: [place] [facility] [address] [place] [phone] Performing Lab: [place] [facility] [address] [place] [phone] CREATININE 1.03 mg/dL 0.7-1.3 UREA NITROGEN 13 [...] 2020) 90 Oct 20, 2024 03:24 PM [facility] CBC BLOOD Specimen Type: BLOOD No comment entered. Ordering Provider: MAXIMINO SCOTT Report Released Date/Time: Oct 20, 2024 03:23 PM Reporting Lab: [place] [facility] [address] [place] [facility] [phone] Performing Lab: [place] [facility] [address] [facility] [phone] WBC 7.1 10*3/uL 3.6-11.2 RBC 5.16 10*6/uL [...] Height Weight Body Mass Index Source Oct 20, 2024 03:32 PM 93 118/81 14 98 0 70.0 223.3 32 [place] [facility] Social History: Smoking Status (Most current) and Tobacco Use (All prior to encounter date) This section includes the most current, and the historical, smoking and tobacco- related health factors from the CT facility where the Encounter took place. Current Smoking Status This section includes the most current smoking, or tobacco-related health factor, from the [place] facility where the Encounter took place. Date/Time Current Smoking Status Comment Facil ity Oct 20, 2024 03:30 PM VA-TOBACCO NEVER USED CIGARETTES [facility] Tobacco Use History This section includes a history of the smoking, or tobacco-related health factors, that were collected on or before the date of the Encounter. The data comes from the CT facility where the Encounter took place. Date/Time Smoking Status/Tobacco Use Comment F acility Oct 20, 2024 03:30 PM VA-TOBACCO NEVER USED OTHER TYPE [facility] Mar 25, 2022 03:30 PM VA-TOBACCO NEVER USED [facility] [place] Apr 11, 2021 09:30 AM VA-TOBACCO NEVER [...] 07, 2002 02:29 PM LIFETIME NON-TOBACCO USER [place] [facility] Feb 04, 2001 11:43 AM LIFETIME NON-TOBACCO USER [place] [facility] Radiology Reports: +/- 30 days [...] the Encounter. The data comes from all CT treatment facilities. Date/Time Radiology Report Provider Source Nov 03, 2024 03:23 PM FOOT,LEFT 3 VIEWS OR MORE: CHRISTINE SUNSHINE [id number] -[id number] M Exm Date: NOV 03, 2024@15:23 Req Phys: MAXIMINO SCOTT Loc: PB-MACRINA PACT VINNIE ARENAS (Req Img Loc: PB-XRAY [place] Service: [place] [address] (Case [id number] COMPLETE) FOOT,LEFT 3 VIEWS OR MORE (RAD Detailed) CPT:70790 Proc Modifiers : LEFT Reason for Study: left foot pain Clinical History: reinjured yesterday. pain on dorsum of foot with flexion. mild swelling on lateral malleolus Report Status: Verified Date Reported: NOV 03, 2024 Date Verified: NOV 03, 2024 Help Desk Associate E-Sig: Report: Left foot 3 views. HISTORY: Left foot pain reinjured yesterday DATE: 11/03/2024 FINDINGS: No evidence of a fracture or dislocation. No bony destruction. Early degenerative changes interphalangeal joints. Spur posterior and plantar aspect calcaneus. Impression: 1. No acute bony change 2. Early degenerative changes interphalangeal joints 3. Spur posterior and plantar aspect calcaneus Primary Interpreting Staff: CLAIR GARIBAY, RADIOLOGIST (Help Desk Associate, no e-sig) /CLAIR Grimm [place] [facility] Oct 20, 2024 03:43 PM ANKLE,LEFT,3 VIEWS : CHRISTINE SUNSHINE [id number] -1975 M Exm Date: OCT 20, 2024@15:43 Req Phys: MAXIMINO SCOTT Loc: PB-MACRINA PACT FOXSHEILA DRIER TENDER NAPHTHALENE WH (Req Img Loc: PB-XRAY [place] Service: [place] [id number] (Case [id number] COMPLETE) ANKLE,LEFT,3 VIEWS (RAD Detailed) CPT:10955 Proc Modifiers : LEFT Reason for Study: left ankle pain Clinical History: bruising and tender on medial malleolus-injured two weeks ago Report Status: Verified Date Reported: OCT 21, 2024 Date Verified: OCT 21, 2024 Help Desk Associate E-Sig: Report: 3 views of the left ankle reveal no acute osseous or adjacent soft tissue abnormality. Impression: No acute process Primary Interpreting Staff: VELMA KENNEDY, RADIOLOGIST (Help Desk Associate, no e-sig) /VELMA Borden [facility] Encounter Notes: All associated encounter notes This section contains the clinical notes associated to the Encounter. Date/Time Encounter Note(s) Provider Source Oct 29, 2024 03:47 PM NURSING PROGRESS N OTE: LOCAL TITLE: NURSING NOTE PB STANDARD TITLE: NURSING PROGRESS NOTE DATE OF NOTE: OCT 29, 2024@15:47 ENTRY DATE: OCT 29, 2024@15:47:36 AUTHOR: NIKKO LEIJA COSIGNER: URGENCY: STATUS: COMPLETED NURSING NOTE PB Has ADDENDA Contacted [place] and reviewed test result letter. advised that he would like to have cholestrol medication mailed out through the CT. stated that he has had an US of his liver in the past and it showed fatty liver disease. stated that his ankle is still bruised and does have some swelling by the end of the day. I advised [place] if the left ankle symptoms due not improve in the next couple of weeks to follow up with PCP. voiced understanding. /adair/ Nikko Leija RN Ericson CBKEESHA, CHARLENE [facility] Signed: 10/29/2024 15:51 Receipt Acknowledged By: 10/29/2024 15:56 /es/ [facility] 11/03/2024 ADDENDUM STATUS: COMPLETED contacted clinic and left VM that he is still experiencing left ankle pain and swelling. I attempted to contact [place] to schedule an appt with PCP for follow up. No answer. Left VM. /es/ Nikko Leija RN [facility], [place] Signed: 11/03/2024 13:49 NIKKO LEIJA [facility] Oct 20, 2024 03:39 PM PRIMARY CARE PROGR ESS NOTE: LOCAL TITLE: PRIMARY CARE CLINIC PROGRESS NOTE PB STANDARD TITLE: PRIMARY CARE PROGRESS NOTE DATE OF NOTE: OCT 20, 2024@15:39 ENTRY DATE: OCT 20, 2024@15:39:33 AUTHOR: MAXIMINO SCOTT COSIGNER: URGENCY: STATUS: COMPLETED PROVIDER ASSESSMENT DATE & TIME:Oct@15:39 CHIEF COMPLAINT: Annual physical and labs. HISTORY OF PRESENT ILLNESS: is seen for his annual physical and labs. [place] needs renewal of his medications. [place] denies any health concerns. [place] states he did hurt his left ankle at work a couple of weeks ago and it was bruised and swollen on the inner part. It still has a slight bruise and is tender. He does not have a limp with a gait. He does not use tobacco or alcohol products. 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 No [...] urinary frequency, weak stream, or post-void dribbling. MUSCULOSKELETAL:left ankle pain. SKIN: No rash, lesions, or infection PSYCH: No Depression or Anxiety. Not suicidal. PHYSICAL ASSESSMENT: VITAL SIGNS Pulse: 93 (10/20/2024 15:32) Blood Pressure: 118/81 (10/20/2024 15:32) Respiratory Rate: 14 (10/20/2024 15:32) Temperature: 99 F [37.2 C] (10/12/2024 15:20) Weight: 223.3 lb [101.29 kg] (10/20/2024 15:32) Height: 70.0 in [177.8 cm] (10/20/2024 15:32) Pain: 0 (10/20/2024 15:32) HEENT:PERRL, EOMI, Fundi benign, TM's clear, Pharynx not red and without exudate, tonsils normal size. NECK: Supple, no lymhadenopathy, thyroid normal. CARDIAC: Regular rate and rhythm without murmur. No edema. RESPIRATORY: CTA, BEBS GI: Abdomen soft,with ABS, no HSM, no guarding or rebound. MUSCULOSKELETAL:Left ankle tenderness on medial malleolus with slight bruising. FROM. SKIN: [place] without rash or lesions. NEUROLOGICAL: The is alert and oriented without distress. Affect appropriate. IMPRESSION: Encounter for General Adult Medical Exam Hypertension-stable Hyperlipidemia-stable Low Back Pain-chronic Left Ankle Pain-current PLAN: Increase water intake. Continue current medications. Labs today. Left ankle xray. RTC in one year or sooner if needed. Patient is advised [...] the After Visit Summary was reviewed with [place]; opportunity provided to report concerns and ask [...] Reconciled. Time spent 30 minutes. /adair/ CHANDNI [facility] Signed: 10/20/2024 17:38 MAXIMINO SCOTT [facility] Oct 20, 2024 03:36 PM PRIMARY CARE NURSI NG NOTE: LOCAL TITLE: PRIMARY CARE NURSING PROGRESS NOTE (TEXT) NURSING P STANDARD TITLE: PRIMARY CARE NURSING NOTE DATE OF NOTE: OCT 20, 2024@15:36 ENTRY DATE: OCT 20, 2024@15:36:13 AUTHOR: CHRISSIE HENDRICKS EXP COSIGNER: URGENCY: STATUS: COMPLETED Established Patient CHRISTINE SUNSHINE IS A 49 YEAR OLD MALE BEING SEEN IN CLINIC OCT 20, 2024. == == REASON FOR VISIT: [place] here today for his annual appt with provider. Are you receiving care any where other than the [facility]? No HEALTH AND SURGICAL HISTORY: Does patient report using home oxygen? No CURRENT ACTIVE MEDICATIONS FOR REVIEW: If the list for review does not include a component, then it was not applicable to this patient. Allergies/ADRs (Tool #5) FACILITY ALLERGY/ADR -------- No Remote Allergy/ADR Data available for this patient [facility] No Known Allergies Med. Reconciliation (Tool #1) INCLUDED IN THIS LIST: Alphabetical list of active outpatient prescriptions dispensed from this CT (local) and dispensed from another CT or [facility] facility (remote) as well as inpatient orders (local pending and active), local clinic medications, locally documented non-VA medications, and local prescriptions that have or been discontinued in the past 90 days. Non-VA Meds Last Documented On: Data not found NOTE The display of VA prescriptions dispensed from another CT or [facility] facility (remote) is limited to active outpatient prescription entries matched to National Drug File at the originating site and may not include some items such as investigational drugs, compounds, etc. NOT INCLUDED IN THIS LIST: Medications self-entered by the patient into personal health records (i.e. [employer]) are NOT included in this list. Non-VA medications documented outside this CT, remote inpatient orders (regardless of status) and remote clinic medications are NOT included in this list. The patient and provider must always discuss medications the patient is taking, regardless of where the medication was dispensed or obtained. OUTPT CELECOXIB 100MG CAP (Status = ) TAKE ONE CAPSULE BY MOUTH ONCE A DAY TAKE WITH FOOD. Rx# [id number] Last Released: 07/22/24 Qty/Days Supply: Rx Expiration Date: 10/02/24 Refills Remainin Indication: FOR PAIN AND INFLAMMATION OUTPT HCTZ 12.5/LISINOPRIL 10MG TAB (Status = ) TAKE 1 TABLET BY MOUTH EVERY MORNING FOR HEART OR BLOOD PRESSURE Rx# [id number] Last Released: 07/23/24 Qty/Days Supply: Rx Expiration Date: 10/02/24 Refills Remainin OUTPT SERTRALINE HCL 50MG TAB (Status = Active) TAKE ONE-HALF TABLET BY MOUTH EVERY MORNING FOR DEPRESSION Rx# [id number] Last Released: 08/24/24 Qty/Days Supply: Rx Expiration Date: 08/20/25 Refills Remainin Indication: FOR DEPRESSION SUPPLIES PHARMACY TERMS AND POSSIBLE PATIENT ACTIONS INPT = CT inpatient order IV = CT intravenous medication OUTPT = CT outpatient prescription PHARMACY POSSIBLE PATIENT TERMS EXPLANATION ACTIONS -------- ----- ACTIVE A prescription that can be If you have refills, filled at the local [place] pharmacy. you may request a refill of this prescription from your CT pharmacy. CLINIC A medication you received during If you have questions a visit to a CT clinic or about this medication emergency department. contact your CT healthcare team. DISCONTINUED A prescription your provider has Contact your [facility] stopped. It is no longer healthcare team if you available to be sent to you or need more of this picked up at the CT pharmacy medication. window. A prescription which is too old Contact your CT to fill. This does not refer to [...] the VA. Or, it may be an inyn-nio-gfdcubr (OTC), herbal, dietary supplements or sample medication. [...] An active prescription that is Contact your CT not scheduled to be filled yet. pharmacy [...] report since last visit? NO VITALS: TEMPERATURE: 99 F [37.2 C] (10/12/2024 15:20) BP: 118/81 (10/20/2024 15:32) RESP: 14 (10/20/2024 15:32) PULSE: 93 (10/20/2024 15:32) HT: 70.0 in [177.8 cm] (10/20/2024 15:32) WT: 223.3 lb [101.29 kg] (10/20/2024 15:32) BMI: 32.1 PAIN ASSESSMENT: (Most Recent Pain Score in Vitals Package: 0 (10/20/2024 15:32) ) The patient indicated that they [...] Now let us serve you. At the [facility], we strive to provide you with exceptional health care that improves your health and well-being. Are you feeling sad, empty, or depressed? No Do you need to talk about things [...] Not At All SPIRITUAL ASSESSMENT: Are there faith practices or spiritual concerns you want the supervisor sleeping bag department, your physician, and other health care team members to immediately know about? No Patient advised to call the clinic for any concerns, questions, or symptoms. Patient and/or caregiver verbalized understanding of plan of care. Suicide Screen - V: C-SSRS Screening [place] Suicide Severity Rating Scale (C-SSRS) screener 1. Over the past month, have you wished you were or wished you could go to sleep and not wake up? No 2. Over the past month, have you had any actual thoughts of killing yourself? No 3. Over the past month, have you been thinking about how you might do this? Response not required due to responses to other questions. 4. Over the past month, have you had these thoughts and had some intention of acting on them? Response not required due to responses to other questions. 5. Over the past month, have you started to work out or worked out the details of how to kill yourself? Response not required due to responses to other questions. 6. If yes, at any time in the past month did you intend to carry out this plan? Response not required due to responses to other questions. 7. In your lifetime, have you ever done anything, started to do anything, or prepared to do anything to end your life (for example, collected pills, obtained a gun, gave away valuables, went to the roof but didn't jump)? No 8. If YES, was this within the past 3 months? Response not required due to responses to other questions. RHS Screen - VS: RHS Screen Session Format: Face to Face Environmental Check Upon inquiry, the individual reports that the environment is safe to proceed. Informed Consent to Screen and Document The individual consents to proceed with screening. The individual consents to documentation of responses. PRIMARY SCREEN: In the past 12 months, how often did a current or former intimate partner (e.g., boyfriend, girlfriend, , , sexual partner): 1. Scream or curse at you Never 2. Insult or talk down to you Never 3. Threaten you with harm Never 4. Physically hurt you Never 5. Force or pressure you to have sexual contact against your will, or when you were unable to say no Never The HITS tool (items 1-4 above) is US copyright protected by Sam Fernandes MD, and the user has full rights to use it throughout the [place] system. PRIMARY SCREEN RESULT: The Primary Screen is NEGATIVE. The individual answered never to all forms of IPV above (i.e., answered never to all 5 items) The individual accepts education and/or resources: No EDUCATION: Other: Comments: Alcohol Use Screen (AUDIT-C) - V: Alcohol Screen: SCREEN FOR ALCOHOL (AUDIT-C) An alcohol screening test (AUDIT-C) was negative (score=0). 1. How often did you have a drink containing alcohol in the past year? Consider a drink to be a 12 ounce can or bottle of regular beer, 8 ounces of malt liquor, a 5 ounce glass of table wine, or a 1.5 ounce shot of liquor (like scotch, gin, or vodka). Never 2. How many drinks containing alcohol did you have on a typical day when you were drinking in the past year? Response not required due to responses to other questions. 3. How often did you have six or more drinks on one occasion in the past year? Response not required due to responses to other questions. Tobacco Use Screening - AT,DE,L,M,N,P,PH,PS,RT,S,U: The patient has never smoked cigarettes. The patient has never used other types of tobacco. Depression Screening - V: Perform PHQ-2 A PHQ-2 screen was performed. The score was 0 which is a negative screen for depression. Over the past two weeks, how often have you been bothered by the following problems? 1. Little interest or pleasure in doing things Not at all 2. Feeling down, depressed, or hopeless Not at all Homelessness/Food Insecurity Screen - DI,L,N,P,PH,PS,S,U: In the past 2 months, have you been living in stable housing that you own, rent, or stay in as part of a household? Yes - Living in stable housing. Are you worried or concerned that in the next 2 months you may NOT have stable housing that you own, rent, or stay in as part of a household? No - Not worried about housing near future The reports the following: Within the past 12 months, you worried whether your food would run out before you got money to buy more. Never true Within the past 12 months, the food you bought just didn't last and you didn't have money to get more. Never true Influenza Immunization - L,N,P,PH,U: No influenza vaccination was received during the recent influenza season. MOVE Weight Management: Most recent BMI: 32.1. educated on health risk of obesity and treatment is offered. Participation in a weight management program was considered/offered for this patient based on the current BMI score. Patient declines participation in a weight management program. Pain Assessment: - PAIN ASSESSMENT: .. Patient reports no pain at this visit. Pain Score = 0. Patient's self identified pain goal: 0 /adair/ CHRISSIE HENDRICKS LPN Signed: 10/20/2024 15:42 CHRISSIE HENDRICKS [facility]
--- OUTSIDE RECORDS SUMMARY | 2024-11-02 08:26 | XMS_ITS | Encounter Summary ---
Author Name [facility] Organization [facility] Address [address] [place] [address] Care Team Providers Care Telecommunications Support Name Role Phone MAXIMINO SCOTT Primary Care [...] Sanford's Name Patient's Relationship to Policy [facility] VISION VISION SPECT ERA VISIO N PLAN Jun 12, 2010 [id number] ANN MARIEMARTIYUNIEL SHIELDSM PATIENT Selected Encounter This section includes the information on record at ME for the Encounter. Date/Time Encounter Type Encounter Description Reason Pro vider Source Nov 02, 2024 01:26 PM Outpatient Encounter COMMUNITY CARE CONSULT IHE Encounter Template Text not used by ME Plan of Treatment: Future Appointments (+ 6 months) and Future Tests (+/- 45 days) The Plan of Treatment section includes future care activities for the patient from all [place] treatmentfacilities. This section includes future appointments and [...] 03, 2024 03:30 PM AMBULATORY - MEDICINE [facility] Nov 24, 2024 03:20 PM AMBULATORY - MEDICINE [facility] Dec 08, 2024 03:20 PM AMBULATORY - MEDICINE [facility] Dec 09, 2024 03:00 PM AM[facility]AT[facility] - MEDICINE [facility] Active, Pending, and Scheduled Orders This [...] data comes from all [place] treatment facilities. Test Date/Time Test Type Test Details Facility Name Oct 20, 2024 03:47 PM Consult Order [facility] 657A4 Cons Flute Polisher's Choice [facility] Results: +/- 30 days of the [...] Type Comment Oct 20, 2024 03:[facility] SERUM Specimen Type: SERUM No comment entered. Ordering Provider: MAXIMINO SCOTT Report Released Date/Time: Oct 20, 2024 03:23 PM Reporting Lab: [place] [facility] [address] [place] [address] Performing Lab: [place] [facility] [address] [place] [address] TSH 1.275 u[IU]/mL 0.47-5 Oct 20, 2024 03:24 PM [facility] PROST. SPECIFIC AG.(PB-STL) SERUM Specimen Ty pe: SERUM No comment entered. Ordering Provider: MAXIMINO SCOTT Report Released Date/Time: Oct 20, 2024 03:23 PM Reporting Lab: [place] [facility] [address] [place] [address] Performing Lab: [place] [facility] [address] [place] [address] PROST. SPECIFIC AG.(PB-STL) 0.77 ng/mL 0 -4 Oct 20, 2024 03:24 PM [facility] VITAMIN D, 25-HYDROXY SERUM Specimen Type: SE RUM No comment entered. Ordering Provider: MAXIMINO SCOTT Report Released Date/Time: Oct 20, 2024 03:23 PM Reporting Lab: [place] [facility] [address] [place] [address] Performing Lab: [place] [facility] [address] [place] [address] VITAMIN D, 25-HYDROXY 38.7 ng/mL 30-96 Oct 20, 2024 03:24 PM [facility] CHOLESTEROL PANEL (PB) PLASMA Specimen Type: P LASMA Comment: LDL calculation invalid when Triglyceride exceeds 250 mg/dl Ordering Provider: MAXIMINO SCOTT Report Released Date/Time: Oct 20, 2024 03:23 PM Reporting Lab: [place] [facility] [address] [place] [address] Performing Lab: [place] [facility] [address] [place] [address] CHOLESTEROL 244 mg/dL H 0-200 TRIGLYCERIDE 288 mg/dL H 0-150 CALCULATED LDL comment mg/dL HDL(New) 35.0 mg/dL L >40 HDL % OF TOTAL CHOLESTEROL (PB) 14.3 >25 DIRECT LDL(MA) 176.6 mg/dL H 0-99.9 Oct 20, 2024 03:24 PM [facility] HGA1C BLOOD Specimen Type: BLOOD No comment entered. Ordering Provider: MAXIMINO SCOTT Report Released Date/Time: Oct 20, 2024 03:23 PM Reporting Lab: [place] [facility] [address] [place] [address] Performing Lab: [place] [facility] [address] [place] [address] HGA1C 5.8 4.0-6.0 Oct 20, 2024 03:24 PM [facility] URINALYSIS (STL-PB) URINE Specimen Type: URIN E No comment entered. Ordering Provider: MAXIMINO SCOTT Report Released Date/Time: Oct 20, 2024 03:23 PM Reporting Lab: [place] [facility] [address] [place] [address] Performing Lab: [place] [facility] [address] [place] [address] URINE COLOR Yellow Yellow U.BILIRUBIN NEGATIVE mg/dL Negative U.PH 6.0 5.0-8.0 APPEARANCE CLEAR Clear U.NITRITE NEGATIVE mg/dL Negative URN.GLUCOSE NORMAL mg/dL Negative URN.PROTEIN NEGATIVE mg/dL URN.UROBILINOGEN NORMAL mg/dL Normal URN.BLOOD NEGATIVE mg/dL Negative-Trace URN.KETONES NEGATIVE mg/dL Negative-Trac e URN.LEUK.EST. NEGATIVE Negative-Trace URN.SPECIFIC GRAVITY 1.026 1.005-1.029 Oct 20, 2024 03:[address] [facility] COMPREHENSIVE METABOLIC PANEL PLASMA Specimen Type: PLASMA Comment: LDL calculation invalid when Triglyceride exceeds 250 mg/dl Ordering Provider: MAXIMINO SCOTT Report Released Date/Time: Oct 20, 2024 03:23 PM Reporting Lab: [place] [facility] [address] [place] [address] Performing Lab: [place] [facility] [address] [place] [id number] CREATININE 1.03 mg/dL 0.7-1.3 UREA NITROGEN 13 [...] 2020) 90 Oct 20, 2024 03:[address] [facility] CBC BLOOD Specimen Type: BLOOD No comment entered. Ordering Provider: MAXIMINO SCOTT Report Released Date/Time: Oct 20, 2024 03:23 PM Reporting Lab: [place] [facility] [address] [place] [address] Performing Lab: [place] [facility] [address] [place] [address] WBC 7.1 10*3/uL 3.6-11.2 RBC 5.16 10*6/uL [...] AUTO ABS 0.07 10*3/uL H 0. 00-0.05 Social History: Smoking Status (Most current) and [...] Date/Time Current Smoking Status Comment Facil ity Sep 03, 2007 09:38 AM LIFETIME NON-USER OF TOBACCO [facility] Radiology Reports: +/- 30 days of the [...] FOOT,LEFT 3 VIEWS OR MORE: CHRISTINE SUNSHINE [id number] -1975 M Exm Date: NOV 03, 2024@15:23 Req Phys: MAXIMINO SCOTT [facility] [place] [facility] (Req Img Loc: [facility] [place] Service: [place] [address] (Case [id number] COMPLETE) FOOT,LEFT 3 VIEWS OR MORE (RAD Detailed) CPT:55801 Proc Modifiers : LEFT Reason for Study: left foot pain Clinical History: reinjured yesterday. pain on dorsum of foot with flexion. mild swelling on lateral malleolus Report Status: Verified Date Reported: NOV 03, 2024 Date Verified: NOV 03, 2024 Corporate Law Specialist E-Sig: Report: Left foot 3 views. HISTORY: Left foot pain reinjured yesterday DATE: 11/03/2024 FINDINGS: No evidence of a fracture or dislocation. No bony destruction. Early degenerative changes interphalangeal joints. Spur posterior and plantar aspect calcaneus. Impression: 1. No acute bony change 2. Early degenerative changes interphalangeal joints 3. Spur posterior and plantar aspect calcaneus Primary Interpreting Staff: CLAIR GARIBAY, RADIOLOGIST (Corporate Law Specialist, no e-sig) /[facility] CLAIR GARIBAY [facility] Oct 20, 2024 03:43 PM ANKLE,LEFT,3 VIEWS : CHRISTINE SUNSHINE [id number] -1975 M Exm Date: OCT 20, 2024@15:43 Req Phys: MAXIMINO SCOTT Loc: [facility] [place] [facility] (Req Img Loc: [facility] [place] Service: [place] [address] (Case [id number] COMPLETE) ANKLE,LEFT,3 VIEWS (RAD Detailed) CPT:87277 Proc Modifiers : LEFT Reason for Study: left ankle pain Clinical History: bruising and tender on medial malleolus-injured two weeks ago Report Status: Verified Date Reported: OCT 21, 2024 Date Verified: OCT 21, 2024 Corporate Law Specialist E-Sig: Report: 3 views of the left ankle reveal no acute osseous or adjacent soft tissue abnormality. Impression: No acute process Primary Interpreting Staff: VELMA KENNEDY, RADIOLOGIST (Corporate Law Specialist, no e-sig) /[facility] Borden [facility] [place] [facility] Encounter Notes: All associated encounter notes This section contains the clinical notes associated to the Encounter. Date/Time Encounter Note(s) Provider Source Nov 02, 2024 01:26 PM LETTERS: LOCAL TITLE: COMMUNITY CARE-REFERRAL PB (AUTO-PRINT) STANDARD TITLE: LETTERS DATE OF NOTE: NOV 02, 2024@13:26:27 ENTRY DATE: NOV 02, 2024@::27 AUTHOR: JADA HANEY COSIGNER: URGENCY: STATUS: COMPLETED Christine Sunshine [address] [place], [place] [address] Dear CHRISTINE SUNSHINE, Your VA provider has referred you to a provider within the community for care. Your medical care for DERMATOLOGY has been authorized with the Community Care Provider listed below. DO NOT REPORT TO THE [facility] Provider info: An appointment has been scheduled for you on: Dec 09, 2024 03:00 PM Office Name: [facility] Address: [address] [place] [address] Address: [place] [address] Auth #: [id number] Referral Issue Date: 10/22/24 Expiration Date: 06/07/25 If you are unable to keep this appointment or the appointment is no longer needed, please contact the community provider above for notification/rescheduling and then call the [facility] [place] Community Care Office at [phone] Ext [phone]. If you need additional care/services not mentioned above, please contact your primary care provider for a new referral. Co-Payments: If you are required to pay a VA co-payment, you will be billed by the ME for each authorized visit that you attend. However, you are NOT REQUIRED to make co-payments to a Community Provider. Prescriptions: Your community provider may write a prescription related to the authorized care. If there is an immediate need for your prescriptions from your community care visit, you may be able to get up to a 14-day fill of your prescription at your own expense for the cost of the medication, and may seek reimbursement from the VA. If you require more than a 14-day supply or if the prescribed medication is not immediately needed, your community provider will send a prescription to a VA pharmacy so that the VA can provide you with your routine medication. In-network locations can be found at https://www.wa.gov/find-loc ations/ Medical Devices: Your community provider may recommend that medical devices, adapted equipment, or other items be provided for the treatment or rehabilitation of your medical condition. Veterans are generally required to obtain these items through the Prosthetics and Sensory Aids Service (PSAS) in your referring facility. Emergency/Inpatient Services: You, your community provider, or your family must provide notification within 72hr or ER visit and/or admission by [phone]. Thank you for the opportunity to serve you and for your service to our great nation! JADA Jha [facility] the Community [address] [place] [address] JADA HANEY [facility]
--- OUTSIDE RECORDS SUMMARY | 2024-11-03 10:30 | XMS_ITS | Encounter Summary ---
Author Name [facility] [place] [facility] [place] Address [address] [place] [address] Care Team Providers Care Oracle Iam Consultant Name Role Phone MAXIMINO SCOTT Primary Care [...] Sanford's Name Patient's Relationship to Policy Sanford [place] [facility] VISIO N PLAN Jun 12, 2010 [id number] YUNIEL SUNSHINE PATIENT Selected Encounter This section includes the information on record at [place] for the Encounter. Date/Time Encounter Type Encounter Description Reason Provider Source Nov 03, 2024 03:30 PM OFFICE O/P EST MOD 30 MIN PRIMARY CARE/MEDICINE ICD-10-CM M79.672 Pain in left foot ALMA SCOTT [facility] Encounter Template Text not used by [place] Assessments - Encounter Diagnoses This section includes the primary and secondary diagnoses documented for the Encounter. Date/Time Primary/Secondary Diagnosis Diagnosis Name Provider Source Nov 03, 2024 03:43 PM PRIMARY Pain in left foot [facility] Plan of Treatment: Future Appointments (+ 6 months) and Future Tests (+/- 45 days) The Plan of Treatment section includes future care activities for the patient from all [place] treatmentfacilities. This section includes future appointments and future orders which are active, pending or scheduled. Future Appointments This section includes appointments that were scheduled to occur 6 months from the date of the Encounter, up to a maximum of 20 appointments. The data comes from all [place] treatment facilities. Appointment Date/Time Appointment Type Appointme nt Facility Name Nov 24, 2024 03:20 PM AMBULATORY - MEDICINE [facility] Dec 08, 2024 03:20 PM AMBULATORY - MEDICINE [facility] Dec 09, 2024 03:00 PM [facility]ORY - MEDICINE [facility] Active, Pending, and Scheduled Orders This section includes a listing of several types of active, pending, and scheduled orders, including clinic medications orders, diagnostic test orders, procedure orders and consult orders; where the start date of the order is 45 days before the date of the Encounter or 45 days after the date of theEncounter. The data comes from all [facility]. Test Date/Time Test Type Test Details Facility Name Oct 20, 2024 03:47 PM Consult Order [facility] [id number] Cons [employer] Offbearer's Choice [facility] Lab Results: +/- 30 days of the encounter This section includes the Chemistry and Hematology Lab Results on record with [place] for the patient. Radiology Reports and Pathology Reports are provided separately, in subsequent sections. Lab Results This section contains the Chemistry/Hematology Results that were resulted 30 days before or 30 daysafter the date of the Encounter. Date/Time Source Result Type Result - Unit Interpretation Reference Range Specimen Type Comment [facility]24 03[facility]CIFIC [facility].(PB-STL) SERUM Specimen Ty pe: SERUM No comment entered. Ordering Provider: ABELINO SCOTT Report Released Date/Time: Oct 20, 2024 03:23 PM Reporting Lab: [place] [facility] [address] [place] [address] Performing Lab: [place] [facility] [address] [place] [address] PROST. SPECIFIC AG.(PB-STL) 0.77 ng/mL 0 -4 Oct 20, 2024 03:24 PM [facility] VITAMIN D, 25-HYDROXY SERUM Specimen Type: SE RUM No comment entered. Ordering Provider: MAXIMINO SCOTT Report Released Date/Time: Oct 20, 2024 03:23 PM Reporting Lab: [place] [facility] [address] [place] [address] Performing Lab: [place] [facility] [address] [place] [address] VITAMIN D, 25-HYDROXY 38.7 ng/mL 30-96 Oct 20, 2024 03:[address] [facility] TSH (MA-PB) SERUM Specimen Typ e: SERUM No comment entered. Ordering Provider: MAXIMINO SCOTT Report Released Date/Time: Oct 20, 2024 03:23 PM Reporting Lab: [place] [facility] [address] [place] [address] Performing Lab: [place] [facility] [address] [place] [address] TSH 1.275 u[IU]/mL 0.47-5 Oct 20, 2024 03:24 PM [facility] CHOLESTEROL PANEL (PB) PLASMA Specimen Type: P LASMA Comment: LDL calculation invalid when Triglyceride exceeds 250 mg/dl Ordering Provider: MAXIMINO SCOTT Report Released Date/Time: Oct 20, 2024 03:23 PM Reporting Lab: [place] [facility] [address] [place] [address] Performing Lab: [place] [facility] [address] [place] [address] CHOLESTEROL 244 mg/dL H 0-200 TRIGLYCERIDE 288 mg/dL H 0-150 CALCULATED LDL comment mg/dL HDL(New) 35.0 mg/dL L >40 HDL % OF TOTAL CHOLESTEROL (PB) 14.3 >25 DIRECT LDL(MA) 176.6 mg/dL H 0-99.9 Oct 20, 2024 03:24 PM [facility] HGA1C BLOOD Specimen Type: BLOOD No comment entered. Ordering Provider: MAXIMINO SCOTT Report Released Date/Time: Oct 20, 2024 03:23 PM Reporting Lab: [place] [facility] [address] [place] [address] Performing Lab: [place] [facility] [address] [place] [address] HGA1C 5.8 4.0-6.0 Oct 20, 2024 03:24 PM [facility] URINALYSIS (STL-PB) URINE Specimen Type: URIN E No comment entered. Ordering Provider: MAXIMINO SCOTT Report Released Date/Time: Oct 20, 2024 03:23 PM Reporting Lab: [place] [facility] [address] [place] [address] Performing Lab: [place] [facility] [facility] [address] [facility] [place] [facility] URINE COLOR Yellow Yellow U.BILIRUBIN NEGATIVE mg/dL Negative U.PH 6.0 5.0-8.0 APPEARANCE CLEAR Clear U.NITRITE NEGATIVE mg/dL Negative URN.GLUCOSE NORMAL mg/dL Negative URN.PROTEIN NEGATIVE mg/dL URN.UROBILINOGEN NORMAL mg/dL Normal URN.BLOOD NEGATIVE mg/dL Negative-Trace URN.KETONES NEGATIVE mg/dL Negative-Trac e URN.LEUK.EST. NEGATIVE Negative-Trace URN.SPECIFIC GRAVITY 1.026 1.005-1.029 Oct 20, 2024 03:24 PM [facility] COMPREHENSIVE METABOLIC PANEL PLASMA Specimen Type: PLASMA Comment: LDL calculation invalid when Triglyceride exceeds 250 mg/dl Ordering Provider: MAXIMINO SCOTT Report Released Date/Time: Oct 20, 2024 03:23 PM Reporting Lab: [facility] [facility] [address] [facility] [place] [facility] Performing Lab: [facility] [address] [place] [facility] CREATININE 1.03 mg/dL 0.7-1.3 UREA NITROGEN 13 [...] 2020) 90 Oct 20, 2024 03:24 PM [facility] CBC BLOOD Specimen Type: BLOOD No comment entered. Ordering Provider: MAXIMINO SCOTT Report Released Date/Time: Oct 20, 2024 03:23 PM Reporting Lab: [place] [facility] [address] [place] [address] Performing Lab: [place] [facility] [address] [place] [address] WBC 7.1 10*3/uL 3.6-11.2 RBC 5.16 10*6/uL [...] Pain Height Weight Body Mass Index Source Nov 03, 2024 03:13 PM 97.7 F 94 /min 127/81 mm[Hg] 16 /min 97 % 2 70.0 in 225.9 lb 32 [facility] Social History: Smoking Status (Most current) and Tobacco Use (All prior to encounter date) This section includes the most current, and the historical, smoking and tobacco- related health factors from the [place] facility where the Encounter took place. Current Smoking Status This section includes the most current smoking, or tobacco-related health factor, from the [place] facility where the Encounter took place. Date/Time Current Smoking Status Comment Sandra rose Oct 20, 2024 03:30 PM VA-TOBACCO NEVER USED CIGARETTES [place] [facility] Tobacco Use History This section includes a history of the smoking, or tobacco-related health factors, that were collected on or before the date of the Encounter. The data comes from the [place] facility where the Encounter took place. Date/Time Smoking Status/Tobacco Use Comment Loyd bartlett Oct 20, 2024 03:30 PM VA-TOBACCO NEVER [...] the Encounter. The data comes from all [place] treatment facilities. Date/Time Radiology Report Provider Source Nov 03, 2024 03:23 PM FOOT,LEFT 3 VIEWS OR MORE: CHRISTINE SUNSHINE [id number] -1975 M Exm Date: NOV 03, 2024@15:23 Req Phys: MAXIMINO SCOTT Loc: PB-[facility]CR[facility] PACT [place]AV[place]HEILA DIRECTOR [facility] (Req Img Loc: [facility] [place] Service: [place] [address] (Case [id number] COMPLETE) FOOT,LEFT 3 VIEWS OR MORE (RAD Detailed) CPT:83379 Proc Modifiers : LEFT Reason for Study: left foot pain Clinical History: reinjured yesterday. pain on dorsum of foot with flexion. mild swelling on lateral malleolus Report Status: Verified Date Reported: NOV 03, 2024 Date Verified: NOV 03, 2024 Steam Setter E-Sig: Report: Left foot 3 views. HISTORY: Left foot pain reinjured yesterday DATE: 11/03/2024 FINDINGS: No evidence of a fracture or dislocation. No bony destruction. Early degenerative changes interphalangeal joints. Spur posterior and plantar aspect calcaneus. Impression: 1. No acute bony change 2. Early degenerative changes interphalangeal joints 3. Spur posterior and plantar aspect calcaneus Primary Interpreting Staff: CLAIR GARIBAY, RADIOLOGIST (Steam Setter, no e-sig) /[facility] CLAIR GARIBAY [facility] Oct 20, 2024 03:43 PM ANKLE,LEFT,3 VIEWS : CHRISTINE SUNSHINE [id number] -1975 M Exm Date: OCT 20, 2024@15:43 Req Phys: MAXIMINO SCOTT Loc: [facility] [place] DIRECTOR [facility] (Req Img Loc: [facility] [place] Service: [place] [address] (Case [id number] COMPLETE) ANKLE,LEFT,3 VIEWS (RAD Detailed) CPT:20870 Proc Modifiers : LEFT Reason for Study: left ankle pain Clinical History: bruising and tender on medial malleolus-injured two weeks ago Report Status: Verified Date Reported: OCT 21, 2024 Date Verified: OCT 21, 2024 Steam Setter E-Sig: Report: 3 views of the left ankle reveal no acute osseous or adjacent soft tissue abnormality. Impression: No acute process Primary Interpreting Staff: VELMA KENNEDY, RADIOLOGIST (Steam Setter, no e-sig) /VELMA Borden [facility] Encounter Notes: All associated encounter notes This section contains the clinical notes associated to the Encounter. Date/Time Encounter Note(s) Provider Source Nov 03, 2024 03:31 PM PRIMARY CARE NURSI NG NOTE: LOCAL TITLE: PRIMARY CARE NURSING PROGRESS NOTE (TEXT) NURSING P STANDARD TITLE: PRIMARY CARE NURSING NOTE DATE OF NOTE: NOV 03, 2024@15:31 ENTRY DATE: NOV 03, 2024@15:31:34 AUTHOR: CHRISSIE HENDRICKSIGNER: URGENCY: STATUS: COMPLETED Established Patient CHRISTINE SUNSHINE IS A 49 YEAR OLD MALE BEING SEEN IN CLINIC NOV 03, 2024. == == REASON FOR VISIT: here today for c/o ongoing Left ankle pain x 3 weeks. Are you receiving care any where other than the [facility]? No HEALTH AND SURGICAL HISTORY: Does patient report using home oxygen? No CURRENT ACTIVE MEDICATIONS FOR REVIEW: If the list for review does not include a component, then it was not applicable to this patient. Allergies/ADRs (Tool #5) FACILITY ALLERGY/ADR -------- No Remote Allergy/ADR Data available for this patient [facility] No Known Allergies Med. Reconciliation (Tool #1) INCLUDED IN THIS LIST: Alphabetical list of active outpatient prescriptions dispensed from this [facility] (local) and dispensed from another VA or [facility] facility (remote) as well as inpatient orders (local pending and active), local clinic medications, locally documented non-VA medications, and local prescriptions that have or been discontinued in the past 90 days. Non-VA Meds Last Documented On: Data not found NOTE The display of VA prescriptions dispensed from another [place] or [facility] facility (remote) is limited to active outpatient prescription entries matched to National Drug File at the originating site and may not include some items such as investigational drugs, compounds, etc. NOT INCLUDED IN THIS LIST: Medications self-entered by the patient into personal health records (i.e. [facility]) are NOT included in this list. Non-VA medications documented outside this [place], remote inpatient orders (regardless of status) and remote clinic medications are NOT included in this list. The patient and provider must always discuss medications the patient is taking, regardless of where the medication was dispensed or obtained. OUTPT CELECOXIB 100MG CAP (Status = Discontinued) TAKE ONE CAPSULE BY MOUTH ONCE A DAY TAKE WITH FOOD. Rx# [id number] Last Released: 07/22/24 Qty/Days Supply: Rx Expiration Date: 10/02/24 Refills Remainin Indication: FOR PAIN AND INFLAMMATION OUTPT CELECOXIB 100MG CAP (Status = Active) TAKE ONE CAPSULE BY MOUTH ONCE A DAY TAKE WITH FOOD. Rx# [id number] Last Released: 10/22/24 Qty/Days Supply: Rx Expiration Date: 10/21/25 Refills Remainin Indication: FOR PAIN AND INFLAMMATION OUTPT HCTZ 12.5/LISINOPRIL 10MG TAB (Status = Discontinued) TAKE 1 TABLET BY MOUTH EVERY MORNING FOR HEART OR BLOOD PRESSURE Rx# [id number] Last Released: 07/23/24 Qty/Days Supply: Rx Expiration Date: 10/02/24 Refills Remainin OUTPT HCTZ 12.5/LISINOPRIL 10MG TAB (Status = Active) TAKE 1 TABLET BY MOUTH EVERY MORNING FOR HEART OR BLOOD PRESSURE Rx# [id number] Last Released: 10/22/24 Qty/Days Supply: Rx Expiration Date: 10/21/25 Refills Remainin OUTPT ROSUVASTATIN CA 20MG TAB (Status = Active) TAKE ONE-HALF TABLET BY MOUTH EVERY EVENING FOR HIGH CHOLESTEROL Rx# [id number] Last Released: Qt Supply: Rx Expiration Date: 10/30/25 Refills Remainin Indication: FOR HIGH CHOLESTEROL OUTPT SERTRALINE HCL 50MG TAB (Status = Active) TAKE ONE-HALF TABLET BY MOUTH EVERY MORNING FOR DEPRESSION Rx# [id number] Last Released: 08/24/24 Qty/ Supply: Rx Expiration Date: 08/20/25 Refills Remainin Indication: FOR DEPRESSION SUPPLIES PHARMACY TERMS AND POSSIBLE PATIENT ACTIONS INPT = [place] inpatient order IV = [place] intravenous medication OUTPT = [place] outpatient prescription PHARMACY POSSIBLE PATIENT TERMS EXPLANATION ACTIONS -------- ----- ACTIVE A prescription that can be If you have refills, filled at the local [place] pharmacy. you may request a refill of this prescription from your [place] pharmacy. CLINIC A medication you received during If you have questions a visit to a [place] clinic or about this medication emergency department. contact your [place] healthcare team. DISCONTINUED A prescription your provider has Contact your [facility] stopped. It is no longer healthcare team if you available to be sent to you or need more of this picked up at the [place] pharmacy medication. window. A prescription which is [...] the VA. Or, it may be an gbrc-edq-hwcaalr (OTC), herbal, dietary supplements or sample medication. [...] An active prescription that is Contact your [place] not scheduled to be filled yet. pharmacy [...] report since last visit? NO VITALS: TEMPERATURE: 97.7 F [36.5 C] (11/03/2024 15:13) BP: 127/81 (11/03/2024 15:13) RESP: 16 (11/03/2024 15:13) PULSE: 94 (11/03/2024 15:13) HT: 70.0 in [177.8 cm] (11/03/2024 15:13) WT: 225.9 lb [102.47 kg] (11/03/2024 15:13) BMI: 32.5 PAIN ASSESSMENT: (Most Recent Pain Score in Vitals Package: 2 (11/03/2024 15:13) ) The patient indicated that they and [...] chickenpox, or zoster in last 30 days. This patient's last pain assessment score was: 2 (11/03/2024 15:13). A detailed pain assessment showed the following: Pain characteristics (per patient's own words) Constant, Aching Location of current pain LEFT Ankle STRESS: Thank you for your service. Now let us serve you. At the [facility], we strive to provide you with exceptional [...] Not At All SPIRITUAL ASSESSMENT: Are there muslim practices or spiritual concerns you want the principal administrative clerk, your physician, and other health care team members to immediately know about? No Patient advised to call the clinic for any concerns, questions, or symptoms. Patient and/or caregiver verbalized understanding of plan of care. /adair/ CHRISSIE HENDRICKS LPN Signed: 11/03/2024 15:48 CHRISSIE HENDRICKS [facility] Nov 03, 2024 03:23 PM PRIMARY CARE PROGR ESS NOTE: LOCAL TITLE: PRIMARY CARE CLINIC PROGRESS NOTE PB STANDARD TITLE: PRIMARY CARE PROGRESS NOTE DATE OF NOTE: NOV 03, 2024@15:23 ENTRY DATE: NOV 03, 2024@15:23:45 AUTHOR: MAXIMINO SCOTTIGNER: URGENCY: STATUS: COMPLETED PROVIDER ASSESSMENT DATE & TIME:Oct@15:23 CHIEF COMPLAINT: Left foot pain. HISTORY OF PRESENT ILLNESS: reinjured left foot yesterday when he tripped and fell again. He had sprained his ankle two weeks ago. [place] states he has been wearing a thin compression sleeve on the ankle occasionally. He does not have one on it today. He fell yesterday and skinned his right knee and hit the top of his foot. He states he now has pain when flexing the foot and some mild swelling over the lateral side. is walking almost two miles a day at work. Active problems/med list pull up hand: 1) HLD - Hyperlipidemia (SNOMED CT 39593601) 2) Low back pain (SNOMED CT 677528778) 3) Elbow pain 4) Numbness of hand 5) Swelling of hand 6) HTN - Hypertension 7) Hearing Loss ([facility] [id number]) 8) Carpal tunnel 9) Fatty liver 10) [...] MORNING FOR HEART OR BLOOD PRESSURE 3) ROSUVASTATIN CA 20MG TAB TAKE ONE-HALF TABLET BY MOUTH EVERY ACTIVE EVENING Indication: FOR HIGH CHOLESTEROL 4) SERTRALINE HCL 50MG TAB TAKE ONE-HALF TABLET BY MOUTH EVERY ACTIVE MORNING Indication: FOR DEPRESSION REVIEW OF SYSTEMS: MUSCULOSKELETAL:left foot pain. SKIN: No rash, lesions, or infection PSYCH: No Depression or Anxiety. Not suicidal. PHYSICAL ASSESSMENT: VITAL SIGNS Pulse: 94 (11/03/2024 15:13) Blood Pressure: 127/81 (11/03/2024 15:13) Respiratory Rate: 16 (11/03/2024 15:13) Temperature: 97.7 F [36.5 C] (11/03/2024 15:13) Weight: 225.9 lb [102.47 kg] (11/03/2024 15:13) Height: 70.0 in [177.8 cm] (11/03/2024 15:13) Pain: 2 (11/03/2024 15:13) CARDIAC: Regular rate and rhythm without murmur. No edema. RESPIRATORY: CTA, BEBS GI: Abdomen soft,with ABS. MUSCULOSKELETAL:Left foot pain over dorsum of foot with tenderness with flexion only. has some mild swelling over the lateral malleolus. SKIN: [place] without rash or lesions. NEUROLOGICAL: The [place] is alert and oriented without distress. Affect appropriate. IMPRESSION: Left Foot Pain-current PLAN: [place] to wear ankle brace supplied by clinic. Ice to foot at night. Continue nsaids for pain. Discussed sprains can take up to 6 weeks without further injury to heal. Discussed rest is important for sprain. RTC if symptoms worsen or continue. Left foot xray appears negative in office and will call if radiologist over read is different from providers. Patient is advised this primary care clinic [...] Medications Reconciled. Time spent 30 minutes. /adair/ [facility] Signed: 11/03/2024 15:42 MAXIMINO SCOTT [facility]
--- OUTSIDE RECORDS SUMMARY | 2024-11-03 10:30 | XMS_ITS ---
Author Name [facility] [place] Address [address] [place] [id number] Care Team Providers Care Communication Arts Lecturer Name Role Phone MAXIMINO SCOTT Primary Care [...] Sanford's Name Patient's Relationship to Policy Sanford [facility] VISION VISION SPECT ERA VISIO N PLAN Jun 12, 2010 [id number] YUNIEL SUNSHINE PATIENT Selected Encounter This section includes the information on record at [place] for the Encounter. Date/Time Encounter Type Encounter Description Reason Provider Source Nov 03, 2024 03:30 PM Outpatient Encounter PRIMARY CARE/MEDICINE ABELINO SCOTT Encounter Template Text not used by [place] Plan of Treatment: Future Appointments (+ 6 months) and Future Tests (+/- 45 days) The Plan of Treatment section includes future care activities for the patient from all [place] treatmentfacilities. This section includes future appointments and future orders which are active, pending or scheduled. Future Appointments This section includes appointments that were scheduled to occur 6 months from the date of the Encounter, up to a maximum of 20 appointments. The data comes from all [place] treatment facilities. Appointment Date/Time Appointment Type Appointme nt Facility Name Nov 24, 2024 03:20 PM AMBULATORY - MEDICINE [facility] Dec 08, 2024 03:20 PM AMBULATORY - MEDICINE [facility] Dec 09, 2024 03:00 PM [facility]ORY - MEDICINE [facility] Active, Pending, and Scheduled Orders This section includes a listing of several types of active, pending, and scheduled orders, including clinic medications orders, diagnostic test orders, procedure orders and consult orders; where the start date of the order is 45 days before the date of the Encounter or 45 days after the date of theEncounter. The data comes from all [place] treatment facilities. Test Date/Time Test Type Test Details Facility Name Oct 20, 2024 03:47 PM Consult Order [facility]-DERMATOLOGY [id number] Cons Loom Winder Tender's Choice [facility] Lab Results: +/- 30 days of the encounter This section includes the Chemistry and Hematology Lab Results on record with [place] for the patient. Radiology Reports and Pathology Reports are provided separately, in subsequent sections. Lab Results This section contains the Chemistry/Hematology Results that were resulted 30 days before or 30 daysafter the date of the Encounter. Date/Time Source Result Type Result - Unit Interpretation Reference Range Specimen Type Comment Oct 20, 2024 03:24 PM [facility] PROST. SPECIFIC AG.(PB-STL) SERUM Specimen Ty pe: SERUM No comment entered. Ordering Provider: ABELINO SCOTT Report Released Date/Time: Oct 20, 2024 03:23 PM Reporting Lab: [place] [facility] [address] [place] [address] Performing Lab: [place] [facility] [address] [place] [address] PROST. SPECIFIC AG.(PB-STL) 0.77 ng/mL 0 -4 Oct 20, 2024 03:24 PM [facility] TSH (MA-PB) SERUM Specimen Typ e: SERUM No comment entered. Ordering Provider: MAXIMINO SCOTT Report Released Date/Time: Oct 20, 2024 03:23 PM Reporting Lab: [place] [facility] [address] [place] [address] Performing Lab: [place] [facility] [address] [place] [address] TSH 1.275 u[IU]/mL 0.47-5 Oct 20, 2024 03:24 PM [facility] VITAMIN D, 25-HYDROXY SERUM Specimen Type: SE RUM No comment entered. Ordering Provider: MAXIMINO SCOTT Report Released Date/Time: Oct 20, 2024 03:23 PM Reporting Lab: [place] [facility] [address] [place] [address] Performing Lab: [place] [facility] [address] [place] [address] VITAMIN D, 25-HYDROXY 38.7 ng/mL 30-96 Oct 20, 2024 03:24 PM [facility] CHOLESTEROL PANEL (PB) PLASMA Specimen Type: P LASMA Comment: LDL calculation invalid when Triglyceride exceeds 250 mg/dl Ordering Provider: MAXIMINO SCOTT Report Released Date/Time: Oct 20, 2024 03:23 PM Reporting Lab: [place] [facility] [address] [place] [address] Performing Lab: [place] [facility] [address] [place] [address] CHOLESTEROL 244 mg/dL H 0-200 TRIGLYCERIDE 288 mg/dL H 0-150 CALCULATED LDL comment mg/dL HDL(New) 35.0 mg/dL L >40 HDL % OF TOTAL CHOLESTEROL (PB) 14.3 >25 DIRECT LDL(MA) 176.6 mg/dL H 0-99.9 Oct 20, 2024 03:24 PM [facility] HGA1C BLOOD Specimen Type: BLOOD No comment entered. Ordering Provider: MAXIMINO SCOTT Report Released Date/Time: Oct 20, 2024 03:23 PM Reporting Lab: [place] [facility] [address] [place] [address] Performing Lab: [place] [facility] [address] [place] [address] HGA1C 5.8 4.0-6.0 Oct 20, 2024 03:24 PM [facility] URINALYSIS (STL-PB) URINE Specimen Type: URIN E No comment entered. Ordering Provider: MAXIMINO SCOTT Report Released Date/Time: Oct 20, 2024 03:23 PM Reporting Lab: [place] [facility] [address] [place] [address] Performing Lab: [place] [facility] [address] [place] [address] URINE COLOR Yellow Yellow U.BILIRUBIN NEGATIVE mg/dL Negative U.PH 6.0 5.0-8.0 APPEARANCE CLEAR Clear U.NITRITE NEGATIVE mg/dL Negative URN.GLUCOSE NORMAL mg/dL Negative URN.PROTEIN NEGATIVE mg/dL URN.UROBILINOGEN NORMAL mg/dL Normal URN.BLOOD NEGATIVE mg/dL Negative-Trace URN.KETONES NEGATIVE mg/dL Negative-Trac e URN.LEUK.EST. NEGATIVE Negative-Trace URN.SPECIFIC GRAVITY 1.026 1.005-1.029 Oct 20, 2024 03:24 PM [facility] COMPREHENSIVE METABOLIC PANEL PLASMA Specimen Type: PLASMA Comment: LDL calculation invalid when Triglyceride exceeds 250 mg/dl Ordering Provider: MAXIMINO SCOTT Report Released Date/Time: Oct 20, 2024 03:23 PM Reporting Lab: [place] [facility] [address] [place] [address] Performing Lab: [place] [facility] [address] [place] [address] CREATININE 1.03 mg/dL 0.7-1.3 UREA NITROGEN 13 [...] 2020) 90 Oct 20, 2024 03:24 PM [facility] CBC BLOOD Specimen Type: BLOOD No comment entered. Ordering Provider: MAXIMINO SCOTT Report Released Date/Time: Oct 20, 2024 03:23 PM Reporting Lab: [place] [facility] [address] [place] [address] Performing Lab: [place] [facility] [address] [place] [address] WBC 7.1 10*3/uL 3.6-11.2 RBC 5.16 10*6/uL [...] and tobacco- related health factors from the [place] facility where the Encounter took place. Current Smoking Status This section includes the most current smoking, or tobacco-related health factor, from the [place] facility where the Encounter took place. Date/Time Current Smoking Status Comment Facil ity Sep 03, 2007 09:38 AM LIFETIME NON-USER OF TOBACCO [facility] Radiology Reports: +/- 30 days [...] the Encounter. The data comes from all [place] treatment facilities. Date/Time Radiology Report Provider Source Nov 03, 2024 03:23 PM FOOT,LEFT 3 VIEWS OR MORE: CHRISTINE SUNSHINE [id number] -1975 M Exm Date: NOV 03, 2024@15:23 Req Phys: MAXIMINO SCOTT Loc: PB-MACRINA PACT VINNIE [employer]CRA[employer] STRUCTURAL FITTER WH (Req Img Loc: PB-XRAY [place] Service: [place] [address] (Case [id number] COMPLETE) FOOT,LEFT 3 VIEWS OR MORE (RAD Detailed) CPT:26055 Proc Modifiers : LEFT Reason for Study: left foot pain Clinical History: reinjured yesterday. pain on dorsum of foot with flexion. mild swelling on lateral malleolus Report Status: Verified Date Reported: NOV 03, 2024 Date Verified: NOV 03, 2024 Change Management Facilitator E-Sig: Report: Left foot 3 views. HISTORY: Left foot pain reinjured yesterday DATE: 11/03/2024 FINDINGS: No evidence of a fracture or dislocation. No bony destruction. Early degenerative changes interphalangeal joints. Spur posterior and plantar aspect calcaneus. Impression: 1. No acute bony change 2. Early degenerative changes interphalangeal joints 3. Spur posterior and plantar aspect calcaneus Primary Interpreting Staff: CLAIR GARIBAY, RADIOLOGIST (Change Management Facilitator, no e-sig) /[facility] CLAIR GARIBAY [facility] Oct 20, 2024 03:43 PM ANKLE,LEFT,3 VIEWS : CHRISTINE SUNSHINE [id number] -1975 M Exm Date: OCT 20, 2024@15:43 Req Phys: MAXIMINO SCOTT Loc: PB-MACRINA BIBT JAVONSHEILA AIRCRAFT STRUCTURAL FITTER WH (Req Img Loc: PB-[facility] [place] Service: [place] [address] (Case [id number] COMPLETE) ANKLE,LEFT,3 VIEWS (RAD Detailed) CPT:35494 Proc Modifiers : LEFT Reason for Study: left ankle pain Clinical History: bruising and tender on medial malleolus-injured two weeks ago Report Status: Verified Date Reported: OCT 21, 2024 Date Verified: OCT 21, 2024 Change Management Facilitator E-Sig: Report: 3 views of the left ankle reveal no acute osseous or adjacent soft tissue abnormality. Impression: No acute process Primary Interpreting Staff: VELMA KENNEDY RADIOLOGIST (Change Management Facilitator, no e-sig) /VELMA Borden [facility] Encounter Notes: All associated encounter notes This section contains the clinical notes associated to the Encounter. Date/Time Encounter Note(s) Provider Source Nov 04, 2024 02:37 PM PHYSICIAN LETTERS: LOCAL TITLE: TEST RESULT GENERAL LETTER STL STANDARD TITLE: PHYSICIAN LETTERS DATE OF NOTE: NOV 04, 2024@14:37 ENTRY DATE: NOV 04, 2024@14:37:26 AUTHOR: MAXIMINO SCOTT COSIGNER: URGENCY: STATUS: COMPLETED [facility] [address] [place] [address] NOV 04, 2024 CHRISTINE SUNSHINE [address] [place], [place] [address] Dear Christine Sunshine, I would like to update you on your recent test results. OTHER TEST RESULTS RADIOLOGY (NON-INVASIVE TEST RESULTS): Left Foot Xray: Report: Left foot 3 views. HISTORY: Left foot pain reinjured yesterday DATE: 11/03/2024 FINDINGS: No evidence of a fracture or dislocation. No bony destruction. Early degenerative changes interphalangeal joints. Spur posterior and plantar aspect calcaneus. Impression: 1. No acute bony change 2. Early degenerative changes interphalangeal joints 3. 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 Please continue your plan of care like we discussed and let me know if it is not improved. FUTURE APPOINTMENTS: 11/24/2024 15:20 PB-MACRINA CH[facility]O 12/08/2024 15:20 [facility] 12/09/2024 15:00 [facility] 10/20/2025 15:00 PB-MACRINA PACT VINNIE ARENAS Sincerely, Maximino Scott, ANVIL WORKER-[facility] JONG,CHRISTINE SCOTT,MAXIMINO Ngo [facility]
--- OUTSIDE RECORDS SUMMARY | 2024-11-08 10:15 | XMS_ITS ---
Author Name [facility] [place] Organization [place] Address [address] [place] [address] Care Team Providers Care Form Layer Name Role Phone MAXIMINO SCOTT Primary Care [...] Sanford's Name Patient's Relationship to Policy Sanford [facility] VISION VISION SPECT ERA VISIO N PLAN Jun 12, 2010 [id number] ANN MARIEMARTIYUNIEL SHIELDSM PATIENT Selected Encounter This section includes the information on record at [place] for the Encounter. Date/Time Encounter Type Encounter Description Reason Pro vider Source Nov 08, 2024 03:15 PM Outpatient Encounter TELEPHONE PRIMARY CARE IHE Encounter Template Text not used by [...] 24, 2024 03:20 PM AMBULATORY - MEDICINE [facility] Dec 08, 2024 03:20 PM AMBULATORY - MEDICINE [facility] Dec 09, 2024 03:00 PM AMBULATORY - MEDICINE [facility] Active, Pending, and Scheduled Orders This section includes a listing of several types of active, pending, and scheduled orders, including clinic medications orders, diagnostic test orders, procedure orders and consult orders; where the start date of the order is 45 days before the date of the Encounter or 45 days after the date of theEncounter. The data comes from all [place] treatment facilities. Test Date/Time Test Type Test Details Facility Name Oct 20, 2024 03:47 PM Consult Order REPLACED [facility]-DERMATOLOGY [id number] Cons Propeller Mechanic's Choice [facility] Lab Results: +/- 30 days of the encounter This section includes the Chemistry and Hematology Lab Results on record with [place] for the patient. Radiology Reports and Pathology Reports are provided separately, in subsequent sections. Lab Results This section contains the Chemistry/Hematology Results that were resulted 30 days before or 30 daysafter the date of the Encounter. Date/Time Source Result Type Result - Unit Interpretation Reference Range Specimen Type Comment Oct 20, 2024 03:24 PM [facility] TSH (MA-PB) SERUM Specimen Type: SERUM No comment entered. Ordering Provider: MAXIMINO SCOTT Report Released Date/Time: Oct 20, 2024 03:23 PM Reporting Lab: [place] [facility] [address] [place] [address] Performing Lab: [place] [facility] [address] [place] [address] TSH 1.275 u[IU]/mL 0.47-5 Oct 20, 2024 03:24 PM [facility] PROST. SPECIFIC AG.(PB-STL) SERUM Specimen Ty pe: SERUM No comment entered. Ordering Provider: MAXIMINO SCOTT Report Released Date/Time: Oct 20, 2024 03:23 PM Reporting Lab: [place] [facility] [address] [place] [address] Performing Lab: [place] [facility] [address] [place] [address] PROST. SPECIFIC AG.(PB-STL) 0.77 ng/mL 0 -4 Oct 20, 2024 03:24 PM [facility] VITAMIN D, 25-HYDROXY SERUM Specimen Type: SE RUM No comment entered. Ordering Provider: MAXIMINO SCOTT Report Released Date/Time: Oct 20, 2024 03:23 PM Reporting Lab: [place] [facility] [address] [place] [address] Performing Lab: [place] [facility] [address] [place] [address] VITAMIN D, 25-HYDROXY 38.7 ng/mL 30-96 Oct 20, 2024 03:24 PM [facility] HGA1C BLOOD Specimen Type: BLOOD No comment entered. Ordering Provider: MAXIMINO SCOTT Report Released Date/Time: Oct 20, 2024 03:23 PM Reporting Lab: [place] [facility] [address] [place] [address] Performing Lab: [place] [facility] [address] [place] [address] HGA1C 5.8 4.0-6.0 Oct 20, 2024 03:24 PM [facility] URINALYSIS (STL-PB) URINE Specimen Type: URIN E No comment entered. Ordering Provider: MAXIMINO SCOTT Report Released Date/Time: Oct 20, 2024 03:23 PM Reporting Lab: [place] [facility] [address] [place] [address] Performing Lab: [place] [facility] [address] [place] [address] URINE COLOR Yellow Yellow U.BILIRUBIN NEGATIVE mg/dL Negative U.PH 6.0 5.0-8.0 APPEARANCE CLEAR Clear U.NITRITE NEGATIVE mg/dL Negative URN.GLUCOSE NORMAL mg/dL Negative URN.PROTEIN NEGATIVE mg/dL URN.UROBILINOGEN NORMAL mg/dL Normal URN.BLOOD NEGATIVE mg/dL Negative-Trace URN.KETONES NEGATIVE mg/dL Negative-Trac e URN.LEUK.EST. NEGATIVE Negative-Trace URN.SPECIFIC GRAVITY 1.026 1.005-1.029 Oct 20, 2024 03:24 PM [facility] CHOLESTEROL PANEL (PB) PLASMA Specimen Type: P LASMA Comment: LDL calculation invalid when Triglyceride exceeds 250 mg/dl Ordering Provider: MAXIMINO SCOTT Report Released Date/Time: Oct 20, 2024 03:23 PM Reporting Lab: [place] [facility] [address] [place] [address] Performing Lab: [place] [facility] [address] [place] [address] CHOLESTEROL 244 mg/dL H 0-200 TRIGLYCERIDE 288 mg/dL H 0-150 CALCULATED LDL comment mg/dL HDL(New) 35.0 mg/dL L >40 HDL % OF TOTAL CHOLESTEROL (PB) 14.3 >25 DIRECT LDL(MA) 176.6 mg/dL H 0-99.9 Oct 20, 2024 03:24 PM [facility] COMPREHENSIVE METABOLIC PANEL PLASMA Specimen Type: PLASMA Comment: LDL calculation invalid when Triglyceride exceeds 250 mg/dl Ordering Provider: MAXIMINO SCOTT Report Released Date/Time: Oct 20, 2024 03:23 PM Reporting Lab: [place] [facility] [address] [place] [address] Performing Lab: [place] [facility] [address] [place] [address] CREATININE 1.03 mg/dL 0.7-1.3 UREA NITROGEN 13 [...] 2020) 90 Oct 20, 2024 03:24 PM [facility] CBC BLOOD Specimen Type: BLOOD No comment entered. Ordering Provider: MAXIMINO SCOTT Report Released Date/Time: Oct 20, 2024 03:23 PM Reporting Lab: [place] [facility] [address] [place] [address] Performing Lab: [place] [facility] [address] [place] [address] WBC 7.1 10*3/uL 3.6-11.2 RBC 5.16 10*6/uL [...] 2007 09:38 AM LIFETIME NON-USER OF TOBACCO [facility] Radiology Reports: +/- 30 days [...] FOOT,LEFT 3 VIEWS OR MORE: CHRISTINE SUNSHINE [id number] -1975 M Exm Date: NOV 03, 2024@15:23 Req Phys: MAXIMINO SCOTT Loc: PB-MACRINA PACT ANELOT TANK PUMPER PANELBOARD WH (Req Img Loc: PB-XRAY [place] Service: [place] [address] (Case [id number] COMPLETE) FOOT,LEFT 3 VIEWS OR MORE (RAD Detailed) CPT:93080 Proc Modifiers : LEFT Reason for Study: left foot pain Clinical History: reinjured yesterday. pain on dorsum of foot with flexion. mild swelling on lateral malleolus Report Status: Verified Date Reported: NOV 03, 2024 Date Verified: NOV 03, 2024 Channel Opener Outsoles E-Sig: Report: Left foot 3 views. HISTORY: Left foot pain reinjured yesterday DATE: 11/03/2024 FINDINGS: No evidence of a fracture or dislocation. No bony destruction. Early degenerative changes interphalangeal joints. Spur posterior and plantar aspect calcaneus. Impression: 1. No acute bony change 2. Early degenerative changes interphalangeal joints 3. Spur posterior and plantar aspect calcaneus Primary Interpreting Staff: CLAIR GARIBAY, RADIOLOGIST (Channel Opener Outsoles, no e-sig) /CLAIR Grimm [facility] Oct 20, 2024 03:43 PM ANKLE,LEFT,3 VIEWS : CHRISTINE SUNSHINE [id number] -1975 M Exm Date: OCT 20, 2024@15:43 Req Phys: MAXIMINO SCOTT Loc: PB-MACRINA PACT JAVONSHEILA TANK PUMPER PANELBOARD WH (Req Img Loc: PB-XRAY [place] Service: [place] [address] (Case [id number] COMPLETE) ANKLE,LEFT,3 VIEWS (RAD Detailed) CPT:32855 Proc Modifiers : LEFT Reason for Study: left ankle pain Clinical History: bruising and tender on medial malleolus-injured two weeks ago Report Status: Verified Date Reported: OCT 21, 2024 Date Verified: OCT 21, 2024 Channel Opener Outsoles E-Sig: Report: 3 views of the left ankle reveal no acute osseous or adjacent soft tissue abnormality. Impression: No acute process Primary Interpreting Staff: VELMA KENNEDY, RADIOLOGIST (Channel Opener Outsoles, no e-sig) /VELMA [facility] Encounter Notes: All associated encounter notes This section contains the clinical notes associated to the Encounter. Date/Time Encounter Note(s) Provider Source Nov 08, 2024 03:15 PM TELEPHONE ENCOUNTE R NOTE: LOCAL TITLE: TELEPHONE NOTE STANDARD TITLE: TELEPHONE ENCOUNTER NOTE DATE OF NOTE: NOV 08, 2024@15:15 ENTRY DATE: NOV 08, 2024@15:15:41 AUTHOR: CHRISSIE HENDRICKS EXP COSIGNER: URGENCY: STATUS: COMPLETED Called and reviewed Test Result letter. voiced understanding. Davis proceeds to states he is going to be coming into the clinic in a little bit . After inquiring if there was something i could assit with, he states that he has dislocated his shoulder and wanted to see if Dr. Lizama could put it back in place. Advised that Dr. Lizama is not in today but that he maybe he should call the 800 Tele emergency number or go to the ER as they could offer immediate needs such as medication and in depth imaging if needed. He agreed and states he will call. Provided the number. /adair/ CHRISSIE HENDRICKS LPN Signed: 11/08/2024 15:19 CHRISSIE HENDRICKS [facility]
--- NOTE | 2024-11-08 15:53 | XRR_ITS ---
PROCEDURE INFORMATION: Exam: XR Right Shoulder Exam date and time: 11/08/2024 4:00 PM Age: 49 years old Clinical indication: Pain; Shoulder; Right; No specified injury; Additional info: Injnury TECHNIQUE: Imaging protocol: Radiologic exam of the right shoulder. Views: 2 or more views. COMPARISON: CT angio chest PE protcl [id number] 05/08/2024 12:17 PM FINDINGS: Bones/joints: No acute fracture or dislocation. Soft tissues: Normal. XR/XR shoulder RT min 2V* [id number] IMPRESSION: No acute osseous findings.
--- OUTSIDE RECORDS SUMMARY | 2024-11-08 16:00 | XMS_ITS | Continuity of Care Document ---
Author Name [facility] Organization [facility] Care Team Providers Care Game Advisor Name Role Phone [facility] Unavailable Unavailable Problems Combined list of problems from Department of Defense and Veterans Affairs facilities. It does not include entries that were removed or entered in error. Problem Status Onset Date Problem Type Date of Resolution Comments Source Carpal tunnel Active Condition [facility] Elbow pain Active Condition [facility] Exposure to potentially hazardous substance Active Condition [facility] Fat[facility] liver Active Condition [facility] Hearing Loss (SCT [id number]) Active Condition [facility] HLD - Hyperlipidemia (SNOMED CT 38744837) Active Condition [place] [facility] HTN - Hypertension Active Condition [place] [facility] Low back pain (SNOMED CT 883355893) Active Condition [place] [facility] Lumbar spondylosis Active Condition [facility] Numbness of hand Active Condition [place] [facility] Sciatica Active Condition [facility] Scoliosis of lumbar spine Active Condition [facility] Swelling of hand Active Condition [place] [facility] Tinnitus Active Condition [facility] Acute allergic serous otitis media (ICD-9-CM 381.04) Inactive Condition 05/30/2016 [place] [facility] Ankle sprain (ICD-9-CM 845.09) Inactive Condition 05/30/2016 [facility] [place] Anxiety Neuroses (ICD-9-CM 300.00) Inactive Condition 05/30/2016 [place] [facility] Arrhythmia * (ICD-9-CM 427.9) Inactive Condition 05/30/2016 [place] [facility] Back Pain (ICD-9-CM 724.5) Inactive Condition 05/30/2016 [place] [facility] Chronic diarrhea of unknown origin (SNOMED CT 71994133) Inactive Condition 05/30/2016 [facility] Chronic mastoiditis (ICD-9-CM 383.1) Inactive Condition 05/30/2016 [place] [facility] Cough Inactive Condition 05/19/2019 [place] [facility] Disability Examination (ICD-9-CM V68.01) Inactive Condition 05/30/2016 [place] [facility] Hyperlipidemia * (ICD-9-CM 272.4) Inactive Condition 05/30/2016 [place] [facility] Knee Pain Inactive Condition 05/30/2016 [place] [facility] Laboratory Examination Ordered as part of a Routine General Medical Examination Inactive Condition 05/30/2016 [place] [facility] LBP - Low back pain (SNOMED CT 677313115) Inactive Condition 05/09/2020 [facility] Loose stools Inactive Condition 05/19/2019 [place] [facility] Low Back Pain * (ICD-9-CM 724.2) Inactive Condition 05/30/2016 [place] [facility] Migraine * (ICD-9-CM 346.90) Inactive Condition 05/30/2016 [place] [facility] [place]-Schlatter Disease (ICD-9-CM 732.4) Inactive Condition 05/30/2016 [place] [facility] Other disorders of ear (ICD-9-CM 388.8) Inactive Condition 05/30/2016 [place] [facility] Other psychological or physical stress (ICD-9-CM V62.89) Inactive Condition 05/30/2016 [place] [facility] Parent-Child Relational Problem (DSM-IV V61.20/ICD-9-CM V61.20) Inactive Condition 05/30/2016 [place] [facility] Routine General Medical Examination at a Health Care Facility * (ICD-9-CM V70.0) Inactive Condition 05/30/2016 [place] [facility] Spondylolisthesis Inactive Condition 05/30/2016 [place] [facility] Tendon Injuries * (ICD-9-CM 727.9) Inactive Condition 05/30/2016 [place] [facility] Tinnitus * (ICD-9-CM 388.30) Inactive Condition 05/30/2016 [place] [facility] Wrist sprain (ICD-9-CM 842.09) Inactive Condition 05/30/2016 [place] [facility] Diagnosis: ICD-10-CM M79.672 Pain in left foot Active Diagnosis [facility] Diagnosis: ICD-10-CM Z00.00 Encntr for general adult medical exam w/o abnormal findings Active Diagnosis [facility] Diagnosis: ICD-10-CM M99.02 Segmental and somatic dysfunction of thoracic region Active Diagnosis [facility] Diagnosis: ICD-10-CM F32.A Depression, unspecified Active Diagnosis [facility] Diagnosis: ICD-10-CM S60.459A Superficial foreign body of unspecified finger, init encntr Active Diagnosis [facility] Diagnosis: ICD-10-CM R05.1 Acute cough Active Diagnosis [facility] Diagnosis: ICD-10-CM Z46.1 Encounter for fitting and adjustment of hearing aid Active Diagnosis [place] [facility] Diagnosis: ICD-10-CM H93.13 Tinnitus, bilateral Active Diagnosis [place] [facility] Medications Combined list of outpatient medications from Department of Defense and Veterans Affairs facilities.Medications provided include 1) outpatient medications from the last 15 months, and 2) patient-reported medications. Medication Details Route Status Patient Instructions Prescription Expires Prescription Number Last Dispense Date Ordering Provider Order Date Order Qty Source CELECOXIB (U/D) 100 MG ORAL CAP TAKE ONE CAPSULE BY MOUTH ONCE A DAY TAKE WITH FOOD. 10/02/2024 [id number] MAXIMINO SCOTT [address] [place] [address] Divisio n CELECOXIB 100MG CAP TAKE ONE CAPSULE BY MOUTH ONCE A DAY TAKE WITH FOOD. ORAL ACTIVE 10/21/2025 [id number] Dusty SCOTT R [address] [place] [address] [facility] CELECOXIB 100MG CAP TAKE ONE CAPSULE BY MOUTH ONCE A DAY TAKE WITH FOOD. ORAL DISCONT INUED 10/02/2024 [id number] 5 Dusty SCOTT R [address] [place] [address] [facility] HYDROCHLORO THIAZIDE 12.5MG/MARIA ISABEL NOPRIL 10MG TAB TAKE 1 TABLET BY MOUTH EVERY MORNING FOR HEART OR BLOOD PRESSURE ORAL ACTIVE 10/21/2025 [id number] 5 Dusty SCOTT R 2024 [address] [place] [facility] HYDROCHLORO THIAZIDE 12.5MG/MARIA ISABEL NOPRIL 10MG TAB TAKE 1 TABLET BY MOUTH EVERY MORNING FOR HEART OR BLOOD PRESSURE ORAL DISCONT INUED 10/02/2024 [id number] 5 Dusty SCOTT R [address] [place] [address] [facility] HYDROCHLORO THIAZIDE 12.5MG/MARIA ISABEL NOPRIL 10MG TAB TAKE 1 TABLET BY MOUTH EVERY MORNING FOR HEART OR BLOOD PRESSURE ORAL DISCONT INUED 12/01/2023 [id number] 4 Dusty SCOTT R [address] [place] [address] [facility] LISINOPRIL/ HCTZ 10 MG-12.5 MG ORAL TAB TAKE 1 TABLET BY MOUTH EVERY MORNING FOR HEART OR BLOOD PRESSURE 10/02/2024 [id number] MAXIMINO SCOTT [address] [place] [address] Divisio n LISINOPRIL/ HCTZ 10 MG-12.5 MG ORAL TAB TAKE 1 TABLET BY MOUTH EVERY MORNING FOR HEART OR BLOOD PRESSURE Discont inued 12/01/2023 [id number] MAXIMINO SCOTT 2023 [address] [facility] Divisio n ROSUVASTATI N CA 20MG TAB TAKE ONE-HALF TABLET BY MOUTH EVERY EVENING FOR HIGH CHOLESTE ROL ORAL ACTIVE 10/30/2025 [id number] 5 Dusty SCOTT [address] [place] [address] [facility] SERTRALINE HCL 50MG TAB TAKE ONE-HALF TABLET BY MOUTH EVERY MORNING FOR DEPRESSI ON ORAL ACTIVE 08/20/2025 [id number] 5 Dusty SCOTT R [address] [place] [address] [facility] Allergies, Adverse Reactions, Alerts Combined list of allergies from Department of Defense and Veterans Affairs facilities. It does not include entries that were removed or entered in error. Substance Category Reaction Severity Reaction type Status Date Reported Comments Source No Known Allergies Drug allergy (disorder) active 12/23/2011 [facility] Immunizations Combined list of available immunizations from the Department of Defense and Veterans Affairs facilities. Immunization Series Date Given Administered By Site Reaction Lot Number CVX Code Drug Floor Plan Adjuster Status Comments Source TDAP 2024 PALOMA LEIJA SHANNAN LEFT DELTO ID [id number] 115 complet ed [facility] HEP A, ADULT 1 2018 52 complet ed HISTORICA L INFORMATI ON - [facility] 1 2013 03 complet ed HISTORICA L INFORMATI ON - FROM OTHER REGISTRY, [facility] DIVISIO N TDAP 2012 115 complet ed Right Deltoid [facility] TD(ADULT) UNSPECIFIED FORMULATION 1997 139 complet ed [facility] DIVISIO N Results Combined list of recent chemistry, hematology and other laboratory results from Department of Defense and Veterans Affairs, ranging from 15 months to all on record, depending upon the facility. Order Name Results Value Reference Range Date Interpretation Specimen Comments Source TSH (MA-PB) THYROTROPIN [UNITS/VOLU ME] IN SERUM OR PLASMA 1.275 u[IU]/mL 0.47 - 5 10/20 Specimen Type: SERUM No comment entered. Ordering Provider: PRECIOUS SCOTT Report Released Date/Time: Oct 20, 2024 03:23 PM Reporting Lab: [place] [facility] [address] [place] [address] Performing Lab: [place] [facility] [address] [place] [address] [facility] VITAMIN D, 25-HYDROX Y 25-HYDROXYV ITAMIN D3 [MASS/VOLUM E] IN SERUM OR PLASMA 38.7 ng/mL 30 - 96 10/20 Specimen Type: SERUM No comment entered. Ordering Provider: PRECIOUS SCOTT Report Released Date/Time: Oct 20, 2024 03:23 PM Reporting Lab: [place] [facility] [address] [place] [address] Performing Lab: [place] [facility] [address] [place] [address] [facility] PROST. SPECIFIC AG.(PB-ST L) PROSTATE SPECIFIC AG [MASS/VOLUM E] IN SERUM OR PLASMA 0.77 ng/mL 0 - 4 10/20 Specimen Type: SERUM No comment entered. Ordering Provider: PRECIOUS SCOTT Report Released Date/Time: Oct 20, 2024 03:23 PM Reporting Lab: [place] [facility] [address] [place] [address] Performing Lab: [place] [facility] [address] [place] [address] [facility] CHOLESTER OL PANEL (PB) CHOLESTEROL [MASS/VOLUM E] IN SERUM OR PLASMA 244 mg/dL 0 - 200 10/20 H Specimen Type: PLASMA Comment: LDL calculation invalid when Triglycerid e exceeds 250 mg/dl Ordering Provider: PRECIOUS SCOTT Report Released Date/Time: Oct 20, 2024 03:23 PM Reporting Lab: [place] [facility] [address] [place] [address] Performing Lab: [place] [facility] [address] [place] [address] [facility] CHOLESTER OL PANEL (PB) TRIGLYCERID E [MASS/VOLUM E] IN SERUM OR PLASMA 288 mg/dL 0 - 150 10/20 H Specimen Type: PLASMA Comment: LDL calculation invalid when Triglycerid e exceeds 250 mg/dl Ordering Provider: PRECIOUS SCOTT Report Released Date/Time: Oct 20, 2024 03:23 PM Reporting Lab: [place] [facility] [address] [place] [address] Performing Lab: [place] [facility] [address] [place] [address] [facility] CHOLESTER OL PANEL (PB) CHOLESTEROL IN LDL [MASS/VOLUM E] IN SERUM OR PLASMA BY CALCULATION commentm g/dL 10/20 Specimen Type: PLASMA Comment: LDL calculation invalid when Triglycerid e exceeds 250 mg/dl Ordering Provider: PRECIOUS SCOTT Report Released Date/Time: Oct 20, 2024 03:23 PM Reporting Lab: [place] [facility] [address] [place] [address] Performing Lab: [place] [facility] [address] [place] [address] [facility] CHOLESTER OL PANEL (PB) CHOLESTEROL IN HDL [MASS/VOLUM E] IN SERUM OR PLASMA 35.0 mg/dL 40 10/20 L Specimen Type: PLASMA Comment: LDL calculation invalid when Triglycerid e exceeds 250 mg/dl Ordering Provider: PRECIOUS SCOTT Report Released Date/Time: Oct 20, 2024 03:23 PM Reporting Lab: [place] [facility] [address] [place] [address] Performing Lab: [place] [facility] [address] [place] [address] [facility] CHOLESTER OL PANEL (PB) CHOLESTEROL IN HDL/CHOLEST JACIEL.TOTAL [MASS RATIO] IN SERUM OR PLASMA 14.3 25 10/20 Specimen Type: PLASMA Comment: LDL calculation invalid when Triglycerid e exceeds 250 mg/dl Ordering Provider: PRECIOUS SCOTT Report Released Date/Time: Oct 20, 2024 03:23 PM Reporting Lab: [place] [facility] [address] [place] [address] Performing Lab: [place] [facility] [address] [place] [address] [facility] CHOLESTER OL PANEL (PB) CHOLESTEROL IN LDL [MASS/VOLUM E] IN SERUM OR PLASMA BY DIRECT ASSAY 176.6 mg/dL 0 - 99.9 10/20 H Specimen Type: PLASMA Comment: LDL calculation invalid when Triglycerid e exceeds 250 mg/dl Ordering Provider: PRECIOUS SCOTT Report Released Date/Time: Oct 20, 2024 03:23 PM Reporting Lab: [place] [facility] [address] [place] [address] Performing Lab: [place] [facility] [address] [place] [address] [facility] HGA1C HEMOGLOBIN A1C/HEMOGLO BIN.TOTAL IN BLOOD 5.8 4.0 - 6.0 10/20 Specimen Type: BLOOD No comment entered. Ordering Provider: PRECIOUS SCOTT Report Released Date/Time: Oct 20, 2024 03:23 PM Reporting Lab: [place] [facility] [address] [place] [address] Performing Lab: [place] [facility] [address] [place] [address] [facility] COMPREHEN SIVE METABOLIC PANEL CREATININE [MASS/VOLUM E] IN SERUM OR PLASMA 1.03 mg/dL 0.7 - 1.3 10/20 Specimen Type: PLASMA Comment: LDL calculation invalid when Triglycerid e exceeds 250 mg/dl Ordering Provider: PRECIOUS SCOTT R Report Released Date/Time: Oct 20, 2024 03:23 PM Reporting Lab: [place] [facility] [address] [place] [address] Performing Lab: [place] [facility] [address] [place] [address] [facility] COMPREHEN SIVE METABOLIC PANEL UREA NITROGEN [MASS/VOLUM E] IN SERUM OR PLASMA 13 mg/dL 9 - 25 10/20 Specimen Type: PLASMA Comment: LDL calculation invalid when Triglycerid e exceeds 250 mg/dl Ordering Provider: PRECIOUS SCOTT Report Released Date/Time: Oct 20, 2024 03:23 PM Reporting Lab: [place] [facility] [address] [place] [address] Performing Lab: [place] [facility] [address] [place] [address] [facility] COMPREHEN SIVE METABOLIC PANEL GLUCOSE [MASS/VOLUM E] IN SERUM OR PLASMA 94 mg/dL 72 - 99 10/20 Specimen Type: PLASMA Comment: LDL calculation invalid when Triglycerid e exceeds 250 mg/dl Ordering Provider: PRECIOUS SCOTT Report Released Date/Time: Oct 20, 2024 03:23 PM Reporting Lab: [place] [facility] [address] [place] [address] Performing Lab: [place] [facility] [address] [place] [address] [facility] COMPREHEN SIVE METABOLIC PANEL SODIUM [MOLES/VOLU ME] IN SERUM OR PLASMA 139 meq/L 136 - 145 10/20 Specimen Type: PLASMA Comment: LDL calculation invalid when Triglycerid e exceeds 250 mg/dl Ordering Provider: PRECIOUS SCOTT Report Released Date/Time: Oct 20, 2024 03:23 PM Reporting Lab: [place] [facility] [address] [place] [address] Performing Lab: [place] [facility] [address] [place] [address] [facility] COMPREHEN SIVE METABOLIC PANEL POTASSIUM [MOLES/VOLU ME] IN SERUM OR PLASMA 4.0 meq/L 3.5 - 5 10/20 Specimen Type: PLASMA Comment: LDL calculation invalid when Triglycerid e exceeds 250 mg/dl Ordering Provider: PRECIOUS SCOTT Report Released Date/Time: Oct 20, 2024 03:23 PM Reporting Lab: [place] [facility] [address] [place] [address] Performing Lab: [place] [facility] [address] [place] [address] [facility] COMPREHEN SIVE METABOLIC PANEL CHLORIDE [MOLES/VOLU ME] IN SERUM OR PLASMA 103 meq/L 98 - 107 10/20 Specimen Type: PLASMA Comment: LDL calculation invalid when Triglycerid e exceeds 250 mg/dl Ordering Provider: PRECIOUS SCOTT Report Released Date/Time: Oct 20, 2024 03:23 PM Reporting Lab: [place] [facility] [address] [place] [address] Performing Lab: [place] [facility] [address] [place] [address] [facility] COMPREHEN SIVE METABOLIC PANEL CARBON DIOXIDE, TOTAL [MOLES/VOLU ME] IN SERUM OR PLASMA 26 meq/L 22 - 31 10/20 Specimen Type: PLASMA Comment: LDL calculation invalid when Triglycerid e exceeds 250 mg/dl Ordering Provider: PRECIOUS SCOTT Report Released Date/Time: Oct 20, 2024 03:23 PM Reporting Lab: [place] [facility] [address] [place] [address] Performing Lab: [place] [facility] [address] [place] [address] [facility] COMPREHEN SIVE METABOLIC PANEL CALCIUM [MASS/VOLUM E] IN SERUM OR PLASMA 9.4 mg/dL 8.4 - 10.4 10/20 Specimen Type: PLASMA Comment: LDL calculation invalid when Triglycerid e exceeds 250 mg/dl Ordering Provider: SCOTT,CAT HERINE R Report Released Date/Time: Oct 20, 2024 03:23 PM Reporting Lab: [place] [facility] [address] [place] [address] Performing Lab: [place] [facility] [address] [place] [address] [facility] COMPREHEN SIVE METABOLIC PANEL PROTEIN [MASS/VOLUM E] IN SERUM OR PLASMA 7.5 g/dL 6 - 8.6 10/20 Specimen Type: PLASMA Comment: LDL calculation invalid when Triglycerid e exceeds 250 mg/dl Ordering Provider: PRECIOUS SCOTT R Report Released Date/Time: Oct 20, 2024 03:23 PM Reporting Lab: [place] [facility] [address] [place] [address] Performing Lab: [place] [facility] [address] [place] [address] [facility] COMPREHEN SIVE METABOLIC PANEL ALBUMIN [MASS/VOLUM E] IN SERUM OR PLASMA 4.8 g/dL 3.4 - 5 10/20 Specimen Type: PLASMA Comment: LDL calculation invalid when Triglycerid e exceeds 250 mg/dl Ordering Provider: PRECIOUS SCOTT R Report Released Date/Time: Oct 20, 2024 03:23 PM Reporting Lab: [place] [facility] [address] [place] [address] Performing Lab: [place] [facility] [address] [place] [address] [facility] COMPREHEN SIVE METABOLIC PANEL BILIRUBIN.T OTAL [MASS/VOLUM E] IN SERUM OR PLASMA 0.6 mg/dL 0.2 - 1.2 10/20 Specimen Type: PLASMA Comment: LDL calculation invalid when Triglycerid e exceeds 250 mg/dl Ordering Provider: PRECIOUS SCOTT R Report Released Date/Time: Oct 20, 2024 03:23 PM Reporting Lab: [place] [facility] [address] [place] [address] Performing Lab: [place] [facility] [address] [place] [address] [facility] COMPREHEN SIVE METABOLIC PANEL ALKALINE PHOSPHATASE [ENZYMATIC ACTIVITY/VO LUME] IN SERUM OR PLASMA 74 U/L 40 - 150 10/20 Specimen Type: PLASMA Comment: LDL calculation invalid when Triglycerid e exceeds 250 mg/dl Ordering Provider: PRECIOUS SCOTT Report Released Date/Time: Oct 20, 2024 03:23 PM Reporting Lab: [place] [facility] [address] [place] [address] Performing Lab: [place] [facility] [address] [place] [address] [facility] COMPREHEN SIVE METABOLIC PANEL ASPARTATE AMINOTRANSF ERASE [ENZYMATIC ACTIVITY/VO LUME] IN SERUM OR PLASMA 48 U/L 5 - 34 10/20 H Specimen Type: PLASMA Comment: LDL calculation invalid when Triglycerid e exceeds 250 mg/dl Ordering Provider: PRECIOUS SCOTT Report Released Date/Time: Oct 20, 2024 03:23 PM Reporting Lab: [place] [facility] [address] [place] [address] Performing Lab: [place] [facility] [address] [place] [address] [facility] COMPREHEN SIVE METABOLIC PANEL ALANINE AMINOTRANSF ERASE [ENZYMATIC ACTIVITY/VO LUME] IN SERUM OR PLASMA 82 U/L 8 - 40 10/20 H Specimen Type: PLASMA Comment: LDL calculation invalid when Triglycerid e exceeds 250 mg/dl Ordering Provider: PRECIOUS SCOTT Report Released Date/Time: Oct 20, 2024 03:23 PM Reporting Lab: [place] [facility] [address] [place] [address] Performing Lab: [place] [facility] [address] [place] [address] [facility] COMPREHEN SIVE METABOLIC PANEL GLOMERULAR FILTRATION RATE/1.73 SQ M.PREDICTED [VOLUME RATE/AREA] IN SERUM, PLASMA OR BLOOD BY CREATININE- BASED FORMULA (CKD-EPI 2020) 90 10/20 Specimen Type: PLASMA Comment: LDL calculation invalid when Triglycerid e exceeds 250 mg/dl Ordering Provider: PRECIOUS SCOTT Report Released Date/Time: Oct 20, 2024 03:23 PM Reporting Lab: [place] [facility] [address] [place] [address] Performing Lab: [place] [facility] [address] [place] [address] [facility] URINALYSI S (STL-PB) COLOR OF URINE Yellow 10/20 Specimen Type: URINE No comment entered. Ordering Provider: PRECIOUS SCOTT Report Released Date/Time: Oct 20, 2024 03:23 PM Reporting Lab: [place] [facility] [address] [place] [address] Performing Lab: [place] [facility] [address] [place] [address] [facility] URINALYSI S (STL-PB) BILIRUBIN.T OTAL [PRESENCE] IN URINE BY TEST STRIP NEGATIVE mg/dL 10/20 Specimen Type: URINE No comment entered. Ordering Provider: PRECIOUS SCOTT Report Released Date/Time: Oct 20, 2024 03:23 PM Reporting Lab: [place] [facility] [address] [place] [id number] Performing Lab: [place] [facility] [address] [place] [id number] [facility] URINALYSI S (STL-PB) PH OF URINE BY TEST STRIP 6.0 5.0 - 8.0 10/20 Specimen Type: URINE No comment entered. Ordering Provider: PRECIOUS SCOTT Report Released Date/Time: Oct 20, 2024 03:23 PM Reporting Lab: [place] [facility] [address] [place] [address] Performing Lab: [place] [facility] [address] [place] [address] [facility] URINALYSI S (STL-PB) APPEARANCE OF URINE CLEAR 10/20 Specimen Type: URINE No comment entered. Ordering Provider: PRECIOUS SCOTT Report Released Date/Time: Oct 20, 2024 03:23 PM Reporting Lab: [place] [facility] [address] [place] [address] Performing Lab: [place] [facility] [address] [place] [address] [facility] URINALYSI S (STL-PB) NITRITE [PRESENCE] IN URINE BY TEST STRIP NEGATIVE mg/dL 10/20 Specimen Type: URINE No comment entered. Ordering Provider: PRECIOUS SCOTT Report Released Date/Time: Oct 20, 2024 03:23 PM Reporting Lab: [place] [facility] [address] [place] [address] Performing Lab: [place] [facility] [address] [place] [address] [facility] URINALYSI S (STL-PB) GLUCOSE [MASS/VOLUM E] IN URINE BY TEST STRIP NORMALmg /dL 10/20 Specimen Type: URINE No comment entered. Ordering Provider: PRECIOUS SCOTT Report Released Date/Time: Oct 20, 2024 03:23 PM Reporting Lab: [place] [facility] [address] [place] [phone] Performing Lab: [place] [facility] [address] [place] [phone] [facility] URINALYSI S (STL-PB) PROTEIN [MASS/VOLUM E] IN URINE BY TEST STRIP NEGATIVE mg/dL 10/20 Specimen Type: URINE No comment entered. Ordering Provider: PRECIOUS SCOTT Report Released Date/Time: Oct 20, 2024 03:23 PM Reporting Lab: [place] [facility] [address] [place] [phone] Performing Lab: [place] [facility] [address] [place] [phone] [facility] URINALYSI S (STL-PB) URN.UROBILI NOGEN NORMALmg /dL 10/20 Specimen Type: URINE No comment entered. Ordering Provider: PRECIOUS SCOTT R Report Released Date/Time: Oct 20, 2024 03:23 PM Reporting Lab: [place] [facility] [address] [place] [phone] Performing Lab: [place] [facility] [address] [place] [address] [facility] URINALYSI S (STL-PB) HEMOGLOBIN [MASS/VOLUM E] IN URINE BY TEST STRIP NEGATIVE mg/dL 10/20 Specimen Type: URINE No comment entered. Ordering Provider: PRECIOUS SCOTT Report Released Date/Time: Oct 20, 2024 03:23 PM Reporting Lab: [place] [facility] [address] [place] [address] Performing Lab: [place] [facility] [address] [place] [address] [facility] URINALYSI S (STL-PB) KETONES [MASS/VOLUM E] IN URINE BY TEST STRIP NEGATIVE mg/dL 10/20 Specimen Type: URINE No comment entered. Ordering Provider: PRECIOUS SCOTT Report Released Date/Time: Oct 20, 2024 03:23 PM Reporting Lab: [place] [facility] [address] [place] [phone] Performing Lab: [place] [facility] [address] [place] [address] [facility] URINALYSI S (STL-PB) URN.LEUK.ES T. NEGATIVE 10/20 Specimen Type: URINE No comment entered. Ordering Provider: PRECIOUS SCOTT Report Released Date/Time: Oct 20, 2024 03:23 PM Reporting Lab: [place] [facility] [address] [place] [phone] Performing Lab: [place] [facility] [address] [place] [phone] [facility] URINALYSI S (STL-PB) SPECIFIC GRAVITY OF URINE 1.026 1.005 - 1.029 10/20 Specimen Type: URINE No comment entered. Ordering Provider: PRECIOUS SCOTT Report Released Date/Time: Oct 20, 2024 03:23 PM Reporting Lab: [place] [facility] [address] [place] [address] Performing Lab: [place] [facility] [address] [place] [address] [facility] CBC LEUKOCYTES [#/VOLUME] IN BLOOD BY AUTOMATED COUNT 7.1 10*3/uL 3.6 - 11.2 10/20 Specimen Type: BLOOD No comment entered. Ordering Provider: PRECIOUS SCOTT Report Released Date/Time: Oct 20, 2024 03:23 PM Reporting Lab: [place] [facility] [address] [place] [address] Performing Lab: [place] [facility] [address] [place] [address] [facility] CBC ERYTHROCYTE S [#/VOLUME] IN BLOOD BY AUTOMATED COUNT 5.16 10*6/uL 4.10 - 5.70 10/20 Specimen Type: BLOOD No comment entered. Ordering Provider: PRECIOUS SCOTT Report Released Date/Time: Oct 20, 2024 03:23 PM Reporting Lab: [place] [facility] [address] [place] [address] Performing Lab: [place] [facility] [address] [place] [address] [facility] CBC HEMOGLOBIN [MASS/VOLUM E] IN BLOOD 15.2 g/dL 13.1 - 16.8 10/20 Specimen Type: BLOOD No comment entered. Ordering Provider: PRECIOUS SCOTT Report Released Date/Time: Oct 20, 2024 03:23 PM Reporting Lab: [place] [facility] [address] [place] [address] Performing Lab: [place] [facility] [address] [place] [address] [facility] CBC HEMATOCRIT [VOLUME FRACTION] OF BLOOD 44.8 38.2 - 48.4 10/20 Specimen Type: BLOOD No comment entered. Ordering Provider: PRECIOUS SCOTT Report Released Date/Time: Oct 20, 2024 03:23 PM Reporting Lab: [place] [facility] [address] [place] [address] Performing Lab: [place] [facility] [address] [place] [address] [facility] CBC MCV [ENTITIC VOLUME] BY AUTOMATED COUNT 86.8 fL 80.0 - 100.0 10/20 Specimen Type: BLOOD No comment entered. Ordering Provider: SCOTT,CAT HERINE R Report Released Date/Time: Oct 20, 2024 03:23 PM Reporting Lab: [place] [facility] [address] [place] [address] Performing Lab: [place] [facility] [address] [place] [address] [facility] CBC MCH [ENTITIC MASS] BY AUTOMATED COUNT 29.5 pg 27.0 - 34.0 10/20 Specimen Type: BLOOD No comment entered. Ordering Provider: PRECIOUS SCOTT Report Released Date/Time: Oct 20, 2024 03:23 PM Reporting Lab: [place] [facility] [address] [place] [address] Performing Lab: [place] [facility] [address] [place] [address] [facility] CBC MCHC [MASS/VOLUM E] BY AUTOMATED COUNT 33.9 g/dL 33.0 - 36.0 10/20 Specimen Type: BLOOD No comment entered. Ordering Provider: PRECIOUS SCOTT R Report Released Date/Time: Oct 20, 2024 03:23 PM Reporting Lab: [place] [facility] [address] [place] [address] Performing Lab: [place] [facility] [address] [place] [phone] [facility] CBC PLATELETS [#/VOLUME] IN BLOOD BY AUTOMATED COUNT 257 10*3/uL 150 - 400 10/20 Specimen Type: BLOOD No comment entered. Ordering Provider: PRECIOUS SCOTT R Report Released Date/Time: Oct 20, 2024 03:23 PM Reporting Lab: [place] [facility] [address] [place] [address] Performing Lab: [place] [facility] [address] [place] [id number] [facility] CBC PLATELET MEAN VOLUME [ENTITIC VOLUME] IN BLOOD BY AUTOMATED COUNT 8.6 fL 7.5 - 11.2 10/20 Specimen Type: BLOOD No comment entered. Ordering Provider: PRECIOUS SCOTT R Report Released Date/Time: Oct 20, 2024 03:23 PM Reporting Lab: [place] [facility] [address] [place] [address] Performing Lab: [place] [facility] [address] [place] [address] [facility] CBC ERYTHROCYTE DISTRIBUTIO N WIDTH [RATIO] BY AUTOMATED COUNT 12.8 11.8 - 15.1 10/20 Specimen Type: BLOOD No comment entered. Ordering Provider: PRECIOUS SCOTT Report Released Date/Time: Oct 20, 2024 03:23 PM Reporting Lab: [place] [facility] [address] [place] [address] Performing Lab: [place] [facility] [address] [place] [address] [facility] CBC LYMPHOCYTES /100 LEUKOCYTES IN BLOOD BY AUTOMATED COUNT 30.3 10/20 Specimen Type: BLOOD No comment entered. Ordering Provider: PRECIOUS SCOTT Report Released Date/Time: Oct 20, 2024 03:23 PM Reporting Lab: [place] [facility] [address] [place] [address] Performing Lab: [place] [facility] [address] [place] [address] [facility] CBC MONOCYTES/1 00 LEUKOCYTES IN BLOOD BY AUTOMATED COUNT 10.0 10/20 Specimen Type: BLOOD No comment entered. Ordering Provider: PRECIOUS SCOTT R Report Released Date/Time: Oct 20, 2024 03:23 PM Reporting Lab: [place] [facility] [address] [place] [address] Performing Lab: [place] [facility] [address] [place] [address] [facility] CBC NEUTROPHILS /100 LEUKOCYTES IN BLOOD BY AUTOMATED COUNT 55.4 10/20 Specimen Type: BLOOD No comment entered. Ordering Provider: PRECIOUS SCOTT R Report Released Date/Time: Oct 20, 2024 03:23 PM Reporting Lab: [place] [facility] [address] [place] [address] Performing Lab: [place] [facility] [address] [place] [address] [facility] CBC EOSINOPHILS /100 LEUKOCYTES IN BLOOD BY AUTOMATED COUNT 2.3 10/20 Specimen Type: BLOOD No comment entered. Ordering Provider: PRECIOUS SCOTT Report Released Date/Time: Oct 20, 2024 03:23 PM Reporting Lab: [place] [facility] [address] [place] [address] Performing Lab: [place] [facility] [address] [place] [address] [facility] CBC BASOPHILS/1 00 LEUKOCYTES IN BLOOD BY AUTOMATED COUNT 1.0 10/20 Specimen Type: BLOOD No comment entered. Ordering Provider: PRECIOUS SCOTT Report Released Date/Time: Oct 20, 2024 03:23 PM Reporting Lab: [place] [facility] [address] [place] [address] Performing Lab: [place] [facility] [address] [place] [phone] [facility] CBC LYMPHOCYTES [#/VOLUME] IN BLOOD BY AUTOMATED COUNT 2.15 10*3/uL 0.77 - 4.50 10/20 Specimen Type: BLOOD No comment entered. Ordering Provider: PRECIOUS SCOTT R Report Released Date/Time: Oct 20, 2024 03:23 PM Reporting Lab: [place] [facility] [address] [place] [address] Performing Lab: [place] [facility] [address] [place] [phone] [facility] CBC MONOCYTES [#/VOLUME] IN BLOOD BY AUTOMATED COUNT 0.71 10*3/uL 0.19 - 0.8 10/20 Specimen Type: BLOOD No comment entered. Ordering Provider: PRECIOUS SCOTT R Report Released Date/Time: Oct 20, 2024 03:23 PM Reporting Lab: [place] [facility] [address] [place] [address] Performing Lab: [place] [facility] [address] [place] [address] [facility] CBC NEUTROPHILS [#/VOLUME] IN BLOOD BY AUTOMATED COUNT 3.93 10*3/uL 2.10 - 8.00 10/20 Specimen Type: BLOOD No comment entered. Ordering Provider: PRECIOUS SCOTT R Report Released Date/Time: Oct 20, 2024 03:23 PM Reporting Lab: [place] [facility] [address] [place] [address] Performing Lab: [place] [facility] [address] [place] [address] [place] [address] [facility] CBC EOSINOPHILS [#/VOLUME] IN BLOOD BY AUTOMATED COUNT 0.16 10*3/uL 0.00 - 0.60 10/20 Specimen Type: BLOOD No comment entered. Ordering Provider: PRECIOUS SCOTT R Report Released Date/Time: Oct 20, 2024 03:23 PM Reporting Lab: [place] [facility] [address] [place] [address] [place] [address] Performing Lab: [place] [facility] [address] [place] [address] [facility] CBC BASOPHILS [#/VOLUME] IN BLOOD BY AUTOMATED COUNT 0.07 10*3/uL 0.00 - 0.20 10/20 Specimen Type: BLOOD No comment entered. Ordering Provider: PRECIOUS SCOTT R Report Released Date/Time: Oct 20, 2024 03:23 PM Reporting Lab: [place] [facility] [address] [place] [address] Performing Lab: [place] [facility] [address] [place] [address] [facility] CBC IMMATURE GRANULOCYTE S/100 LEUKOCYTES IN BLOOD BY AUTOMATED COUNT 1.0 10/20 Specimen Type: BLOOD No comment entered. Ordering Provider: PRECIOUS SCOTT R Report Released Date/Time: Oct 20, 2024 03:23 PM Reporting Lab: [place] [facility] [address] [place] [address] Performing Lab: [place] [facility] [address] [place] [address] [place] [address] [facility] CBC IMMATURE GRANULOCYTE S [#/VOLUME] IN BLOOD BY AUTOMATED COUNT 0.07 10*3/uL 0.00 - 0.05 10/20 H Specimen Type: BLOOD No comment entered. Ordering Provider: PRECIOUS SCOTT R Report Released Date/Time: Oct 20, 2024 03:23 PM Reporting Lab: [place] [facility] [address] [place] [address] Performing Lab: [place] [facility] [address] [place] [address] [facility] PROST. SPECIFIC AG.(PB-ST L) PROSTATE SPECIFIC AG [MASS/VOLUM E] IN SERUM OR PLASMA 0.71 ng/mL 0 - 4 10/20 Specimen Type: SERUM No comment entered. Ordering Provider: PRECIOUS SCOTT Report Released Date/Time: Oct 21, 2023 03:18 PM Reporting Lab: [place] [facility] [address] [place] [phone] Performing Lab: [place] [facility] [address] [place] [address] [facility] CHOLESTER OL PANEL (PB) CHOLESTEROL [MASS/VOLUM E] IN SERUM OR PLASMA 213 mg/dL 0 - 200 10/20 H Specimen Type: PLASMA Comment: LDL calculation invalid when Triglycerid e exceeds 250 mg/dl Ordering Provider: PRECIOUS SCOTT Report Released Date/Time: Oct 21, 2023 03:18 PM Reporting Lab: [place] [facility] [address] [place] [address] Performing Lab: [place] [facility] [address] [place] [phone] [facility] CHOLESTER OL PANEL (PB) TRIGLYCERID E [MASS/VOLUM E] IN SERUM OR PLASMA 311 mg/dL 0 - 150 10/20 H Specimen Type: PLASMA Comment: LDL calculation invalid when Triglycerid e exceeds 250 mg/dl Ordering Provider: PRECIOUS SCOTT Report Released Date/Time: Oct 21, 2023 03:18 PM Reporting Lab: [place] [facility] [address] [place] [address] Performing Lab: [place] [facility] [address] [place] [address] [facility] CHOLESTER OL PANEL (PB) CHOLESTEROL IN LDL [MASS/VOLUM E] IN SERUM OR PLASMA BY CALCULATION commentm g/dL 10/20 Specimen Type: PLASMA Comment: LDL calculation invalid when Triglycerid e exceeds 250 mg/dl Ordering Provider: PRECIOUS SCOTT Report Released Date/Time: Oct 21, 2023 03:18 PM Reporting Lab: [place] [facility] [address] [place] [address] Performing Lab: [place] [facility] [address] [place] [address] [facility] CHOLESTER OL PANEL (PB) CHOLESTEROL IN HDL [MASS/VOLUM E] IN SERUM OR PLASMA 35.8 mg/dL 40 10/20 L Specimen Type: PLASMA Comment: LDL calculation invalid when Triglycerid e exceeds 250 mg/dl Ordering Provider: PRECIOUS SCOTT Report Released Date/Time: Oct 21, 2023 03:18 PM Reporting Lab: [place] [facility] [address] [place] [address] Performing Lab: [place] [facility] [address] [place] [address] [facility] CHOLESTER OL PANEL (PB) CHOLESTEROL IN HDL/CHOLEST JACIEL.TOTAL [MASS RATIO] IN SERUM OR PLASMA 16.8 25 10/20 Specimen Type: PLASMA Comment: LDL calculation invalid when Triglycerid e exceeds 250 mg/dl Ordering Provider: PRECIOUS SCOTT Report Released Date/Time: Oct 21, 2023 03:18 PM Reporting Lab: [place] [facility] [address] [place] [address] Performing Lab: [place] [facility] [address] [place] [address] [facility] CHOLESTER OL PANEL (PB) CHOLESTEROL IN LDL [MASS/VOLUM E] IN SERUM OR PLASMA BY DIRECT ASSAY 138.1 mg/dL 0 - 99.9 10/20 H Specimen Type: PLASMA Comment: LDL calculation invalid when Triglycerid e exceeds 250 mg/dl Ordering Provider: PRECIOUS SCOTT Report Released Date/Time: Oct 21, 2023 03:18 PM Reporting Lab: [place] [facility] [address] [place] [address] Performing Lab: [place] [facility] [address] [place] [address] [place] [facility] Vital Signs Combined list of inpatient and outpatient Vital Signs from Department of Defense and Veterans Affairs, ranging from 12 months to all on record, depending upon the facility. Vital Sign Value Date Comments Source SYSTOLIC BLOOD PRESSURE 127 11/03/2024 15:13:00 [place] [facility] DIASTOLIC BLOOD PRESSURE 81 11/03/2024 15:13:00 [place] [facility] PULSE OXIMETRY 97 % 11/03/2024 15:13:00 [facility] WEIGHT 225.9 11/03/2024 15:13:00 [place] [facility] BMI 32 kg/m2 11/03/2024 15:13:00 [place] [facility] PAIN 2 11/03/2024 15:13:00 [place] [facility] HEIGHT 70.0 11/03/2024 15:13:00 [place] [facility] TEMPERATURE 97.7 11/03/2024 15:13:00 [place] [facility] PULSE 94 11/03/2024 15:13:00 [place] [facility] RESPIRATION 16 11/03/2024 15:13:00 [place] [facility] SYSTOLIC BLOOD PRESSURE 118 10/20/2024 15:32:00 [place] [facility] DIASTOLIC BLOOD PRESSURE 81 10/20/2024 15:32:00 [place] [facility] PULSE OXIMETRY 98 10/20/2024 15:32:00 [facility] WEIGHT 223.3 10/20/2024 15:32:00 [place] [facility] BMI 32 kg/m2 10/20/2024 15:32:00 [place] [facility] PAIN 0 10/20/2024 15:32:00 [place] [facility] HEIGHT 70.0 10/20/2024 15:32:00 [place] [facility] PULSE 93 10/20/2024 15:32:00 [place] [facility] RESPIRATION 14 10/20/2024 15:32:00 [place] [facility] SYSTOLIC BLOOD PRESSURE 131 10/12/2024 15:20:00 [place] [facility] DIASTOLIC BLOOD PRESSURE 82 10/12/2024 15:20:00 [place] [facility] TEMPERATURE 99 10/12/2024 15:20:00 [place] [facility] PULSE 87 10/12/2024 15:20:00 [facility] SYSTOLIC BLOOD PRESSURE 120 09/14/2024 15:20:00 [place] [facility] DIASTOLIC BLOOD PRESSURE 76 09/14/2024 15:20:00 [place] [facility] TEMPERATURE 98.2 09/14/2024 15:20:00 [place] [facility] PULSE 92 09/14/2024 15:20:00 [place] [facility] SYSTOLIC BLOOD PRESSURE 125 08/19/2024 15:32:00 [place] [facility] DIASTOLIC BLOOD PRESSURE 86 08/19/2024 15:32:00 [place] [facility] PULSE OXIMETRY 98 08/19/2024 15:32:00 [facility] WEIGHT 222.5 08/19/2024 15:32:00 [place] [facility] BMI 32 kg/m2 08/19/2024 15:32:00 [place] [facility] PAIN 0 08/19/2024 15:32:00 [facility] HEIGHT 70.0 08/19/2024 15:32:00 [facility] PULSE 83 08/19/2024 15:32:00 [facility] RESPIRATION 14 08/19/2024 15:32:00 [facility] Encounters Combined list of: 1) Encounters from Department of Veterans Affairs facilities going backup to the last 18 months, not all VA inpatient encounters are included; 2) Encounters from the Department of Defense facilities going backup to 280 months. Location Location Details Encounter Type Encounter Number Reason For Visit Attending Provider ADM Date DC Date Status Disposition Source [facility] Outpatient Encounter [id number] 06/16 [facility] Outpatient Encounter [id number] 06/26 [facility] Outpatient Encounter [id number] 07/03 [facility] Outpatient Encounter [id number] 07/10 [facility] Outpatient Encounter [id number] 07/22 [facility] Outpatient Encounter [id number] 08/18 [facility] Outpatient Encounter [id number] ROBANTONIA MARTINEZ DY 09/28 [facility] Outpatient Encounter [id number] Diagnos is: ICD-10- CM Z00.00 Encntr for general adult medical exam w/o abnorma l finding s TERRIE SCOTT THERINE R 10/20 [facility] Outpatient Encounter [id number] 10/21 [facility] Outpatient Encounter [id number] Diagnos is: ICD-10- CM Z46.1 Encount er for fitting and adjustm ent of hearing aid PENELOPEWILIAN SCHMIDT A 11/09 [facility] Outpatient Encounter [id number] 11/10 [facility] FEE [id number] Diagnos is: ICD-10- CM H93.13 Tinnitu s bilater WILIAN RooneyNDRA A 12/14 [facility] APRIL TEST PURE TONE [id number] Diagnos is: ICD-10- CM H93.13 Tinnitu s bilWILIAN ScanlonNDRA A 12/14 [place] [facility] Outpatient Encounter [id number] 12/17 [facility] CHIROPRACT MANJ 3-4 [place] [id number] Diagnos is: ICD-10- CM M99.02 Segment al and somatic dysfunc tion of thoraci c region BOZENATOYIN PAULA Chiu 12/22 [facility] FEE [id number] Diagnos is: ICD-10- CM Z46.1 Encount er for fitting and adjustm ent of hearing aid WILIAN NEGRETE A 01/15 [facility] [place] [facility] CONFORMITY EVALUATION [id number] Diagnos is: ICD-10- CM Z46.1 Encount er for fitting and adjustm ent of hearing aid WILIAN NEGRETE A 01/15 POPLCALLIE BARRY [facility] Outpatient Encounter [id number] TERRIE SCOTT THERINE R 01/20 [facility] OFF/OP EST SEPTEMBER X REQ PHY/QHP [id number] Diagnos is: ICD-10- CM R05.1 Acute cough TERRIE SCOTT THERINE R 01/20 [facility] [place] MANJ 3-4 REGIONS [id number] Diagnos is: ICD-10- CM M99.02 Segment al and somatic dysfunc tion of thoraci c region TOYIN SEALS 02/02 [facility] Outpatient Encounter [id number] 02/05 [facility] [place] MANJ 3-4 REGIONS [id number] Diagnos is: ICD-10- CM M99.02 Segment al and somatic dysfunc tion of thoraci c region TOYIN SEALS 02[facility]23 [facility] [place] MANJ 3-4 REGIONS [id number] Diagnos is: ICD-10- CM M99.02 Segment al and somatic dysfunc tion of thoraci c region TOYIN SEALS E 03/23 [facility] [place] MANJ 3-4 REGIONS [id number] Diagnos is: ICD-10- CM M99.02 Segment al and somatic dysfunc tion of thoraci c region TOYIN SEALS E 04/20 [facility] Outpatient Encounter [id number] MARYAP RIL L 05/10 [facility] MANJ 3-4 REGIONS [id number] Diagnos is: ICD-10- CM M99.02 Segment al and somatic dysfunc tion of thoraci c region TOYIN SEALS 05/18 [facility] Outpatient Encounter [id number] 05/18 [facility] [place]-4 REG[place] [id number] Diagnos is: ICD-10- CM M99.02 Segment al and somatic dysfunc tion of thoraci c region TOYIN SEALS E 06/15 [facility] Outpatient Encounter [id number] 06/23 [facility] [place] MANJ 3-4 REGIONS [id number] Diagnos is: ICD-10- CM M99.02 Segment al and somatic dysfunc tion of thoraci c region TOYIN SEALS 07/20 [facility] EST MAY X REQ PHY/QHP [id number] Diagnos is: ICD-10- CM S60.459 A Superfi cial foreign body of unspeci fied finger, init encntr Ilir LEIJA 08/05 [facility] CH[place]CT MANJ 3-4 REGIONS [id number] Diagnos is: ICD-10- CM M99.02 Segment al and somatic dysfunc tion of thoraci c region TOYIN SEALS 08/17 [facility] OFFICE O/P EST MOD 30 MIN [id number] Diagnos is: ICD-10- CM F32.A Depress ion, unspeci fied TERRIE SCOTT R 08/19 [facility] CHIR[place]CT MANJ 3-4 REGIONS [id number] Diagnos is: ICD-10- CM M99.02 Segment al and somatic dysfunc tion of thoraci c region TOYIN SEALS 09/14 [facility] CH[place]CT MANJ 3-4 REGIONS [id number] Diagnos is: ICD-10- CM M99.02 Segment al and somatic dysfunc tion of thoraci c region TOYIN SEALS 10/12 [facility] Outpatient Encounter [id number] TERRIE SCOTT R 10/20 [facility] Outpatient Encounter [id number] Diagnos is: ICD-10- CM Z00.00 Encntr for general adult medical exam w/o abnorma l finding s TERRIE SCOTT R 10/20 [facility] Outpatient Encounter [id number] 11/02 [facility] Outpatient Encounter [id number] TERRIE SCOTT R 11/03 [facility] OFFICE O/P EST MOD 30 MIN [id number] Diagnos is: ICD-10- CM M79.672 Pain in left foot TERRIE SCOTT THERINE R 11/03 [facility] Outpatient Encounter [id number] 11/08 [facility] Social History Combined list of available smoking, tobacco, and other social history from Department of Defense and Veterans Affairs facilities. Social History Type Response Date Comment [facility] e Tobacco smoking status ALIS VA-TOBACCO NEVER USED CIGARETTES 10/20/2024 [facility] History of tobacco use [place]-TO[place]ACCO NEVER USED OTHER TYPE [facility] History of tobacco use [place]-TO[place]ACCO NEVER USED 03/25/2022 [facility] History of tobacco use VA-TOBACCO NEVER USED [facility] tobacco use VA-TOBACCO FORMER USER 05/09/2020 [facility] History of tobacco use VA-TOBACCO NEVER USED 05/17/2019 [facility] History of tobacco use LIFETIME NON-USER OF TOBACCO 05/09/2008 [facility] History of tobacco use LIFETIME NON-USER OF TOBACCO 09/03/2007 [facility] History of tobacco use LIFETIME NON-USER OF TOBACCO 07/30/2007 [facility] History of tobacco use LIFETIME NON-TOBACCO USER 10/21/2005 [facility] History of tobacco use LIFETIME NON-TOBACCO USER 08/23/2004 [facility] History of tobacco use CURRENT NON-TOBACCO USER-HX OF USE 06/11/2004 [facility] History of tobacco use LIFETIME NON-TOBACCO USER 07/07/2002 [facility] History of tobacco use LIFETIME NON-TOBACCO USER 02/04/2001 [facility] This section is an empty social history section. [facility] Plan of Care List of future care activities from Department of Veterans Affairs facilities. Additional future care activities may be listed in the Assessment and Plan section. Date/Time Care Activity Care Activity Detail Facili ty 11/24/2024 AMBULATORY - MEDICINE AMBULATORY - MEDICI NE [facility]
--- OUTSIDE RECORDS SUMMARY | 2024-11-08 16:02 | XMS_ITS | Clinical Summary ---
Author Organization [facility] de Address [address] [place] [address] Phone Care Team Providers Care Manager Human Resources Name Role Phone Non-Staff, Physician Primary Care Provider Unava ilable Allergies Active Allergy Reactions Criticality Noted Date Comments Wool Shortness of Breath/Wheezing High 024 Medications cyclobenzaprine (FLEXERIL) 10 mg tablet Take 10 mg by mouth 3 times daily as needed for Spasm. Active lisinopriL (PRINIVIL) 10 mg tablet Take 10 mg by mouth daily. Active lisinopriL (PRINIVIL) 10 mg tablet Take 10 mg by mouth daily. 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 Gender Identity Not on file Sexual Orientation Not on file Last Filed Vital Signs Vital Sign Reading Time Taken Comments Blood Pressure 136/82 08/07/2023 2:04 PM CDT Pulse 80 12/13/2020 2:08 PM CDT Temperature 36.8 C (98.3 F) 02/21/2017 10:14 AM CDT Respiratory Rate 14 02/21/2017 10:14 AM CDT Oxygen Saturation - - Inhaled Oxygen Concentration - - Weight 102.5 kg (226 lb) 08/07/2023 2:04 PM CDT Height 177.8 cm (5' 10 ) 08/07/2023 2:04 PM CDT Body Mass Index 32.43 08/07/2023 2:04 PM CDT Plan of Treatment Health Maintenance Due Date Last Done Comments HEPATITIS B VACCINES (1 of 3 - 19+ 3-dose series) 02/24/1996 COLORECTAL SCREENING 2022 Colorectal Cancer Screening 2022 FIT-DNA Q 3 years 2022 FIT/FOBT Q 1 year 2022 Flex Sig/CT Colonography Q 5 years 2022 DTAP/TDAP/TD VACCINES (2 - Td or Tdap) 08/05/2022, 05/12/1997 INFLUENZA VACCINE (#1) 2023 Insurance [employer] [facility] [place] [place] [address] [employer] * Guarantor: [facility] I (C) Account Type Relation to Patient Date of Phone Billing Address Corporate Other DEFAULT ADDRESS [address] [employer] Care Teams Manager Human Resources Relationship Specialty Start Date End Date Non-Staff, Physician NO ADDRESS ON FILE PCP - General 04/23/11
--- OUTSIDE RECORDS SUMMARY | 2024-11-08 16:02 | XMS_ITS | Clinical Summary ---
Author Organization [facility] de Address [address] [place] [address] Phone Care Team Providers Care Bench Scientist Name Role Phone Non-Staff, Physician Primary Care Provider Unava ilable Allergies No known active allergies Medications lisinopril (PRINIVIL) 10 mg tablet Take 10 mg by mouth daily. 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 Gender Identity Not on file Sexual Orientation Not on file Occupation Industry Job Start Date Job End Date Not on file Not on file Not on file Not on file Last Filed Vital Signs Vital Sign Reading Time Taken Comments Blood Pressure 129/68 02/21/2017 12:51 PM CDT Pulse 109 02/21/2017 12:51 PM CDT Temperature 36.8 C (98.3 F) 02/21/2017 10:14 AM CDT Respiratory Rate 14 02/21/2017 10:14 AM CDT Oxygen Saturation 98% 02/21/2017 10:14 AM CDT Inhaled Oxygen Concentration - - Weight 95.3 kg (210 lb) 02/21/2017 12:51 PM CDT Height 177.8 cm (5' 10 ) 02/21/2017 12:51 PM CDT Body Mass Index 30.13 02/21/2017 12:51 PM CDT Plan of Treatment Health Maintenance Due Date Last Done Comments DTAP/TDAP/TD VACCINES (1 - Tdap) 02/24/1996 HEPATITIS B VACCINES (1 of 3 - 19+ 3-dose series) 02/09 COLORECTAL SCREENING 2022 Colorectal Cancer Screening 2022 FIT-DNA Q 3 years 2022 FIT/FOBT Q 1 year 2022 Flex Sig/CT Colonography Q 5 years 2022 INFLUENZA VACCINE (#1) 2023 Insurance [facility] ACCIDENT REPORTING OFFICE [facility] [employer] Advance Directives For more information, please contact: [phone] * Full Code (Latest Code Status on File) Date Activated Date Inactivated Comments 04/24/2011 11:53 AM 04/25/2011 3:36 PM * Full Code Date Activated Date Inactivated Comments 04/24/2011 6:24 AM 04/24/2011 11:53 AM Care Teams Bench Scientist Relationship Specialty Start Date End Date Non-Staff, Physician NO ADDRESS ON FILE PCP - General 04/23/11
--- OUTSIDE RECORDS SUMMARY | 2024-11-08 16:03 | XMS_ITS ---
Author Organization Unknown Address [address] [place] [address] [phone] Phone Care Team Providers Care Health And Safety Advisor Name Role Phone EFRAIN VIEYRA DO Attending Unavailable Results EG LUMBAR SPINE (3V) - Compl eted: 03/03/2023 09:19 LOINC: [address] [address]. Radiology Report Patient Name: CHRISTINE SUNSHINE N Date of : 1975 Ordering Provider: AZALIA ZUNIGA Date of Service: 03/03/2023 Procedure: EG LUMBAR SPINE (3V) History: TRAUMA/HERNIATED DISK 3 views lumbar spine Comparison: None Findings: Straightening of the normal lumbar lordosis. 4-5 mm of anterolisthesis of L5-S1. No acute fractures or dislocation. Preservation of intervertebral disc height throughout the lumbar spine. IMPRESSION: 1. No acute fracture involving the lumbar spine. Straightening of the normal lumbar lordosis. 2. 4-5 mm of anterolisthesis of L5-S1. E-Signed by: Justin Alcantara DO on 03/04/2023 01:05:18 03/04/23.0106.RR .to EFRAIN via fax Social History Type Status Start Date End Date Code Code Syst em Sex Male Hospital Discharge Instructions Should you have any questions prior to discharge, please contact a member of your healthcare team. If you have left the hospital and have any questions, please contact your primary care physician. Reason For Referral No Data Found Plan of Treatment No Data Found Encounters Encounter Diagnosis Start Date Code Code Sys tem Adult health examination 03/03/2023 [id number] [facility] MED-CT Personal Care Team Section Performer Name Performer Role Active Date Inactive Da te Imaging Narrative Notes [facility] 04/04/2023 03:[address] [facility] [place] [address]. Radiology Report Patient Name: CHRISTINE SNUSHINE N Date of : 1975 Ordering Provider: AZALIA ZUNIGA Date of Service: 03/03/2023 Procedure: EG LUMBAR SPINE (3V) History: TRAUMA/HERNIATED DISK 3 views lumbar spine Comparison: None Findings: Straightening of the normal lumbar lordosis. 4-5 mm of anterolisthesis of L5-S1. No acute fractures or dislocation. Preservation of intervertebral disc height throughout the lumbar spine.
--- OUTSIDE RECORDS SUMMARY | 2024-11-08 16:04 | XMS_ITS | Encounter Summary ---
Author Organization [facility] Address [address] [place] [address] Care Team Providers Care Oyster Opener Name Role Phone Non-Staff, Physician Primary Care Provider Unava ilable Encounter Details Date Type Department Care Team (Late st Contact Info) Description 04/03/2011 Ancillary Orders [facility] Cardiology- Jose Alejandro [address] [place] [address] Alda Quiroz MD [address] [facility] [address] [place] [address] WPW (Qgoab-Pehodjhrh-Qnc te syndrome) Social History Tobacco Use Types Packs/Day Years Used Date Smoking Tobacco: Never Smokeless Tobacco: Never Alcohol Use Standard Drinks/Week Comments Not Asked 0 (1 standard drink = 0.6 oz pur e alcohol) Sex and Gender Information Value Date Recorded Sex Assigned at Not on file 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 POST-PROCEDURE DIAGNOSES: 1. WPW and significant palpitations every week. 2. Status post radiofrequency ablation for the accessory pathway at posteroseptal area. Post ablation, normal accessory pathway conduction. MATERIALS USED: 1. 5, 6-Andorran sheaths for the left femoral vein for the quadruple and octipolar catheter to map His bundle and RV apex. 2. 7-Andorran sheath to right femoral vein for the quadruple electrode catheter to the HRA, and later on 5-Andorran sheath changed to 8-Andorran sheath SRO long sheath for the 4-mm ablation catheter. 3. 7-Andorran sheath to right internal jugular for the Orbiter electrode catheter to map coronary sinus. PROCEDURES PERFORMED: 1. Comprehensive electrophysiology study. 2. Comprehensive electrophysiology study with isoproterenol-induced supraventricular tachycardia. 3. 3-D mapping with the EnSite system at anterior and posteroseptal as well as coronary sinus area. 4. Radiofrequency ablation of accessory pathway. 5. Post-ablation study. DESCRIPTION OF PROCEDURE: After informed consent was obtained, the patient was sent to the EP lab in a postabsorptive state. Bilaterally groins and the right neck were prepped in usual fashion with sterile technique. All catheters as mentioned above were used, guided under fluoroscopic guidance to inside the heart so we can electrically map HRA, His bundle, RV apex area. The patient's baseline was obtained as following: QTc is 451 milliseconds. OH is 112 milliseconds. QRS 140 milliseconds. Q-T is 390 milliseconds. AH is 18 milliseconds. HV is 0 to sometimes negative. The patient clearly has antegrade conduction through the accessory pathway. Cycle length is 750 milliseconds. Ventricular pacing demonstrated 170 milliseconds at 600/360, most likely retrograde conduction jump from the accessory pathway to the A-V node. Ventricular ERP reached 600/210 milliseconds. No SVT or VT could be induced. Atrial pacing demonstrated 1:1 conduction until 350 milliseconds. We can see the patient go from the wide complex tachycardia to the narrow complex tachycardia, indicating accessory pathway ERP reached earlier than the A-V node. A-V tonio ERP reached at 600/340 milliseconds. Atrial ERP reached at 600/250 milliseconds. We did not see the A-V tonio dual physiology or any SVT or VT. 1 mcg/min of isoproterenol was then infused at a steady state. Ventricular pacing demonstrated 1:1 conduction until 280 milliseconds. The patient has concentric conduction, and ventricular ERP reached at 500/200 milliseconds. Atrial decremental pacing 1:1 until 260 milliseconds. Again, wide complex to the narrow complex jump to the A-V tonio conduction. SVT was seen with narrow complex, concentric conduction. Earliest retrograde A was in the posteroseptal area which was induced at 500/240, spontaneously converted to sinus rhythm, terminated with a V signal. We attempted to induce again but were not able to. Atrial ERP reached at 500/170 with isoproterenol. Isoproterenol was then stopped. The right groin 5-Andorran sheath was changed to SRO sheath, and the 4-mm ablation catheter was then advanced to the posteroseptal area. 3-D mapping was then proceeded in the coronary sinus and posteroseptal and anteroseptal area. First, we did the ventricular pacing and mapped the earliest atrial signal, and several ablations were proceeded. However, the patient's retrograde conduction jumped some from the VA tonio to the ventricular accessory pathway, so it was difficult to analyze. So we started to map antegrade of the ventricular signal. At the posteroseptal area, close to the NCV, the patient has A-V fusion, and radiofrequency ablation was proceeded at that area. We decreased the power to 40 alvarenga and 50 degrees C, and his first ablation after several seconds the patient's accessory pathway conduction disappeared, and clearly VA conduction and AV conduction,. However, after several minutes, the patient conducted back. So RF ablation around that area was applied, and finally we increased power to 50 alvarenga and the temperature to 60 degrees C, and several ablations were proceeded. After the final ablation, the patient does not have any evidence of accessory pathway conduction. Post ablation, 1:1 conduction with atrial pacing demonstrates 320 milliseconds, A-V tonio ERP reached at 600/280 milliseconds. We did not see any A-V tonio dual physiology. Atrial ERP post ablation reached at 600/250 milliseconds. Ventricular pacing demonstrated 1:1 conduction at just 310 milliseconds. It was concentric and decrementing. Ventricular ERP reached at 500/200 milliseconds post ablation. Final baseline as following: OH is 156. QRS is 100. Q-T 320. AH is 85. HV is 42. Cycle length 615 milliseconds. Throughout the procedure, the patient's hemodynamics and oxygenation were stable. The patient totally received 4 mg Versed and 100 mcg fentanyl. Minimal bleeding. No complication noticed. Total number of ablations 16. Total time of ablation 330 seconds. FINAL SUMMARY: 1. Normal conduction system. 2. Posteroseptal accessory pathway status post radiofrequency ablation. Post ablation, no evidence of accessory pathway. No other SVT or VT can be induced. SARAH/aaliyah - transcribed in Epic - Procedure Note Alda Quiroz MD - 05/14/2011 ELECTROPHYSIOLOGY STUDY AND RADIOFREQUENCY ABLATION: PRE-PROCEDURE DIAGNOSIS: WPW and significant palpitations every week. POST-PROCEDURE DIAGNOSES: 1. WPW and significant palpitations every week. 2. Status post radiofrequency ablation for the accessory pathway atposteroseptal area. Post ablation, normal accessory pathway conduction. MATERIALS USED: 1. 5, 6-Andorran sheaths for the left femoral vein for the quadruple andoctipolar catheter to map His bundle and RV apex. 2. 7-Andorran sheath to right femoral vein for the quadruple electrodecatheter to the HRA, and later on 5-Andorran sheath changed to 8-Frenchsheath SRO long sheath for the 4-mm ablation catheter. 3. 7-Andorran sheath to right internal jugular for the Orbiter electrodecatheter to map coronary sinus. PROCEDURES PERFORMED: 1. Comprehensive electrophysiology study. 2. Comprehensive electrophysiology study with isoproterenol- inducedsupraventricular tachycardia. 3. 3-D mapping with the EnSite system at anterior and posteroseptal aswell as coronary sinus area. 4. Radiofrequency ablation of accessory pathway. 5. Post-ablation study. DESCRIPTION OF PROCEDURE: After informed consent was obtained, the patientwas sent to the EP lab in a postabsorptive state. Bilaterally groins andthe right neck were prepped in usual fashion with sterile technique. Allcatheters as mentioned above were used, guided under fluoroscopic guidanceto inside the heart so we can electrically map HRA, His bundle, RV apexarea. The patient's baseline was obtained as following: QTc is 451milliseconds. OH is 112 milliseconds. QRS 140 milliseconds. Q-T is 390milliseconds. AH is 18 milliseconds. HV is 0 to sometimes negative. Thepatient clearly has antegrade conduction through the accessory pathway.Cycle length is 750 milliseconds. Ventricular pacing demonstrated 170milliseconds at 600/360, most likely retrograde conduction jump from theaccessory pathway to the A-V node. Ventricular ERP reached 600/210milliseconds. No SVT or VT could be induced. Atrial pacing demonstrated1:1 conduction until 350 milliseconds. We can see the patient go from thewide complex tachycardia to the narrow complex tachycardia, indicatingaccessory pathway ERP reached earlier than the A-V node. A-V tonio ERPreached at 600/340 milliseconds. Atrial ERP reached at 600/250milliseconds. We did not see the A-V tonio dual physiology or any SVT orVT. 1 mcg/min of isoproterenol was then infused at a steady state.Ventricular pacing demonstrated 1:1 conduction until 280 milliseconds.The patient has concentric conduction, and ventricular ERP reached at500/200 milliseconds. Atrial decremental pacing 1:1 until 260milliseconds. Again, wide complex to the narrow complex jump to the A-Vnodal conduction. SVT was seen with narrow complex, concentricconduction. Earliest retrograde A was in the posteroseptal area which wasinduced at 500/240, spontaneously converted to sinus rhythm, terminatedwith a V signal. We attempted to induce again but were not able to.Atrial ERP reached at 500/170 with isoproterenol. Isoproterenol was thenstopped. The right groin 5-Andorran sheath was changed to SRO sheath, andthe 4-mm ablation catheter was then advanced to the posteroseptal area.3-D mapping was then proceeded in the coronary sinus and posteroseptal andanteroseptal area. First, we did the ventricular pacing and mapped theearliest atrial signal, and several ablations were proceeded. However,the patient's retrograde conduction jumped some from the VA tonio to theventricular accessory pathway, so it was difficult to analyze. So westarted to map antegrade of the ventricular signal. At the posteroseptalarea, close to the NCV, the patient has A-V fusion, and radiofrequencyablation was proceeded at that area. We decreased the power to 40 wattsand 50 degrees C, and his first ablation after several seconds thepatient's accessory pathway conduction disappeared, and clearly VAconduction and AV conduction,. However, after several minutes, thepatient conducted back. So RF ablation around that area was applied, andfinally we increased power to 50 alvarenga and the temperature to 60 degreesC, and several ablations were proceeded. After the final ablation, thepatient does not have any evidence of accessory pathway conduction. Postablation, 1:1 conduction with atrial pacing demonstrates 320 milliseconds,A-V tonio ERP reached at 600/280 milliseconds. We did not see any A-Vnodal dual physiology. Atrial ERP post ablation reached at 600/250milliseconds. Ventricular pacing demonstrated 1:1 conduction at just 310milliseconds. It was concentric and decrementing. Ventricular ERPreached at 500/200 milliseconds post ablation. Final baseline asfollowing: OH is 156. QRS is 100. Q-T 320. AH is 85. HV is 42. Cyclelength 615 milliseconds. Throughout the procedure, the patient's hemodynamics and oxygenation werestable. The patient totally received 4 mg Versed and 100 mcg fentanyl.Minimal bleeding. No complication noticed. Total number of ablations 16.Total time of ablation 330 seconds. FINAL SUMMARY: 1. Normal conduction system. 2. Posteroseptal accessory pathway status post radiofrequency ablation.Post ablation, no evidence of accessory pathway. No other SVT or VT canbe induced. 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
[2024-11-08 16:07] VITALS: BP 138/89; PULSE 97; TEMP 36.8; O2SAT 98
--- NOTE | 2024-11-08 16:16 | ED_ITS ---
HPI - Extremity Injury (Upper) General: Chief Complaint: Extremity Injury, Upper Stated Complaint: R Shoulder injury Time Seen by Provider: 11/08/24 16:16 Source: patient Mode of arrival: ambulatory Limitations: no limitations History of Present Illness: Patient is a 49-year-old male presents to ED today for evaluation of right shoulder pain. Patient states he was loading his car and threw something into it and immediately heard a pop near his anterior shoulder. He states he has done this once before and was treated with intra-articular injections through orthopedics. He states shoulder healed with conservative therapy following this. MD complaint: injury to: right and shoulder Onset (ago): hour(s) Other Extremity Injury: Right: shoulder Other injuries: none Place: home Severity: moderate Relieving factors: immobilization Exacerbating factors: movement of extremity Associated symptoms: Reports no associated symptoms; Denies neck pain Related Data Home Medications ?Medication ?Instructions ?Recorded ?Confirmed citalopram 20 mg tablet 20 mg PO DAILY 05/08/2404/12 lisinopril 10 1 tab PO DAILY 05/08/2404/12 mg-hydrochlorothiazide 12.5 mg tablet Previous Rx's ?Medication ?Instructions ?Recorded albuterol sulfate 90 mcg/actuation 2 inh inhalation Q4 H PRN shortness 05/08/24 aerosol inhaler of breath or wheezing #18 gr ams ibuprofen 800 mg tablet 800 mg PO Q8H PRN pain #20 t abs 11/08/24 methylprednisolone 4 mg tablets in See Rx Instructions PO .COMPLEX 11/08/24 a dose pack (Medrol (Roberto)) #21 ea Allergies Allergy/AdvReac Type Severity Reaction Status Date / Time wool Allergy ALGY-Difficulty Verified 11/08/24 16:14 Breathing Review of Systems Card: Denies: chest pain Resp: Denies: dyspnea Musc: Reports: joint pain (R shoulder); Denies: neck pain, back pain, extremity pain, extremity swelling, joint swelling, joint redness, joint warmth or joint stiffness Neuro: Denies: numbness in extremities or sensory changes PFS ED PFSH: Social History Smoking and tobacco/nicotine status: former use of tobacco/nicotine Physical Exam Const: COMMON NORMALS: no acute distress, average body habitus, patient oriented x3, no limitations, healthy appearing, alert and well nourished Resp: COMMON NORMALS: normal respiratory effort and clear to auscultation bilaterally AUSCULTATION: clear to auscultation bilaterally Cardio: COMMON NORMALS: regular rate and regular rhythm RATE: regular rate RHYTHM: regular rhythm Back/Pelvis: COMMON NORMALS: thoracic and lumbar spine normal to inspection and no thoracic nor lumbar tenderness Extremity: COMMON NORMALS: normal to inspection GENERAL: Yes normal exam except as noted RIGHT UPPER EXTREMITY: Yes shoulder joint (TTP anterior joint line) Right shoulder: Yes Right shoulder joint inspection exam (normal gross inspection), Yes Right shoulder joint ROM exam (limited abduction) and Yes Right shoulder joint neurovascular exam (normal) Neuro: COMMON NORMALS: patient oriented x3, moves all extremities, no focal motor deficits and no sensory deficits noted SENSORIUM/ORIENTATION: Yes alert Course Vital Signs: Vital signs: Vital Signs Temperature 98.2 F 11/08/24 16:07 Pulse Rate 95 11/08/24 16:49 Respiratory Rate 18 11/08/24 16:49 Blood Pressure 132/75 11/08/24 16:49 Pulse Oximetry 100 11/08/24 16:49 Oxygen Delivery Me thod Room Air 11/08/24 16:07 MDM - Extremity Injury (Upper) Medical Decision Making XR of the right shoulder is unremarkable. Patient will be provided steroids and anti-inflammatories. Recommend follow-up with primary care. XR interpretation done by ED provider, pending radiology final review Discharge Plan Discharge Patient Disposition: Home Clinical Impression: Right shoulder strain Qualifiers: Encounter type: initial encounter Qualified Code(s): S46.911A - Strain of unspecified muscle, fascia and tendon at shoulder and upper arm level, right arm, initial encounter Condition: Stable Prescriptions: New ibuprofen 800 mg tablet 800 mg PO Q8H PRN (Reason: pain) Qty: 20 0RF methylprednisolone [Medrol (Roberto)] 4 mg tablets,dose pack See Rx Instructions .ROUTE .COMPLEX Qty: 21 0RF Rx Instructions: orally per package directions No Action citalopram 20 mg Tablet 20 mg PO DAILY lisinopril-hydrochlorothiazide 10-12.5 mg tablet 1 tab PO DAILY albuterol sulfate 90 mcg/actuation HFA aerosol inhaler 2 inh INHALATION Q4H PRN (Reason: shortness of breath or wheezing) Qty: 18 0RF Discharge Orders: Discharge ED (Routine); Ordered 11/08/24 Ordered By: Nika Ross Referrals: Sarita Caldwell FNP [Primary Care Provider, Nurse Practitioner] Patient Instructions: Patient Portal & Anayeli Instructions Activity Restrictions/Additional Instructions: As we discussed, your x-ray of your shoulder is unremarkable. Will place on st eroids and anti-inflammatories over the next several days to try to help with discomfort. Please follow-up with primary care for further evaluation. This may include physical therapy, continued conservative therapies, referral to orthopedics. 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
[2024-11-08 16:49] VITALS: BP 132/75; PULSE 95; RESP 18; O2SAT 100
[2024-11-08] MEDS: ketorolac 60 mg/2 mL INJ IM (16:49)
[2024-11-08] MEDS: dexamethasone 10 mg/mL INJ 8 MG IM (16:49)
== END 2024-11-08 16:50 | disposition home or self-care (01) ==
PROVIDERS: Emergency Provider Physician Assistant; PCP Nurse Practitioner
DX: S46.911A Strain of unspecified muscle, fascia and tendon at shoulder and upper arm level, right arm, initial encounter (principal); Z87.891 Personal history of nicotine dependence; X58.XXXA Exposure to other specified factors, initial encounter
CPT/HCPCS: 73030; 96372; 99284; J1100; J1885

== ENCOUNTER → 2024-12-09 14:45 | Outpatient (BNVA) | payer OTHER, SELFPAY | PROVIDERS: PCP Nurse Practitioner; Visit Provider Nurse Practitioner Family | DX: D22.9 Melanocytic nevi, unspecified (principal); L81.4 Other melanin hyperpigmentation; L57.8 Other skin changes due to chronic exposure to nonionizing radiation; L57.3 Poikiloderma of Civatte; X32.XXXA Exposure to sunlight, initial encounter; R58 Hemorrhage, not elsewhere classified; Z78.9 Other specified health status; Z29.89 Encounter for other specified prophylactic measures | CPT/HCPCS: 17110; 99203 ==